=== PATIENT | male | born 1950 | race Caucasian/White ===

== ENCOUNTER 2016-12-25 01:03 | Inpatient (IN) | payer MEDICARE, BC ==
[~2016-12-25] VITALS: Ht 167.6 cm; Wt 77.0 kg
[~2016-12-25 01:03] MED LIST: ASPI81TA3 PO; ATOR10TA65 PO; CARV6.2579 PO; LANT3I SC; LAS20 PO; NIT4 SL; Nicotine (14 Mg/24 Hr) TRANSDERM; SITA1TAB5 PO
[2016-12-25 01:08] VITALS: Ht 167.6 cm; Wt 77.0 kg
[2016-12-25] MEDS ORDERED: OXYCODONE/ACETAMINOPHEN (10/325) TAB PO ONE (01:30)
--- NOTE | 2016-12-25 01:51 | ERD ---
ER Documentation Chief Complaint Date/Time DATE: 12/25/16 TIME: 01:47 Chief Complaint R foot pain radiating to his R leg started 40 mins ago; no swelling noted HPI 66-year-old male presents here in emergency department for complaints of right foot pain on and off that radiates from her right lower back, sharp pain intermittent pain shooting pain 8/10 scale, not better or worse with anything. Patient is diabetic, does not take his gabapentin and Lyrica regularly. Patient also has history of peripheral neuropathy. Patient did exercises this morning, hit the coccyx of the back also. Patient does not have any incontinence. Patient does not have any fever or chills. Patient does not have hematuria or dysuria. ROS All systems reviewed and are negative except as per history of present illness. Medications Home Meds Active Scripts Furosemide (Lasix) 20 Mg Tab, 20 MG PO DAILY, #30 TAB Prov:EBONY LEBRON MD 04/01/16 Atorvastatin Calcium (Atorvastatin Calcium) 10 Mg Tablet, 10 MG PO QHS, #30 TAB Prov:EBONY LEBRON MD 04/01/16 Insulin Glargine* (Lantus*) 100 Unit/Ml Soln, 10 UNIT SC QHS for 90 Days Prov:WILNER CANSECO MD 04/01/16 Sitagliptin Phos/Metformin HCl (Janumet 50-1,000 mg Tablet) 1 Each Tablet, 1 EACH PO BID, #60 TAB Prov:EBONY LEBRON MD 04/01/16 Nitroglycerin* (Nitrostat*) 0.4 Mg Tab.subl, 1 TAB SL Q5M Y for CHEST PAIN, #30 Prov:EBONY LEBRON MD 04/01/16 [Nicotine (14 Mg/24 Hr)] 1 PATCH PATCH No Conflict Check, 1 PATCH TRANSDERM DAILY, #30 Prov:EBONY LEBRON MD 04/01/16 Carvedilol* (Carvedilol*) 6.25 Mg Tablet, 6.25 MG PO BID, #60 TAB Prov:EBONY LEBRON MD 04/01/16 Aspirin (Aspirin) 81 Mg Chew, 81 MG PO DAILY, #30 TAB 1 Refill Prov:EBONY LEBRON MD 04/01/16 Allergies Allergies: Coded Allergies: No Known Allergy (Unverified , 03/31/16) PMhx/Soc History of Surgery: Yes (ANGIOPLASTY, 3 STENTS) Anesthesia Reaction: No Hx Neurological Disorder: No Hx Respiratory Disorders: No Hx Cardiac Disorders: Yes ([place] 2014) Hx Psychiatric Problems: No Hx Miscellaneous Medical Probl: Yes (DM) Hx Alcohol Use: No Hx Substance Use: No Hx Tobacco Use: Yes Smoking Status: Former smoker FmHx Family History: No coronary disease, No diabetes, No other Physical Exam Vitals Vital Signs Date Time Temp Pulse Resp B/P Pulse Ox O2 Delivery O2 Flow Rate FiO2 12/25/16 01:08 97.6 70 20 122/59 96 Physical Exam GENERAL: The patient is well developed and appropriate for usual state of health, in no apparent distress. CHEST: Clear to auscultation bilaterally. There are no rales, wheezes or rhonchi. HEART: Regular rate and rhythm. No murmurs, clicks, rubs or gallops. No S3 or S4. ABDOMEN: Soft, nontender and nondistended. Good bowel sounds. No rebound or guarding. No gross peritonitis. No gross organomegaly or masses. No White sign or McBurney point tenderness. BACK: No midline or flank tenderness. Tenderness on the coccyx. EXTREMITIES: No swelling noted in the right lower leg, no Homans sign. Equal pulses bilaterally. There is no peripheral clubbing, cyanosis or edema. No focal swelling or erythema. Full range of motion. Grossly neurovascularly intact. NEURO: Alert and oriented. Cranial nerves 2-12 intact. Motor strength in all 4 extremities with 5/5 strength. Sensation grossly intact. Normal speech and gait. SKIN: There is no apparent rash or petechia. The skin is warm and dry. HEMATOLOGIC AND LYMPHATIC: There is no evidence of excessive bruising or lymphedema. No gross cervical, axillary, or inguinal lymphadenopathy. Result Diagram: 12/25/16 0150 12/25/16 0150 Results 24 hrs Laboratory Tests Test 12/25/16 01:50 White Blood Count 6.910^3/ul Red Blood Count 2.8510^6/ul Hemoglobin 8.0g/dl Hematocrit 26.4% Mean Corpuscular Volume 92.6fl Mean Corpuscular Hemoglobin 28.1pg Mean Corpuscular Hemoglobin Concent 30.3g/dl Red Cell Distribution Width 15.1% Platelet Count 9410^3/UL Mean Platelet Volume 11.5fl Neutrophils % 36.5% Lymphocytes % 54.4% Monocytes % 7.1% Eosinophils % 1.3% Basophils % 0.3% Nucleated Red Blood Cells % 0.0/100WBC Neutrophils # 2.510^3/ul Lymphocytes # 3.710^3/ul Monocytes # 0.510^3/ul Eosinophils # 0.110^3/ul Basophils # 0.010^3/ul Nucleated Red Blood Cells # 0.010^3/ul Platelet Estimate PLT APPEAR DECREASED Sodium Level 139mmol/L Potassium Level 6.2mmol/L Chloride Level 112mmol/L Carbon Dioxide Level 21mmol/L Anion Gap 12 Blood Urea Nitrogen 34mg/dl Creatinine 2.60mg/dl Glucose Level 121mg/dl Calcium Level 8.6mg/dl Total Bilirubin 0.0mg/dl Direct Bilirubin 0.00mg/dl Indirect Bilirubin 0.0mg/dl Aspartate Amino Transf (AST/SGOT) 21IU/L Alanine Aminotransferase (ALT/SGPT) 33IU/L Alkaline Phosphatase 71IU/L Total Protein 6.4g/dl Albumin 4.0g/dl Globulin 2.40g/dl Albumin/Globulin Ratio 1.66 Current Medications Medications (Trade) Dose Ordered Sig/Taylor Route PRN Reason Start Time Stop Time Status Last Admin Dose Admin Oxycodone/ Acetaminophen (Endocet (10/ 325)) 1 tab ONCE ONCE PO 12/25/16 01:30 12/25/16 01:33 DC 12/25/16 01:44 Patient was given medication for pain here in emergency department, after treatment, patient verbalized feeling much better. Patient's pain is improved. PROCEDURE: US right lower extremity venous Doppler CLINICAL INDICATION: Right leg swelling TECHNIQUE: Multiple sonographic images of the right lower extremity deep venous system was obtained utilizing grayscale, color-flow, compressive sonography and Doppler imaging with augmentation. COMPARISON: No pertinent prior examinations were submitted for comparison. FINDINGS: There is normal compressibility and flow within the right common femoral, superficial femoral, popliteal, and peroneal veins. IMPRESSION: No sonographic evidence for deep venous thrombosis. RPTAT: HIKT .Osman Abi, MD, MD Date Time Electronically viewed and signed by .Osman Alex MD, MD on 12/25/2016 02:27 .T/ CC: RAE BUCKLEY NP PROCEDURE: CT Lumbar Spine. CLINICAL INDICATION: Lower back pain TECHNIQUE: Noncontrast CT of the lumbar spine was performed with multiplanar reformatted images generated from the axial acquired data. The administered radiation dose was CTDI vol = 17 mGy, DLP = 692 mGy-cm. COMPARISON: There are no similar studies submitted for comparison. FINDINGS: SCOLIOSIS: No significant scoliosis. LORDOSIS: Within normal limits. VERTEBRAL BODY HEIGHTS: Maintained. ALLIGNMENT: Within normal limits. OSSEOUS STRUCTURES: There is no destructive osseous lesion.There is no acute fracture. DISCS: There is some mild loss of disk height throughout the lumbar spine with some minimal adjacent endplate degenerative changes. T12-L1 : There is no disc herniation, spinal canal, or foraminal stenosis. L1-L2 : There is no disc herniation, spinal canal, or foraminal stenosis. L2-L3 : There is no disc herniation, spinal canal, or foraminal stenosis. L3-L4 : There is mild diffuse disk bulge with mild spinal canal narrowing. There is no significant neural foraminal narrowing. L4-L5 : There is mild diffuse disk bulge with mild spinal canal narrowing. There is no significant neural foraminal narrowing. L5-S1 : There is mild diffuse disk bulge without significant spinal canal or neural foraminal narrowing. SACRUM: The sacroiliac joints are intact. OTHER: Atherosclerotic calcifications are noted within the aorta and its branches. There is concentric thickening of the bladder torres. A small exophytic right renal cyst is noted. IMPRESSION: Mild disk bulges from L3-4 through L5-S1. No acute fracture or subluxation. Bladder wall thickening. Please correlate with urinalysis to exclude infection. RPTAT: HIKT .Osman Alex MD, MD Date Time Electronically viewed and signed by .Osman Alex MD, MD on 12/25/2016 03:02 Laboratory tests results were obtained, critical laboratory values was obtained from the laboratory, patient has an elevated potassium of 6.2, creatinine is 2.6 , considering also microcytic anemia, patient was not at acute renal failure, unknown length of time, patient also has low hemoglobin and hematocrit, and low platelets, tachycardia causing some of the petechiae. Discussed the case with my attending physician, Dr. Morrison, facility patient's admission to the hospital. Patient's right lower leg pain and lower back pain most likely is consistent with neuropathic pain and a back contusion. Patient has degenerative disc disease possibly causing some neuropathic pain, aggravated by his diabetes. Departure Diagnosis: Primary Impression: Acute renal failure Acute renal failure type: unspecified Qualified Code: N17.9 - Acute renal failure, unspecified acute renal failure type Additional Impressions: Thrombocytopenia Back pain Back pain location: low back pain Chronicity: acute Back pain laterality: bilateral Sciatica presence: without sciatica Qualified Code: M54.5 - Acute bilateral low back pain without sciatica Leg pain Laterality: right Qualified Code: M79.604 - Pain of right lower extremity Hyperkalemia Condition: RAE eJrnigan NP Dec 25, 2016 01:51
[2016-12-25 02:16] LABS: ADD SCAN DIFF NO
[2016-12-25 02:19] LABS: ABNORMAL IP MESSAGE 1; BASOPHILS % 0.3 % (0.0-2.0); EOSINOPHILS # 0.1 10^3/ul (0.0-0.5); EOSINOPHILS % 1.3 % (0.0-7.0); HEMATOCRIT 26.4 % (42.0-52.0); LYMPHOCYTES # 3.7 10^3/ul (0.8-2.9); LYMPHOCYTES % 54.4 % (15.0-51.0); MEAN CORPUSCULAR HEMOGLOBIN 28.1 pg (29.0-33.0); MEAN CORPUSCULAR HGB CONC 30.3 g/dl (32.0-37.0); MEAN CORPUSCULAR VOLUME 92.6 fl (82.0-101.0); MEAN PLATELET VOLUME 11.5 fl (7.4-10.4); MONOCYTE # 0.5 10^3/ul (0.3-0.9); MONOCYTES % 7.1 % (0.0-11.0); NEUTROPHIL # 2.5 10^3/ul (1.6-7.5); NEUTROPHILS % 36.5 % (39.0-77.0); PLATELET COUNT 94 10^3/UL (140-415); RED BLOOD COUNT 2.85 10^6/ul (4.70-6.10); RED CELL DISTRIBUTION WIDTH 15.1 % (11.5-14.5); WHITE BLOOD COUNT 6.9 10^3/ul (4.8-10.8)
--- NOTE | 2016-12-25 02:27 | RADRPT ---
PROCEDURE: US right lower extremity venous Doppler CLINICAL INDICATION: Right leg swelling TECHNIQUE: Multiple sonographic images of the right lower extremity deep venous system was obtaine d utilizing grayscale, color-flow, compressive sonography and Doppler imaging with augmentation. COMPARISON: No pertinent prior examinations were submitted for comparison. FINDINGS: There is normal compressibility and flow within the right common femoral, superficial femoral, popli teal, and peroneal veins. IMPRESSION: No sonographic evidence for deep venous thrombosis. RPTAT: HIKT .Osman Alex MD, MD Date Time Electronically viewed and signed by .Osman Alex MD, MD on 12/25/2016 02:27 .T/
[2016-12-25 02:39] LABS: ALBUMIN/GLOBULIN RATIO 1.66; CALCIUM 8.6 mg/dl (8.4-10.2); CREATININE 2.6 mg/dl (0.61-1.24); TOTAL PROTEIN 6.4 g/dl (6.1-8.1)
[2016-12-25 02:43] LABS: PLATELET ESTIMATE PLT APPEAR DECREASED
[2016-12-25 02:46] LABS: POTASSIUM 6.2 mmol/L (3.5-5.1)
--- NOTE | 2016-12-25 03:03 | RADRPT ---
PROCEDURE: CT Lumbar Spine. CLINICAL INDICATION: Lower back pain TECHNIQUE: Noncontrast CT of the lumbar spine was performed with multiplanar reformatted images gen erated from the axial acquired data. The administered radiation dose was CTDI vol = 17 mGy, DLP = 6 92 mGy-cm. COMPARISON: There are no similar studies submitted for comparison. FINDINGS: SCOLIOSIS: No significant scoliosis. LORDOSIS: Within normal limits. VERTEBRAL BODY HEIGHTS: Maintained. ALLIGNMENT: Within normal limits. OSSEOUS STRUCTURES: There is no destructive osseous lesion.There is no acute fracture. DISCS: There is some mild loss of disk height throughout the lumbar spine with some minimal adjacent endplate degenerative changes. T12-L1 : There is no disc herniation, spinal canal, or foraminal stenosis. L1-L2 : There is no disc herniation, spinal canal, or foraminal stenosis. L2-L3 : There is no disc herniation, spinal canal, or foraminal stenosis. L3-L4 : There is mild diffuse disk bulge with mild spinal canal narrowing. There is no significant n eural foraminal narrowing. L4-L5 : There is mild diffuse disk bulge with mild spinal canal narrowing. There is no significant n eural foraminal narrowing. L5-S1 : There is mild diffuse disk bulge without significant spinal canal or neural foraminal narrow ing. SACRUM: The sacroiliac joints are intact. OTHER: Atherosclerotic calcifications are noted within the aorta and its branches. There is concent ana cristina thickening of the bladder torres. A small exophytic right renal cyst is noted. IMPRESSION: Mild disk bulges from L3-4 through L5-S1. No acute fracture or subluxation. Bladder wall thickening. Please correlate with urinalysis to exclude infection. RPTAT: HIKT .Osman Alex MD, Date Time Electronically viewed and signed by .Osman Alex MD, on 12/25/2016 03:02 .T/
[2016-12-25] MEDS ORDERED: INSULIN REGULAR, HUMAN 100 UNIT/1 ML 3ML VIAL IV STA (03:09)
[2016-12-25] MEDS ORDERED: ALBUTEROL 0.5% (NEB) 2.5 MG/0.5 ML AMP INH STA (03:09)
[2016-12-25] MEDS ORDERED: NA POLYST SULFON 15 GM/60 ML BTL PO STA (03:09)
--- NOTE | 2016-12-25 03:29 | ERA ---
ER Documentation Chief Complaint Date/Time DATE: 12/25/16 TIME: 03:23 Chief Complaint R foot pain radiating to his R leg started 40 mins ago; no swelling noted HPI The patient is 66-year-old male, presenting to the ER because of right foot pain , right leg pain that began about 40 minutes prior to arrival. He was initially seen by the PA. He denies similar symptoms previously, denies fever, chills, neck pain, chest pain, dyspnea, abdominal pain, vomiting, dysuria, diarrhea, denies any trauma. He denies any hematemesis, hematochezia Past medical history: Cardiomyopathy, diabetes mellitus, hypertension ROS All systems reviewed and are negative except as per history of present illness. Medications Home Meds Active Scripts Furosemide (Lasix) 20 Mg Tab, 20 MG PO DAILY, #30 TAB Prov:EBONY LEBRON MD 04/01/16 Atorvastatin Calcium (Atorvastatin Calcium) 10 Mg Tablet, 10 MG PO QHS, #30 TAB Prov:EBONY LEBRON MD 04/01/16 Insulin Glargine* (Lantus*) 100 Unit/Ml Soln, 10 UNIT SC QHS for 90 Days Prov:WILNER CANSECO MD 04/01/16 Sitagliptin Phos/Metformin HCl (Janumet 50-1,000 mg Tablet) 1 Each Tablet, 1 EACH PO BID, #60 TAB Prov:EBONY LEBRON MD 04/01/16 Nitroglycerin* (Nitrostat*) 0.4 Mg Tab.subl, 1 TAB SL Q5M Y for CHEST PAIN, #30 Prov:EBONY LEBRON MD 04/01/16 [Nicotine (14 Mg/24 Hr)] 1 PATCH PATCH No Conflict Check, 1 PATCH TRANSDERM DAILY, #30 Prov:EBONY LEBRON MD 04/01/16 Carvedilol* (Carvedilol*) 6.25 Mg Tablet, 6.25 MG PO BID, #60 TAB Prov:EBONY LEBRON MD 04/01/16 Aspirin (Aspirin) 81 Mg Chew, 81 MG PO DAILY, #30 TAB 1 Refill Prov:EBONY LEBRON MD 04/01/16 Allergies Allergies: Coded Allergies: No Known Allergy (Unverified , 03/31/16) PMhx/Soc History of Surgery: Yes (ANGIOPLASTY, 3 STENTS) Anesthesia Reaction: No Hx Neurological Disorder: No Hx Respiratory Disorders: No Hx Cardiac Disorders: Yes ([place] 2014) Hx Psychiatric Problems: No Hx Miscellaneous Medical Probl: Yes (DM) Hx Alcohol Use: No Hx Substance Use: No Hx Tobacco Use: Yes Smoking Status: Former smoker Physical Exam Vitals Vital Signs Date Time Temp Pulse Resp B/P Pulse Ox O2 Delivery O2 Flow Rate FiO2 12/25/16 01:08 97.6 70 20 122/59 96 Physical Exam Const: No acute distress. Head: Atraumatic. Eyes: Normal Conjunctiva. ENT: Normal External Ears, Nose and Mouth. Neck: Full range of motion. No meningismus. Resp: Clear to auscultation bilaterally. Cardio: Regular rate and rhythm. Abd: Soft, non distended, normal bowel sounds, non tender. Skin: No petechiae or rashes. Back: No midline or flank tenderness. Ext: Minimal right calf tenderness, no petechiae, no vesicles Neur: Awake and alert. No focal deficit Psych: Normal Mood and Affect. Result Diagram: 12/25/16 0150 12/25/16 0150 Results 24 hrs Laboratory Tests Test 12/25/16 01:50 White Blood Count 6.910^3/ul Red Blood Count 2.8510^6/ul Hemoglobin 8.0g/dl Hematocrit 26.4% Mean Corpuscular Volume 92.6fl Mean Corpuscular Hemoglobin 28.1pg Mean Corpuscular Hemoglobin Concent 30.3g/dl Red Cell Distribution Width 15.1% Platelet Count 9410^3/UL Mean Platelet Volume 11.5fl Neutrophils % 36.5% Lymphocytes % 54.4% Monocytes % 7.1% Eosinophils % 1.3% Basophils % 0.3% Nucleated Red Blood Cells % 0.0/100WBC Neutrophils # 2.510^3/ul Lymphocytes # 3.710^3/ul Monocytes # 0.510^3/ul Eosinophils # 0.110^3/ul Basophils # 0.010^3/ul Nucleated Red Blood Cells # 0.010^3/ul Platelet Estimate PLT APPEAR DECREASED Sodium Level 139mmol/L Potassium Level 6.2mmol/L Chloride Level 112mmol/L Carbon Dioxide Level 21mmol/L Anion Gap 12 Blood Urea Nitrogen 34mg/dl Creatinine 2.60mg/dl Glucose Level 121mg/dl Calcium Level 8.6mg/dl Total Bilirubin 0.0mg/dl Direct Bilirubin 0.00mg/dl Indirect Bilirubin 0.0mg/dl Aspartate Amino Transf (AST/SGOT) 21IU/L Alanine Aminotransferase (ALT/SGPT) 33IU/L Alkaline Phosphatase 71IU/L Total Protein 6.4g/dl Albumin 4.0g/dl Globulin 2.40g/dl Albumin/Globulin Ratio 1.66 Current Medications Medications (Trade) Dose Ordered Sig/Taylor Route PRN Reason Start Time Stop Time Status Last Admin Dose Admin Oxycodone/ Acetaminophen (Endocet (10)) 1 tab ONCE ONCE PO 12/25/16 01:30 12/25/16 01:33 DC 12/25/16 01:44 Sodium Polystyrene Sulfonate (Kayexalate) 30 gm ONCE STAT PO 12/25/16 03:09 12/25/16 03:12 DC Albuterol (Proventil 0.5% (Neb)) 15 mg ONCE STAT INH 12/25/16 03:09 12/25/16 03:12 DC 12/25/16 03:21 Insulin Human Regular (Humulin R) 10 unit ONCE STAT IV 12/25/16 03:09 12/25/16 03:12 DC Dextrose (D50w Syringe) 100 ml ONCE ONCE IV 12/25/16 03:30 12/25/16 03:31 Procedures/[place] [id number] Radiology Main Line: [phone] DIAGNOSTIC IMAGING REPORT Patient: MANOLO BRAND : 1950 Age: 66 Sex: M MR #: [id number] DOS: 12/25/16 0129 Ordering MD: RAE BUCKLEY NP Location: [facility] Room/Bed: PROCEDURE: US right lower extremity venous Doppler CLINICAL INDICATION: Right leg swelling TECHNIQUE: Multiple sonographic images of the right lower extremity deep venous system was obtained utilizing grayscale, color-flow, compressive sonography and Doppler imaging with augmentation. COMPARISON: No pertinent prior examinations were submitted for comparison. FINDINGS: There is normal compressibility and flow within the right common femoral, superficial femoral, popliteal, and peroneal veins. IMPRESSION: No sonographic evidence for deep venous thrombosis. RPTAT: HIKT .Osman Alex MD, Date Time Electronically viewed and signed by .Osman Alex MD, on 12/25/2016 02:27 .T/ CC: RAE BUCKLEY NP EKG: Read by emergency physician Rate/Rhythm: Normal Sinus Rhythm 63 beats/min QRS, ST, T-waves: No ST elevation, peak T waves in anterior leads, septal Q waves Impression: Abnormal EKG MEDICAL MAKING DECISION: The patient is a 66-year-old male, presenting with acute kidney injury, acute hyperkalemia, probable acute GI bleed, anemia, thrombocytopenia and right leg pain of unclear etiology. He was treated with albuterol and 50 mg nebulizer over 15 minute, 2 amp D50 IV, 10 units of regular insulin IV, Kayexalate 30 g p.o. for acute hyperkalemia with good response per The differential diagnoses considered include but are not limited to gastritis, peptic ulcer disease, esophageal varices, Chelsie-Harp tear, carcinoma, polyp, hemorrhoid, fissure, diverticulosis, angiodysplasia. Critical Care: Time: 35 minutes excluding all billable procedures. Treatments/Evaluations: Close monitoring and treatment of unstable vital signs, cardiorespiratory, and neurologic status, while maintaining tight balance of fluid, respiratory, and cardiac interventions. Departure Diagnosis: Primary Impression: Acute renal failure Qualified Code: N17.9 - Acute renal failure, unspecified acute renal failure type Additional Impressions: Hyperkalemia GI bleed Anemia Thrombocytopenia Condition: Serious Comments I discussed the findings with the patient. I discussed the patient with the on- call hospitalist Dr. Kilgore at 3 AM who was made aware of the lab, the treatment, the patient condition. The patient is admitted to telemetry STERLING AGUILAR MD Dec 25, 2016 03:28
[2016-12-25] MEDS ORDERED: DEXTROSE 50% 50 ML SYRINGE IV ONE (03:30)
[2016-12-25] MEDS ORDERED: BISACODYL (EC) 5 MG TAB PO PRN (05:00)
[2016-12-25] MEDS ORDERED: DOCUSATE SODIUM 100 MG CAP PO PRN (05:00)
[2016-12-25] MEDS ORDERED: morphine 2 MG INJ IV PRN (05:00)
[2016-12-25] MEDS ORDERED: NACL 0.9% 3 ML SYG IV SCH (05:00)
[2016-12-25] MEDS ORDERED: ACETAMINOPHEN 325 MG TAB PO PRN (05:00)
[2016-12-25] MEDS: ONDANSETRON 4 MG INJ IV PRN ×2 (05:46→13:50)
[2016-12-25] MEDS: HEPARIN 5,000 UNIT/0.5 ML VIAL SC SCH ×3 (05:46→22:50)
[2016-12-25] MEDS ORDERED: PANTOPRAZOLE 40 MG INJ IV SCH (06:00)
[2016-12-25] MEDS ORDERED: FUROSEMIDE 20 MG TAB PO SCH (06:00)
--- NOTE | 2016-12-25 06:48 | HP ---
Date/Time of Note Date/Time of Note DATE: 12/25/16 TIME: 06:34 Assessment/Plan VTE Prophylaxis VTE Prophylaxis Intervention: SCD's Lines/Catheters IV Catheter Type (from Nrsg): Peripheral IV Assessment/Plan Chief Complaint/Hosp Course This is a 66-year-old male being admitted to telemetry floor for: #1 Right foot: Patient is having intermittent episodes of shooting pains in his right foot second digit and third digit. There are no lesions noted of the digits. There is poorly healing wound at the right medial malleolus which is nontender. At the current time the etiology of this pain appears to be neuropathy however patient has never had this sort of pain before. Initially we will get x-rays of the foot. We will consult podiatry for further evaluation. IV pain medications to help with pain control. Consider starting Lyrica/gabapentin. Ultrasound was negative for any DVTs. #2 chronic kidney disease: Patient's outpatient relief master is Dr. Hodges, however he is unavailable and he requested patient to be seen by another relief master. Consult placed to Dr. Quach. Will provide him some IV fluid hydration. Please see #3 regarding hyperkalemia. #3 hyperkalemia: Patient's potassium is 6.2. He was give treatment in the ED for the hyperkalemia. We will repeat a potassium in the next 2 hours. And treat if indicated. #4 diabetes mellitus: Check A1c. Continue home insulin dose. Insulin sliding scale #5 coronary artery disease: Continue home medications. #6 Normocytic anemia: Hemoglobin of 8. This likely secondary to patient's underlying chronic kidney disease. Continue to monitor hemoglobin. Blood transfusions if hemoglobin drops below 8 secondary to patient's cardiac history. Will defer to nephrology for Procrit/Epogen treatment. #7 back pain: Patient had mild tenderness to palpation of the left gluteal/ coccyx region. Lumbar imaging studies showed mild disc bulges but no acute subluxation. Continue to monitor. #8 DVT and GI prophylaxis: SCDs, Protonix Further treatment strategy will be implemented as per the clinical course Problems: HPI/ROS Admit Date/Time Admit Date/Time Hx of Present Illness Chief complaint: Right second and third digit toe pain This is a 66-year-old male presents here in emergency department for complaints of right foot pain on and off that radiates from her right lower back, sharp pain intermittent pain shooting pain 8/10 scale, not better or worse with anything. Patient is diabetic, does not take his gabapentin and Lyrica regularly. Patient also has history of peripheral neuropathy. Patient did exercises this morning, hit the coccyx of the back also. Patient does not have any incontinence. Patient does not have any fever or chills. Patient does not have hematuria or dysuria. Allergies: NKDA Medications: See SHARON PIMENTEL Const: As per HPI Eyes : No pain discharge or redness or change in visual acuity ENT: No pain, sore throat, congestion, congestion, dysphagia or discharge Respiratory: No shortness of breath, cough, sputum, wheezing, or pleuritic pain Cardiovascular: No chest pain, palpitation, PND, or edema GI : no change in appetite, abdominal pain, nausea, vomiting, diarrhea, constipation, or change in the color his stool Genitourinary: No dysuria, hematuria, flank pain , discharge or CVA tenderness Musculoskeletal: As per HPI Skin: No rash, bruising or hives Neuro: No headache, dizziness, syncope, seizure, focal weakness Endocrine: No polyuria, polydipsia, temperature intolerance Psych: No hallucination, depression, anxiety or suicidal ideation PMH/Family/Social Past Medical History Chronic kidney disease, diabetes mellitus, coronary artery disease, history of MS Past Surgical History Cardiac stents 2 Family History Significant Family History: hypertension Social History Smoking Status: Former smoker (Quit 8 months ago, [id number] smoking history) Exam/Review of Systems Vital Signs Vitals Vital Signs Date Time Temp Pulse Resp B/P Pulse Ox O2 Delivery O2 Flow Rate FiO2 12/25/16 03:23 70 18 97 21 12/25/16 01:08 97.6 122/59 Exam Exam General: Patient is well-developed male lying in bed who has intermittent spurts of pain in his right lower extremity at the toes that come and go. HEENT: Atraumatic, normocephalic. The pupils are equal, round and reactive. Extraocular motor are intact Neck: Supple with full range of motion. No rigidity or meningismus Chest: Nontender Lungs: Clear to auscultation bilaterally no crackles rales or wheezing Heart: Normal S1-S2, Regular rhythm and rate. No murmur, S3, or S4 Abdomen: Soft , nontender, nondistended , bowel sounds are present. No guarding no rebound tenderness , No masses or organomegaly. No costovertebral temporal angle mass Extremities: Normal to inspection, no edema no cyanosis, no lesions of the right second and third digits of the right foot. He does have a small lesion at the medial malleolus which is nontender. Left gluteus/coccyx pain to palpation. Neurologic: Normal mental status, speech normal, cranial nerves II through XII are intact, motor and sensory are intact, no focal weakness Additional Comments PROCEDURE: CT Lumbar Spine. CLINICAL INDICATION: Lower back pain TECHNIQUE: Noncontrast CT of the lumbar spine was performed with multiplanar reformatted images generated from the axial acquired data. The administered radiation dose was CTDI vol = 17 mGy, DLP = 692 mGy-cm. COMPARISON: There are no similar studies submitted for comparison. FINDINGS: SCOLIOSIS: No significant scoliosis. LORDOSIS: Within normal limits. VERTEBRAL BODY HEIGHTS: Maintained. ALLIGNMENT: Within normal limits. OSSEOUS STRUCTURES: There is no destructive osseous lesion.There is no acute fracture. DISCS: There is some mild loss of disk height throughout the lumbar spine with some minimal adjacent endplate degenerative changes. T12-L1 : There is no disc herniation, spinal canal, or foraminal stenosis. L1-L2 : There is no disc herniation, spinal canal, or foraminal stenosis. L2-L3 : There is no disc herniation, spinal canal, or foraminal stenosis. L3-L4 : There is mild diffuse disk bulge with mild spinal canal narrowing. There is no significant neural foraminal narrowing. L4-L5 : There is mild diffuse disk bulge with mild spinal canal narrowing. There is no significant neural foraminal narrowing. L5-S1 : There is mild diffuse disk bulge without significant spinal canal or neural foraminal narrowing. SACRUM: The sacroiliac joints are intact. OTHER: Atherosclerotic calcifications are noted within the aorta and its branches. There is concentric thickening of the bladder torres. A small exophytic right renal cyst is noted. IMPRESSION: Mild disk bulges from L3-4 through L5-S1. No acute fracture or subluxation. Bladder wall thickening. Please correlate with urinalysis to exclude infection. RPTAT: HIKT .Osman Alex MD, MD Date Time Electronically viewed and signed by .Osman Alex MD, MD on 12/25/2016 03:02 PROCEDURE: US right lower extremity venous Doppler CLINICAL INDICATION: Right leg swelling TECHNIQUE: Multiple sonographic images of the right lower extremity deep venous system was obtained utilizing grayscale, color-flow, compressive sonography and Doppler imaging with augmentation. COMPARISON: No pertinent prior examinations were submitted for comparison. FINDINGS: There is normal compressibility and flow within the right common femoral, superficial femoral, popliteal, and peroneal veins. IMPRESSION: No sonographic evidence for deep venous thrombosis. RPTAT: HIKT .Osman Alex MD, Date Time Electronically viewed and signed by .Osman Alex MD, on 12/25/2016 02:27 Labs Result Diagram: 12/25/16 0150 12/25/16 0150 Medications Medications Current Medications Aspirin (Aspirin) 81 mg DAILY PO ; Start 12/25/16 at 09:00 Atorvastatin Calcium (Lipitor) 10 mg QHS PO ; Start 12/25/16 at 21:00 Carvedilol (Coreg) 6.25 mg BID PO ; Start 12/25/16 at 09:00 Furosemide (Lasix) 20 mg DAILY@06 PO Last administered on 12/25/16 05:44; Admin Dose 20 MG; Start 12/25/16 at 06:00 Insulin Glargine (Lantus) 10 unit QHS SC ; Start 12/25/16 at 21:00 Nicotine (Nicoderm 14 Mg/ 24hr) 1 patch DAILY TRANSDERM ; Start 12/25/16 at 09: 00 Ondansetron HCl (Zofran Inj) 4 mg Q6H PRN IV NAUSEA AND/OR VOMITING Last administered on 12/25/16 05:46; Admin Dose 4 MG; Start 12/25/16 at 05:00 Acetaminophen (Tylenol Tab) 650 mg Q6H PRN PO PAIN LEVEL 1-3 OR FEVER; Start at 05:00 Docusate Sodium (Colace) 100 mg Q12H PRN PO CONSTIPATION; Start 12/25/16 at 05: 00 Bisacodyl (Dulcolax) 5 mg DAILY PRN PO CONSTIPATION; Start 12/25/16 at 05:00 Pantoprazole (Protonix Iv) 40 mg DAILY@06 IV Last administered on 12/25/16 05: 45; Admin Dose 40 MG; Start 12/25/16 at 06:00 Heparin Sodium (Porcine) (Heparin (5000 Units/0.5 ml)) 5,000 unit Q8 SC Last administered on 12/25/16 05:46; Admin Dose 5,000 UNIT; Start 12/25/16 at 06:00 Hydromorphone HCl (Dilaudid) 1 mg Q4H PRN IV PAIN; Start 12/25/16 at 06:30; Status DMITRY CAMPOS Dec 25, 2016 06:44
[2016-12-25] MEDS: HYDROmorphONE 1 MG/ML SYG IV PRN ×3 (07:12→13:03)
--- NOTE | 2016-12-25 07:46 | RADRPT ---
PROCEDURE: XR Foot. CLINICAL INDICATION: Second and third digit pain TECHNIQUE: Three views of the right foot are available for review. COMPARISON: None available FINDINGS: The osseous structures, articular spaces, and surrounding soft tissues are intact. No acute fractur e or dislocation is seen. No radiopaque foreign body is identified. Bony mineralization is normal. IMPRESSION: 1. Unremarkable right foot x-ray series. RPTAT: PP .Ryder Pulido MD, MD Date Time Electronically viewed and signed by .Ryder Pulido MD, on 12/25/2016 07:45 .R/
[2016-12-25] MEDS: ASPIRIN 81 MG TAB PO SCH (08:39)
[2016-12-25] MEDS: NICOTINE (14 MG/24 HR) PATCH TRANSDERM SCH (08:40)
[2016-12-25 12:11] LABS: ADD SCAN DIFF NO
[2016-12-25 12:13] LABS: BASOPHILS % 0.6 % (0.0-2.0); EOSINOPHILS # 0.1 10^3/ul (0.0-0.5); EOSINOPHILS % 1.3 % (0.0-7.0); HEMATOCRIT 27.1 % (42.0-52.0); HEMOGLOBIN 8.6 g/dl (14.0-18.0); LYMPHOCYTES % 55.8 % (15.0-51.0); MEAN CORPUSCULAR HEMOGLOBIN 28.5 pg (29.0-33.0); MEAN CORPUSCULAR HGB CONC 31.7 g/dl (32.0-37.0); MEAN CORPUSCULAR VOLUME 89.7 fl (82.0-101.0); MONOCYTE # 0.5 10^3/ul (0.3-0.9); MONOCYTES % 6.3 % (0.0-11.0); NEUTROPHIL # 2.5 10^3/ul (1.6-7.5); NEUTROPHILS % 35.6 % (39.0-77.0); PLATELET COUNT 160 10^3/UL (140-415); RED BLOOD COUNT 3.02 10^6/ul (4.70-6.10); RED CELL DISTRIBUTION WIDTH 15.1 % (11.5-14.5); WHITE BLOOD COUNT 7.1 10^3/ul (4.8-10.8)
[2016-12-25 12:56] LABS: CHOL/HDL RATIO 7.4 RATIO
[2016-12-25] MEDS ORDERED: MAGNESIUM SULFATE 2 GM/50 ML 50 ML IVPB ONE (15:00)
[2016-12-25 15:27] LABS: CALCIUM 8.7 mg/dl (8.4-10.2); CREATININE 2.35 mg/dl (0.61-1.24)
[2016-12-25] MEDS ORDERED: traMADol 50 MG TAB PO PRN (16:00)
--- NOTE | 2016-12-25 16:15 | PN ---
Date/Time of Note Date/Time of Note DATE: 12/25/16 TIME: 16:09 Assessment/Plan VTE Prophylaxis VTE Prophylaxis Intervention: SCD's Lines/Catheters IV Catheter Type (from Nrsg): Peripheral IV Assessment/Plan Assessment/Plan 66 yo M with pmhx HTN, DM, initially presented for R foot pain also incidentally found to have PHIL, hyperkalemia and anemia. #R foot pain: imaging without evidence of fracture. consider occult fracture v mortons neuroma v other no open wounds, given palpable pulse and nl cap refill less likely vascular process -podiatry to see #PHIL: etio unclear. Dehydration v other check urine lytes to determine pre/instrinsic/post renal check YESIKA though unlikely obstruction as no c/o urinary difficulties IVFs holding home lasix #hyperkalemia: suspect 2/2 PHIL given no report in ER notes of EKG abs, defer additional aggressive hyperK treatment at this time IVFs, low K diet consider lasix if Cr improves #anemia: etio and time course unclear. GI source v CKD v other FOBT iron studies #elevated TSH: incidental finding. check t4 #DM2: SSI and basal/bolus #tobacco abuse: NRT FEN: low K diet, mIVFs, DVT prophx Subjective 24 Hr Interval Summary Free Text/Dictation Pt still with intermittent R foot pain. Possibly wasn't taking in enough fluids in days prior to admission when he was exercising in the heat. Denies dark stool. Also denies any R foot injury Exam/Review of Systems Vital Signs Vitals Vital Signs Date Time Temp Pulse Resp B/P Pulse Ox O2 Delivery O2 Flow Rate FiO2 12/25/16 11:20 97.6 80 12 111/94 99 Room Air 12/25/16 03:23 21 Exam nad, laying in bed no mrg lungs clear abd soft R foot with palpable DP pulse, nl cap refill, +ttp in area between great and second toe MCPs. repeat ChemP with slightly improve K and Cr Hgb noted Results Result Diagram: 12/25/16 1200 12/25/16 1455 Results 24 hrs Laboratory Tests Test 12/25/16 01:50 12/25/16 12:00 12/25/16 14:55 White Blood Count 6.9 7.1 Red Blood Count 2.85 #L 3.02 L Hemoglobin 8.0 #L 8.6 L Hematocrit 26.4 #L 27.1 L Mean Corpuscular Volume 92.6 89.7 Mean Corpuscular Hemoglobin 28.1 L 28.5 L Mean Corpuscular Hemoglobin Concent 30.3 L 31.7 L Red Cell Distribution Width 15.1 H 15.1 H Platelet Count 94 L 160 # Mean Platelet Volume 11.5 #H 10.0 Neutrophils % 36.5 L 35.6 L Lymphocytes % 54.4 H 55.8 H Monocytes % 7.1 6.3 Eosinophils % 1.3 1.3 Basophils % 0.3 0.6 Nucleated Red Blood Cells % 0.0 0.0 Neutrophils # 2.5 2.5 Lymphocytes # 3.7 H 4.0 H Monocytes # 0.5 0.5 Eosinophils # 0.1 0.1 Basophils # 0.0 0.0 Nucleated Red Blood Cells # 0.0 0.0 Platelet Estimate PLT APPEAR DECREASED Sodium Level 139 143 Potassium Level 6.2 *H 6.0 H Chloride Level 112 H 106 Carbon Dioxide Level 21 23 Anion Gap 12 20 #H Blood Urea Nitrogen 34 H 33 H Creatinine 2.60 H 2.35 H Glucose Level 121 165 Calcium Level 8.6 8.7 Total Bilirubin 0.0 L Direct Bilirubin 0.00 Indirect Bilirubin 0.0 Aspartate Amino Transf (AST/SGOT) 21 Alanine Aminotransferase (ALT/SGPT) 33 Alkaline Phosphatase 71 Total Protein 6.4 Albumin 4.0 Globulin 2.40 Albumin/Globulin Ratio 1.66 Hemoglobin A1c 8.0 H Magnesium Level 1.1 L Triglycerides Level 266 H Cholesterol Level 232 H LDL Cholesterol, Calculated 148 HDL Cholesterol 31 Cholesterol/HDL Ratio 7.4 Thyroid Stimulating Hormone (TSH) 10.800 H Free Thyroxine 1.21 Thyroxine (T4) 8.0 Medications Medications Current Medications Aspirin (Aspirin) 81 mg DAILY PO Last administered on 12/25/16 08:39; Admin Dose 81 MG; Start 12/25/16 at 09:00 Atorvastatin Calcium (Lipitor) 10 mg QHS PO ; Start 12/25/16 at 21:00 Carvedilol (Coreg) 6.25 mg BID PO ; Start 12/25/16 at 09:00 Furosemide (Lasix) 20 mg DAILY@06 PO Last administered on 12/25/16 05:44; Admin Dose 20 MG; Start 12/25/16 at 06:00 Insulin Glargine (Lantus) 10 unit QHS SC ; Start 12/25/16 at 21:00 Nicotine (Nicoderm 14 Mg/ 24hr) 1 patch DAILY TRANSDERM ; Start 12/25/16 at 09: 00 Ondansetron HCl (Zofran Inj) 4 mg Q6H PRN IV NAUSEA AND/OR VOMITING Last administered on 12/25/16 13:50; Admin Dose 4 MG; Start 12/25/16 at 05:00 Acetaminophen (Tylenol Tab) 650 mg Q6H PRN PO PAIN LEVEL 1-3 OR FEVER; Start at 05:00 Docusate Sodium (Colace) 100 mg Q12H PRN PO CONSTIPATION; Start 12/25/16 at 05: 00 Bisacodyl (Dulcolax) 5 mg DAILY PRN PO CONSTIPATION; Start 12/25/16 at 05:00 Heparin Sodium (Porcine) 5000 unit 5,000 unit Q8 SC Last administered on 14:13; Admin Dose 5,000 UNIT; Start 12/25/16 at 06:00 Magnesium Sulfate 50 ml @ 25 mls/hr ONCE ONCE IVPB ; Start 12/25/16 at 15:00; Stop 12/25/16 at 16:59 Sodium Chloride (NS) 1,000 ml @ 125 mls/hr Q8H IV ; Start 12/25/16 at 15:00 Tramadol HCl (Ultram) 50 mg Q6H PRN PO pain; Start 12/25/16 at 16:00 FERNANDEZ GIANG MD Dec 25, 2016 16:15
[2016-12-25] MEDS: SOD CHLORIDE 0.9% 1,000 ML IV SCH ×2 (17:18→23:00)
--- NOTE | 2016-12-25 17:21 | RADRPT ---
PROCEDURE: US Renal CLINICAL INDICATION: Acute renal insufficiency. TECHNIQUE: Multiple sonographic images of the kidneys and bladder were obtained. Evaluation of th e kidneys and bladder was performed as well with batres scale and color and Doppler evaluation using a curved array transducer. The images were reviewed on a high-resolution PACS workstation. COMPARISON: No prior studies are available for comparison. FINDINGS: The right kidney measures 12.0 x 5.4 x 5.9 cm. The left kidney measures 12.4 x 5.2 x 5.2 cm. There is normal echogenicity within the parenchyma of the kidneys bilaterally. There is no evidence of hydronephrosis or abnormal calcifications. There is a 1.0 cm cortical cyst in the right kidney.. No perinephric fluid collection is seen. Evaluation of the urinary bladder is unremarkable. IMPRESSION: 1. 1.0 cm right renal cortical cyst. RPTAT: [facility] Physician Abraham Date Time Electronically viewed and signed by Physician Abraham on 12/25/2016 17:20 /
[2016-12-25 17:43] LABS: ADD UMIC YES; UR ASCORBIC ACID NEGATIVE (NEGATIVE); UR BILIRUBIN (Dip) NEGATIVE (NEGATIVE); UR BLOOD (Dip) NEGATIVE (NEGATIVE); UR CLARITY CLEAR (CLEAR); UR COLOR STRAW (YELLOW); UR GLUCOSE (Dip) 1+ mg/dL (NEGATIVE); UR KETONES (Dip) NEGATIVE (NEGATIVE); UR LEUKOCYTE ESTERASE (Dip) NEGATIVE Leu/ul (NEGATIVE); UR NITRITE (Dip) NEGATIVE (NEGATIVE); UR RBC 1 /HPF (0-5); UR TOTAL PROTEIN (Dip) 1+ mg/dl (NEGATIVE); UR UROBILINOGEN (Dip) NEGATIVE (NEGATIVE)
[2016-12-25 19:17] VITALS: TEMP 98.5
[2016-12-25 20:45] VITALS: BP 167/78; RESP 18
[2016-12-25] MEDS ORDERED: INSULIN GLARGINE [LANtus] 3 ML PEN SC SCH (21:00)
[2016-12-25] MEDS ORDERED: ATORVASTATIN 10 MG TAB PO SCH (21:00)
[2016-12-25 22:00] VITALS: BP 123/61; PULSE 82; RESP 16
[2016-12-25] MEDS ORDERED: CLOP75TA27 PO (22:13)
[2016-12-25] MEDS ORDERED: SPIR25TA PO (22:13)
[2016-12-25] MEDS ORDERED: DEXTROSE 50% 50 ML SYRINGE IV PRN ×2 (22:15)
[2016-12-25] MEDS ORDERED: LISI10TA2 PO (22:15)
[2016-12-25] MEDS ORDERED: GLUCAGON 1 MG INJ IM PRN (22:15)
[2016-12-25] MEDS ORDERED: GLUCOSE GEL 15 GRAM TUBE BUCCAL PRN (22:15)
[2016-12-25] MEDS ORDERED: GLUCOSE GEL 15 GRAM TUBE PO PRN ×2 (22:15)
[2016-12-25] MEDS ORDERED: CARV25TA79 PO (22:16)
[2016-12-25] MEDS ORDERED: NA POLYST SULFON 15 GM/60 ML BTL PO ONE (23:30)
[2016-12-26] MEDS ORDERED: ACCU-CHEK XX SCH ×2 (02:00)
[2016-12-26 02:05] VITALS: BP 137/62; RESP 16
[2016-12-26] MEDS: SOD CHLORIDE 0.9% 1,000 ML IV SCH ×2 (02:16→15:00)
[2016-12-26] MEDS: HEPARIN 5,000 UNIT/0.5 ML VIAL SC SCH ×2 (06:37→13:34)
[2016-12-26 07:36] VITALS: BP 129/61; RESP 18
[2016-12-26] MEDS: INSULIN ASPART [NOVOLOG] 3 ML PEN SC SCH ×2 (08:02→12:33)
[2016-12-26 08:27] LABS: ADD SCAN DIFF NO
[2016-12-26 08:30] LABS: BASOPHILS % 0.5 % (0.0-2.0); EOSINOPHILS # 0.1 10^3/ul (0.0-0.5); EOSINOPHILS % 1.7 % (0.0-7.0); HEMATOCRIT 24.3 % (42.0-52.0); HEMOGLOBIN 7.8 g/dl (14.0-18.0); LYMPHOCYTES # 3.4 10^3/ul (0.8-2.9); LYMPHOCYTES % 51.8 % (15.0-51.0); MEAN CORPUSCULAR HEMOGLOBIN 29.2 pg (29.0-33.0); MEAN CORPUSCULAR HGB CONC 32.1 g/dl (32.0-37.0); MEAN PLATELET VOLUME 10.7 fl (7.4-10.4); MONOCYTE # 0.5 10^3/ul (0.3-0.9); NEUTROPHIL # 2.5 10^3/ul (1.6-7.5); NEUTROPHILS % 38.5 % (39.0-77.0); PLATELET COUNT 154 10^3/UL (140-415); RED BLOOD COUNT 2.67 10^6/ul (4.70-6.10); RED CELL DISTRIBUTION WIDTH 15.1 % (11.5-14.5); WHITE BLOOD COUNT 6.6 10^3/ul (4.8-10.8)
[2016-12-26] MEDS: ASPIRIN 81 MG TAB PO SCH (08:50)
[2016-12-26 08:51] LABS: IRON 44 ug/dl (35-150)
[2016-12-26] MEDS: NICOTINE (14 MG/24 HR) PATCH TRANSDERM SCH (08:51)
[2016-12-26 08:52] LABS: CREATININE 2.24 mg/dl (0.61-1.24); POTASSIUM 5.2 mmol/L (3.5-5.1)
[2016-12-26 08:53] LABS: ALBUMIN 3.7 g/dl (3.3-4.9); ALBUMIN/GLOBULIN RATIO 1.6
[2016-12-26] MEDS ORDERED: CLOPIDOGREL 75 MG TAB PO SCH (09:00)
[2016-12-26 09:01] LABS: TOTAL IRON BINDING CAPACITY 305 ug/dl (241-421)
--- NOTE | 2016-12-26 09:21 | CONS ---
Date/Time of Note Date/Time of Note DATE: 12/26/16 TIME: 08:44 Assessment/Plan Assessment/Plan Chief Complaint/Hosp Course #1 Acute on possible chronic kidney disease: Patient's outpatient restaurant assistant is Dr. Hodges, essentially normal in 2016, nonoliguric. FENa>1. minimal proteinuria. unclear baseline. #2 Right foot: Patient is having intermittent episodes of shooting pains in his right foot second digit and third digit. There are no lesions noted of the digits. There is poorly healing wound at the right medial malleolus which is nontender. At the current time the etiology of this pain appears to be neuropathy however patient has never had this sort of pain before. Initially we will get x-rays of the foot. podiatry for further evaluation. Consider starting Lyrica/gabapentin. Ultrasound was negative for any DVTs. #3 hyperkalemia: possibly related to janice. possibly typ IV RTA. fu ttkg. #4 diabetes mellitus: Check A1c. Continue home insulin dose. Insulin sliding scale #5 coronary artery disease: Continue home medications. #6 Normocytic anemia: Hemoglobin of 8. This likely secondary to patient's underlying chronic kidney disease. Continue to monitor hemoglobin. Blood transfusions if hemoglobin drops below 8 secondary to patient's cardiac history. Will defer to nephrology for Procrit/Epogen treatment. #7 back pain: Patient had mild tenderness to palpation of the left gluteal/ coccyx region. Lumbar imaging studies showed mild disc bulges but no acute subluxation. Continue to monitor. #8 DVT and GI prophylaxis: SCDs, Protonix Problems: Consultation Date/Type/Reason Admit Date/Time Date of Consultation: Dec 26, 2016 Type of Consultation: neph Hx of Present Illness This is a 66-year-old male presents here in emergency department for complaints of right foot pain on and off that radiates from her right lower back, sharp pain intermittent pain shooting pain 8/10 scale, not better or worse with anything. Patient is diabetic, does not take his gabapentin and Lyrica regularly. Patient also has history of peripheral neuropathy. Patient did exercises this morning, hit the coccyx of the back also. Patient does not have any incontinence. Patient does not have any fever or chills. Patient does not have hematuria or dysuria. Noted to have janice. baseline in 2016 was essentially normal. patient denies recent nsaid use. said he was taken off janumet. denies frequent uti or nephrolithiasis. Allergies: NKDA Medications: See AUG ROS Const: As per HPI Eyes : No pain discharge or redness or change in visual acuity ENT: No pain, sore throat, congestion, congestion, dysphagia or discharge Respiratory: No shortness of breath, cough, sputum, wheezing, or pleuritic pain Cardiovascular: No chest pain, palpitation, PND, or edema GI : no change in appetite, abdominal pain, nausea, vomiting, diarrhea, constipation, or change in the color his stool Genitourinary: No dysuria, hematuria, flank pain , discharge or CVA tenderness Musculoskeletal: As per HPI Skin: No rash, bruising or hives Neuro: No headache, dizziness, syncope, seizure, focal weakness Endocrine: No polyuria, polydipsia, temperature intolerance Psych: No hallucination, depression, anxiety or suicidal ideation PMH/Family/Social PMH/Family/Social Past Medical History Chronic kidney disease, diabetes mellitus, coronary artery disease, history of ID Past Surgical History Cardiac stents 2 Family History Significant Family History: hypertension Social History Smoking Status: Former smoker (Quit 8 months ago, [id number]-[id number] smoking history) Social History Smoking Status: Former smoker Exam/Review of Systems Vital Signs Vitals Vital Signs Date Time Temp Pulse Resp B/P Pulse Ox O2 Delivery O2 Flow Rate FiO2 12/26/16 07:36 98.8 82 18 129/61 98 12/25/16 22:00 Room Air 12/25/16 03:23 21 Intake and Output 12/25/16 12/25/16 12/26/16 15:00 23:00 07:00 Intake Total 1585 ml Balance 1585 ml Exam General: Patient is well-developed male lying in bed who has intermittent spurts of pain in his right lower extremity at the toes that come and go. HEENT: Atraumatic, normocephalic. The pupils are equal, round and reactive. Extraocular motor are intact Neck: Supple with full range of motion. No rigidity or meningismus Chest: Nontender Lungs: Clear to auscultation bilaterally no crackles rales or wheezing Heart: Normal S1-S2, Regular rhythm and rate. No murmur, S3, or S4 Abdomen: Soft , nontender, nondistended , bowel sounds are present. No guarding no rebound tenderness , No masses or organomegaly. No costovertebral temporal angle mass Extremities: Normal to inspection, no edema no cyanosis, no lesions of the right second and third digits of the right foot. He does have a small lesion at the medial malleolus which is nontender. Left gluteus/coccyx pain to palpation. Neurologic: Normal mental status, speech normal, cranial nerves II through XII are intact, motor and sensory are intact, no focal weakness Results Result Diagram: 12/26/16 0806 12/25/16 1455 Results 24 hrs Laboratory Tests Test 12/25/16 12:00 12/25/16 14:55 12/25/16 17:00 12/25/16 21:02 White Blood Count 7.1 Red Blood Count 3.02 L Hemoglobin 8.6 L Hematocrit 27.1 L Mean Corpuscular Volume 89.7 Mean Corpuscular Hemoglobin 28.5 L Mean Corpuscular Hemoglobin Concent 31.7 L Red Cell Distribution Width 15.1 H Platelet Count 160 # Mean Platelet Volume 10.0 Neutrophils % 35.6 L Lymphocytes % 55.8 H Monocytes % 6.3 Eosinophils % 1.3 Basophils % 0.6 Nucleated Red Blood Cells % 0.0 Neutrophils # 2.5 Lymphocytes # 4.0 H Monocytes # 0.5 Eosinophils # 0.1 Basophils # 0.0 Nucleated Red Blood Cells # 0.0 Hemoglobin A1c 8.0 H Magnesium Level 1.1 L Triglycerides Level 266 H Cholesterol Level 232 H LDL Cholesterol, Calculated 148 HDL Cholesterol 31 Cholesterol/HDL Ratio 7.4 Thyroid Stimulating Hormone (TSH) 10.800 H Sodium Level 143 Potassium Level 6.0 H Chloride Level 106 Carbon Dioxide Level 23 Anion Gap 20 #H Blood Urea Nitrogen 33 H Creatinine 2.35 H Glucose Level 165 Calcium Level 8.7 Free Thyroxine 1.21 Thyroxine (T4) 8.0 Urine Color STRAW Urine Clarity CLEAR Urine pH 5.0 Urine Specific [place] 1.010 Urine Ketones NEGATIVE Urine Nitrite NEGATIVE Urine Bilirubin NEGATIVE Urine Urobilinogen NEGATIVE Urine Leukocyte Esterase NEGATIVE Urine Microscopic RBC 1 Urine Microscopic WBC 1 Urine Hemoglobin NEGATIVE Urine Random Creatinine 68.41 Urine Random Sodium 114 H Urine Glucose 1+ H Urine Total Protein 1+ H Bedside Glucose 202 Test 12/25/16 22:39 12/26/16 08:00 12/26/16 08:06 Bedside Glucose 255 H 90 White Blood Count 6.6 Red Blood Count 2.67 L Hemoglobin 7.8 L Hematocrit 24.3 L Mean Corpuscular Volume 91.0 Mean Corpuscular Hemoglobin 29.2 Mean Corpuscular Hemoglobin Concent 32.1 Red Cell Distribution Width 15.1 H Platelet Count 154 Mean Platelet Volume 10.7 H Neutrophils % 38.5 L Lymphocytes % 51.8 H Monocytes % 7.0 Eosinophils % 1.7 Basophils % 0.5 Nucleated Red Blood Cells % 0.0 Neutrophils # 2.5 Lymphocytes # 3.4 H Monocytes # 0.5 Eosinophils # 0.1 Basophils # 0.0 Nucleated Red Blood Cells # 0.0 Medications Medications Current Medications Aspirin (Aspirin) 81 mg DAILY PO Last administered on 12/25/16 08:39; Admin Dose 81 MG; Start 12/25/16 at 09:00 Atorvastatin Calcium (Lipitor) 10 mg QHS PO Last administered on 12/25/16 22: 36; Admin Dose 10 MG; Start 12/25/16 at 21:00 Insulin Glargine (Lantus) 10 unit QHS SC Last administered on 12/25/16 22:50; Admin Dose 10 UNIT; Start 12/25/16 at 21:00 Nicotine (Nicoderm 14 Mg/ 24hr) 1 patch DAILY TRANSDERM ; Start 12/25/16 at 09: 00 Ondansetron HCl (Zofran Inj) 4 mg Q6H PRN IV NAUSEA AND/OR VOMITING Last administered on 12/25/16 13:50; Admin Dose 4 MG; Start 12/25/16 at 05:00 Acetaminophen (Tylenol Tab) 650 mg Q6H PRN PO PAIN LEVEL 1-3 OR FEVER; Start at 05:00 Docusate Sodium (Colace) 100 mg Q12H PRN PO CONSTIPATION; Start 12/25/16 at 05: 00 Bisacodyl (Dulcolax) 5 mg DAILY PRN PO CONSTIPATION; Start 12/25/16 at 05:00 Heparin Sodium (Porcine) 5000 unit 5,000 unit Q8 SC Last administered on 06:37; Admin Dose 5,000 UNIT; Start 12/25/16 at 06:00 Sodium Chloride (NS) 1,000 ml @ 125 mls/hr Q8H IV Last administered on 02:16; Admin Dose 125 MLS/HR; Start 12/25/16 at 15:00 Tramadol HCl (Ultram) 50 mg Q6H PRN PO pain; Start 12/25/16 at 16:00 Diagnostic Test (Pha) (Accu-Chek) 1 ea 02 XX ; Start 12/26/16 at 02:00 Miscellaneous Information 1 ea NOTE XX ; Start 12/25/16 at 22:15 Glucose (Glutose) 15 gm Q15M PRN PO DECREASED GLUCOSE; Start 12/25/16 at 22:15 Glucose (Glutose) 22.5 gm Q15M PRN PO DECREASED GLUCOSE; Start 12/25/16 at 22: 15 Dextrose (D50w Syringe) 25 ml Q15M PRN IV DECREASED GLUCOSE; Start 12/25/16 at 22:15 Dextrose (D50w Syringe) 50 ml Q15M PRN IV DECREASED GLUCOSE; Start 12/25/16 at 22:15 Glucagon (Glucagen) 1 mg Q15M PRN IM DECREASED GLUCOSE; Start 12/25/16 at 22:15 Glucose (Glutose) 15 gm Q15M PRN BUCCAL DECREASED GLUCOSE; Start 12/25/16 at 22 :15 Carvedilol (Coreg) 25 mg BID PO ; Start 12/25/16 at 23:30 Clopidogrel Bisulfate (plaVIX) 75 mg DAILY PO ; Start 12/26/16 at 09:00 PRISCILLA LU MD Dec 26, 2016 09:15
--- NOTE | 2016-12-26 11:39 | HP ---
Date/Time of Note Date/Time of Note DATE: 12/26/16 TIME: 11:24 Assessment/Plan VTE Prophylaxis VTE Prophylaxis Intervention: ambulation Lines/Catheters IV Catheter Type (from Nrs): Peripheral IV Urinary Cath still in place: No Assessment/Plan Chief Complaint/Hosp Course Right foot pain DM2 poorly controlled Diff dx symptomatic DN Diabetic ankle ulceration right Mild cellulitis Hyperkalemia Problems: Assessment/Plan H&P reviewed. Reviewed radiographs. No fracture/ dislocation. WBAT. Suspect pain from DN. Can check labs: HBA1c and vit B and as outpatient for NCV/EMG for baseline and f/u for DN. Discussed outpatient management glycemic control. Possible consultation with endo. Evaluation of wound. Topical antimicrobial rec. No specimen available for culture. Isolation not rec. Can f/u as outpt for wound management. Further disposition per primary team. HPI/ROS Admit Date/Time Admit Date/Time Hx of Present Illness Pain severe right foot. Admitted through ER for multiple medical issues. Hyperkalemia being managed. Pt with h/o DM2 inadequate control. Relates numbness to toes b/l feet. No trauma. Denies etoh, back pain, liver issues, or anemia. He is also has an ulceration to medial right ankle. ROS Skin: other (right medial ankle ulceration 3 x 3 mm. h/o of purulence. not currently presnt) PMH/Family/Social Past Medical History Medical History: deep vein thrombosis (negative venous doppler during this admission), diabetes Past Surgical History Past Surgical Hx: other (coronary stent) Social History Smoking Status: Former smoker Exam/Review of Systems Vital Signs Vitals Vital Signs Date Time Temp Pulse Resp B/P Pulse Ox O2 Delivery O2 Flow Rate FiO2 12/26/16 07:36 98.8 82 18 129/61 98 12/25/16 22:00 Room Air 12/25/16 03:23 21 Intake and Output 12/25/16 12/25/16 12/26/16 15:00 23:00 07:00 Intake Total 1585 ml Balance 1585 ml Exam Cardiovascular: nl pulses (no cyanois/ clubbing/ feet warm/ pedal hair present / ) Gastrointestinal: soft Musculoskeletal: other (5/5 DF/ PF bilateral ankle. Radiographs right foot - no fracture/ dislocation) Neurological: nl mental status, other (neg tinels tibial/ superficial peroneal nerve distribution b/l feet. decreased protective sensation. ) Skin: other (mild erythema to periwound right medial ankle, no ascending cellulitis or lymphagitis) Labs Result Diagram: 12/26/1680512/26/16 08 Medications Medications Current Medications Aspirin (Aspirin) 81 mg DAILY PO Last administered on 12/26/16 08:50; Admin Dose 81 MG; Start 12/25/16 at 09:00 Atorvastatin Calcium (Lipitor) 10 mg QHS PO Last administered on 12/25/16 22: 36; Admin Dose 10 MG; Start 12/25/16 at 21:00 Insulin Glargine (Lantus) 10 unit QHS SC Last administered on 12/25/16 22:50; Admin Dose 10 UNIT; Start 12/25/16 at 21:00 Nicotine (Nicoderm 14 Mg/ 24hr) 1 patch DAILY TRANSDERM ; Start 12/25/16 at 09: 00 Ondansetron HCl (Zofran Inj) 4 mg Q6H PRN IV NAUSEA AND/OR VOMITING Last administered on 12/25/16 13:50; Admin Dose 4 MG; Start 12/25/16 at 05:00 Acetaminophen (Tylenol Tab) 650 mg Q6H PRN PO PAIN LEVEL 1-3 OR FEVER; Start at 05:00 Docusate Sodium (Colace) 100 mg Q12H PRN PO CONSTIPATION; Start 12/25/16 at 05: 00 Bisacodyl (Dulcolax) 5 mg DAILY PRN PO CONSTIPATION; Start 12/25/16 at 05:00 Heparin Sodium (Porcine) 5000 unit 5,000 unit Q8 SC Last administered on 06:37; Admin Dose 5,000 UNIT; Start 12/25/16 at 06:00 Sodium Chloride (NS) 1,000 ml @ 125 mls/hr Q8H IV Last administered on 02:16; Admin Dose 125 MLS/HR; Start 12/25/16 at 15:00 Tramadol HCl (Ultram) 50 mg Q6H PRN PO pain; Start 12/25/16 at 16:00 Diagnostic Test (Pha) (Accu-Chek) 1 ea 02 XX ; Start 12/26/16 at 02:00 Miscellaneous Information 1 ea NOTE XX ; Start 12/25/16 at 22:15 Glucose (Glutose) 15 gm Q15M PRN PO DECREASED GLUCOSE; Start 12/25/16 at 22:15 Glucose (Glutose) 22.5 gm Q15M PRN PO DECREASED GLUCOSE; Start 12/25/16 at 22: 15 Dextrose (D50w Syringe) 25 ml Q15M PRN IV DECREASED GLUCOSE; Start 12/25/16 at 22:15 Dextrose (D50w Syringe) 50 ml Q15M PRN IV DECREASED GLUCOSE; Start 12/25/16 at 22:15 Glucagon (Glucagen) 1 mg Q15M PRN IM DECREASED GLUCOSE; Start 12/25/16 at 22:15 Glucose (Glutose) 15 gm Q15M PRN BUCCAL DECREASED GLUCOSE; Start 12/25/16 at 22 :15 Carvedilol (Coreg) 25 mg BID PO ; Start 12/25/16 at 23:30 Clopidogrel Bisulfate (plaVIX) 75 mg DAILY PO Last administered on 12/26/16t 08 :50; Admin Dose 75 MG; Start 12/26/16 at 09:00 Mupirocin (Bactroban) 1 applic BID TOP ; Start 12/26/16 at 21:00; Status TENZIN DAVIDSON DPM Dec 26, 2016 11:38
[2016-12-26] MEDS ORDERED: VITAMIN B COMPLEX/VIT C CAP PO SCH (13:00)
--- NOTE | 2016-12-26 14:21 | PN ---
Date/Time of Note Date/Time of Note DATE: 12/26/16 TIME: 14:20 Assessment/Plan VTE Prophylaxis VTE Prophylaxis Intervention: SCD's Lines/Catheters IV Catheter Type (from Nrsg): Peripheral IV Urinary Cath still in place: No Assessment/Plan Assessment/Plan 66 yo M with pmhx HTN, DM, initially presented for R foot pain also incidentally found to have PHIL on CKD, hyperkalemia and anemia. #R foot pain: imaging without evidence of fracture.likely neuropathy per podiatry -start neurontin -will ref to neuro at discharge for EMG/NCS #PHIL: etio unclear. Also unclear how much is CKD check Fe Urea given lasix use YESIKA without obstruction IVFs holding home lasix #hyperkalemia: suspect 2/2 PHIL; sign improved IVFs, low K diet consider lasix if Cr improves #anemia: etio and time course unclear. GI source v CKD v other FOBT iron studies without BELTRAN #subclinical hypothyroid: TSH elevated, free/total t4 wnl, f/u with PCP #DM2: SSI and basal/bolus #tobacco abuse: NRT FEN: low K diet, mIVFs, DVT prophx Subjective 24 Hr Interval Summary Free Text/Dictation Pt seen by podiatry this AM and nephrology. Foot pain unchanged Exam/Review of Systems Vital Signs Vitals Vital Signs Date Time Temp Pulse Resp B/P Pulse Ox O2 Delivery O2 Flow Rate FiO2 12/26/16 07:36 98.8 82 18 129/61 98 12/25/16 22:00 Room Air 12/25/16 03:23 21 Intake and Output 12/25/16 12/25/16 12/26/16 15:00 23:00 07:00 Intake Total 1585 ml Balance 1585 ml Exam nad, sitting up in bed no mrg lungs clear abd soft no rashes a1c 8.1 hgb 7s, Cr without sig change Results Result Diagram: 12/26/16 0806 12/26/16 0806 Results 24 hrs Laboratory Tests Test 12/25/16 14:55 12/25/16 17:00 12/25/16 21:02 12/25/16 22:39 Sodium Level 143 Potassium Level 6.0 H Chloride Level 106 Carbon Dioxide Level 23 Anion Gap 20 #H Blood Urea Nitrogen 33 H Creatinine 2.35 H Glucose Level 165 Calcium Level 8.7 Free Thyroxine 1.21 Thyroxine (T4) 8.0 Urine Color STRAW Urine Clarity CLEAR Urine pH 5.0 Urine Specific [place] 1.010 Urine Ketones NEGATIVE Urine Nitrite NEGATIVE Urine Bilirubin NEGATIVE Urine Urobilinogen NEGATIVE Urine Leukocyte Esterase NEGATIVE Urine Microscopic RBC 1 Urine Microscopic WBC 1 Urine Hemoglobin NEGATIVE Urine Random Creatinine 68.41 Urine Random Sodium 114 H Urine Glucose 1+ H Urine Total Protein 1+ H Bedside Glucose 202 255 H Test 12/26/16 08:00 12/26/16 08:06 12/26/16 11:59 Bedside Glucose 90 147 Hemoglobin A1c 8.1 H White Blood Count 6.6 Red Blood Count 2.67 L Hemoglobin 7.8 L Hematocrit 24.3 L Mean Corpuscular Volume 91.0 Mean Corpuscular Hemoglobin 29.2 Mean Corpuscular Hemoglobin Concent 32.1 Red Cell Distribution Width 15.1 H Platelet Count 154 Mean Platelet Volume 10.7 H Neutrophils % 38.5 L Lymphocytes % 51.8 H Monocytes % 7.0 Eosinophils % 1.7 Basophils % 0.5 Nucleated Red Blood Cells % 0.0 Neutrophils # 2.5 Lymphocytes # 3.4 H Monocytes # 0.5 Eosinophils # 0.1 Basophils # 0.0 Nucleated Red Blood Cells # 0.0 Sodium Level 147 H Potassium Level 5.2 H Chloride Level 109 Carbon Dioxide Level 23 Anion Gap 20 H Blood Urea Nitrogen 26 H Creatinine 2.24 H Glucose Level 83 # Calcium Level 8.0 L Iron Level 44 Total Iron Binding Capacity 305 Percent Iron Saturation 14 L Total Bilirubin 0.0 L Direct Bilirubin 0.00 Indirect Bilirubin 0.0 Aspartate Amino Transf (AST/SGOT) 21 Alanine Aminotransferase (ALT/SGPT) 30 Alkaline Phosphatase 72 Total Protein 6.0 L Albumin 3.7 Globulin 2.30 Albumin/Globulin Ratio 1.60 Medications Medications Current Medications Aspirin (Aspirin) 81 mg DAILY PO Last administered on 12/26/16 08:50; Admin Dose 81 MG; Start 12/25/16 at 09:00 Atorvastatin Calcium (Lipitor) 10 mg QHS PO Last administered on 12/25/16 22: 36; Admin Dose 10 MG; Start 12/25/16 at 21:00 Insulin Glargine (Lantus) 10 unit QHS SC Last administered on 12/25/16 22:50; Admin Dose 10 UNIT; Start 12/25/16 at 21:00 Nicotine (Nicoderm 14 Mg/ 24hr) 1 patch DAILY TRANSDERM ; Start 12/25/16 at 09: 00 Ondansetron HCl (Zofran Inj) 4 mg Q6H PRN IV NAUSEA AND/OR VOMITING Last administered on 12/25/16 13:50; Admin Dose 4 MG; Start 12/25/16 at 05:00 Acetaminophen (Tylenol Tab) 650 mg Q6H PRN PO PAIN LEVEL 1-3 OR FEVER; Start at 05:00 Docusate Sodium (Colace) 100 mg Q12H PRN PO CONSTIPATION; Start 12/25/16 at 05: 00 Bisacodyl (Dulcolax) 5 mg DAILY PRN PO CONSTIPATION; Start 12/25/16 at 05:00 Heparin Sodium (Porcine) 5000 unit 5,000 unit Q8 SC Last administered on 13:34; Admin Dose 5,000 UNIT; Start 12/25/16 at 06:00 Sodium Chloride (NS) 1,000 ml @ 125 mls/hr Q8H IV Last administered on 02:16; Admin Dose 125 MLS/HR; Start 12/25/16 at 15:00 Tramadol HCl (Ultram) 50 mg Q6H PRN PO pain; Start 12/25/16 at 16:00 Diagnostic Test (Pha) (Accu-Chek) 1 ea 02 XX ; Start 12/26/16 at 02:00 Miscellaneous Information 1 ea NOTE XX ; Start 12/25/16 at 22:15 Glucose (Glutose) 15 gm Q15M PRN PO DECREASED GLUCOSE; Start 12/25/16 at 22:15 Glucose (Glutose) 22.5 gm Q15M PRN PO DECREASED GLUCOSE; Start 12/25/16 at 22: 15 Dextrose (D50w Syringe) 25 ml Q15M PRN IV DECREASED GLUCOSE; Start 12/25/16 at 22:15 Dextrose (D50w Syringe) 50 ml Q15M PRN IV DECREASED GLUCOSE; Start 12/25/16 at 22:15 Glucagon (Glucagen) 1 mg Q15M PRN IM DECREASED GLUCOSE; Start 12/25/16 at 22:15 Glucose (Glutose) 15 gm Q15M PRN BUCCAL DECREASED GLUCOSE; Start 12/25/16 at 22 :15 Carvedilol (Coreg) 25 mg BID PO ; Start 12/25/16 at 23:30 Clopidogrel Bisulfate (plaVIX) 75 mg DAILY PO Last administered on 12/26/16 08 :50; Admin Dose 75 MG; Start 12/26/16 at 09:00 Mupirocin (Bactroban) 1 applic BID TOP ; Start 12/26/16 at 21:00 Vitamin B Complex/ Vitamin C (Berocca) 1 cap DAILY PO Last administered on 12/26 13:29; Admin Dose 1 CAP; Start 12/26/16 at 13:00 FERNANDEZ GIANG MD Dec 26, 2016 14:21
[2016-12-26 15:07] VITALS: BP 146/73; RESP 18
[2016-12-26] MEDS ORDERED: GABA100C14 PO (16:20)
[2016-12-26] MEDS ORDERED: MUPIROCIN 2% 15 GM CR TOP SCH (17:00)
[2016-12-26] MEDS ORDERED: GABAPENTIN 100 MG CAP PO SCH (21:00)
--- NOTE | 2016-12-27 08:48 | DS ---
Date/Time of Note Date/Time of Note DATE: 12/27/16 TIME: 08:48 Discharge Summary Admission/Discharge Info Admit Date/Time Dec 25, 2016 at 03:14 Discharge Date/Time Dec 26, 2016 at 17:05 Patient Condition: Stable Consults nephrology, podiatry Procedures R foot XR 7.14: no fracture YESIKA 7.14: no obstruction a1c 8.1 Hx of Present Illness Pain severe right foot. Admitted through ER for multiple medical issues. Hyperkalemia being managed. Pt with h/o DM2 inadequate control. Relates numbness to toes b/l feet. No trauma. Denies etoh, back pain, liver issues, or anemia. He is also has an ulceration to medial right ankle. Hospital Course Regarding elevated Cr, pt seen by nephrology service, thought to more likely represent CKD than PHIL. Regardless, lasix held. For foot pain, pt seen by podiatry. Thought to be diabetic neuropathy. Neurontin started and outpatient EMG/NCS testing was advised. For anemia, iron studies without BELTRAN. Suspect 2/2 CKD. FOBT was ordered but not completed at time of discharge. During bedside rounds, I advised that though anemia likely not 2/2 GI blood loss would be prudent to check FOBT in the hospital. Pt agreed. Later in the evening, however, pt requested discharge from the hospital. I personally faxed a copy of this discharge summary to patient's PCP Home Meds Active Scripts Gabapentin* (Gabapentin*) 100 Mg Capsule, 100 MG PO QHS, #90 CAP 1 Refill Prov:RIAZ MENARDTRUDI Correa 12/26/16 Atorvastatin Calcium (Atorvastatin Calcium) 10 Mg Tablet, 10 MG PO QHS, #30 TAB Prov:EBONY LEBRON MD 04/01/16 Insulin Glargine* (Lantus*) 100 Unit/Ml Soln, 10 UNIT SC QHS for 90 Days Prov:WILNER CANSECO MD 04/01/16 Sitagliptin Phos/Metformin HCl (Janumet 50-1,000 mg Tablet) 1 Each Tablet, 1 EACH PO BID, #60 TAB Prov:EBONY LEBRON MD 04/01/16 Nitroglycerin* (Nitrostat*) 0.4 Mg Tab.subl, 1 TAB SL Q5M Y for CHEST PAIN, #30 Prov:EBONY LEBRON MD 04/01/16 [Nicotine (14 Mg/24 Hr)] 1 PATCH PATCH No Conflict Check, 1 PATCH TRANSDERM DAILY, #30 Prov:EBONY LEBRON MD 04/01/16 Aspirin (Aspirin) 81 Mg Chew, 81 MG PO DAILY, #30 TAB 1 Refill Prov:EBONY LEBRON MD 04/01/16 Reported Medications Carvedilol* (Carvedilol*) 25 Mg Tablet, 25 MG PO BID, #60 TAB 12/25/16 Lisinopril* (Lisinopril*) 10 Mg Tablet, 10 MG PO DAILY, #30 TAB 12/25/16 Spironolactone* (Aldactone*) 25 Mg Tablet, 25 MG PO DAILY, #30 TAB 12/25/16 Clopidogrel Bisulfate (Clopidogrel) 75 Mg Tablet, 75 MG PO DAILY, #30 TAB 12/25/16 Discontinued Scripts Carvedilol* (Carvedilol*) 6.25 Mg Tablet, 6.25 MG PO BID, #60 TAB Prov:EBONY LEBRON MD 04/01/16 Follow-up Plan PCP to refer to neuro or PMR for EMG/NCS PCP to repeat CBC to eval hgb, consider GI referral Pt to f/u with nephrology for further CKD management Pt to f/u with podiatry for diabetic foot pain Pt to f/u with PCP regarding DM management Primary Care Provider Sandro Hernandez Time spent on discharge: > 30 minutes Pending Labs Laboratory Tests Test 12/26/16 11:59 12/26/16 14:30 Bedside Glucose 147mg/dL (70-220) Stool Occult Blood NEGATIVE (NEGATIVE) FERNANDEZ GIANG MD Dec 27, 2016 08:48
[2016-12-27] MEDS ORDERED: VITA1TAB83 PO (14:47)
[2016-12-27] MEDS ORDERED: MUPI22OI2 TOP (14:47)
[2016-12-27] MEDS ORDERED: GABA100C14 PO (14:48)
== END 2016-12-26 17:05 | disposition home or self-care (01) | DRG 556 ==
LOC: FTE 01:03 → MS2 03:14
PROVIDERS: ADMIT Family Medicine; ATTEND Family Medicine
DX: M79.671 Pain in right foot (principal); N17.9 Acute kidney failure, unspecified; E11.42 Type 2 diabetes mellitus with diabetic polyneuropathy; D69.6 Thrombocytopenia, unspecified; L97.319 Non-pressure chronic ulcer of right ankle with unspecified severity; L03.115 Cellulitis of right lower limb; E87.5 Hyperkalemia; M54.5 Low back pain; M79.604 Pain in right leg; I10 Essential (primary) hypertension; Z79.82 Long term (current) use of aspirin; Z95.5 Presence of coronary angioplasty implant and graft; D64.9 Anemia, unspecified; I12.9 Hypertensive chronic kidney disease with stage 1 through stage 4 chronic kidney disease, or unspecified chronic kidney disease; N18.9 Chronic kidney disease, unspecified; D63.1 Anemia in chronic kidney disease; Z91.14 Patient's other noncompliance with medication regimen; Z87.891 Personal history of nicotine dependence; E02 Subclinical iodine-deficiency hypothyroidism
CPT/HCPCS: 72131; 73630; 76775; 80048; 80053; 80061; 81001; 82270; 82962; 83036; 83540; 83735; 84155; 84300; 84436; 84439; 84443; 85025; 93005; 93971; 94664; 96372; 96374; 96375; 96376; C9113; J1170; J1644; J1815; J2270; J2405; J3475; J7030

== ENCOUNTER 2018-02-27 11:16 | Emergency (ER) | END 2018-02-27 12:07 | disposition home or self-care (01) ==

== ENCOUNTER 2018-02-28 11:26 | Emergency (ER) | END 2018-02-28 13:46 | disposition home or self-care (01) ==

== ENCOUNTER 2019-01-05 21:45 | Inpatient (IN) | payer MEDICARE, OTHER ==
[~2019-01-05] VITALS: Ht 170.2 cm; Wt 82.5 kg
[~2019-01-05 21:45] MED LIST changes: +AMLO-145 PO; +ASPI-831 PO; -ASPI81TA3 PO; +CARV25TA79 PO; -CARV6.2579 PO; +CEPH-443 PO; +CETI10TA34 PO; +CLON-379 PO; +CLOP75TA27 PO; +FERR325T5 PO; +FURO40TA4 PO; +GABA100C14 PO; +GUAI-637 PO; -LAS20 PO; +LEVO750T25 PO; +LISI10TA2 PO; +MONT5TAB16 PO; +MUPI22OI2 TOP; -NIT4 SL; +NITR0.4T39 SL; +SPIR25TA PO; +SULF1TAB31 PO; +VITA1TAB83 PO
[2019-01-05 21:47] VITALS: Ht 170.2 cm; Wt 82.5 kg
[2019-01-05] MEDS ORDERED: AZITHROMYCIN 500MG/NS (PMX) 250 ML IV STA (22:12)
[2019-01-05] MEDS ORDERED: SODIUM CHLORIDE 0.9% 1L BAG IV* STA (22:12)
[2019-01-05] MEDS ORDERED: CEFTRIAXONE 1 GM/50 ML (PMX) 50 ML IVPB STA (22:12)
[2019-01-05] MEDS ORDERED: ACETAMINOPHEN 325 MG TAB PO STA (22:12)
--- NOTE | 2019-01-05 23:08 | ERD ---
ER Documentation Chief Complaint Chief Complaint SOB, COUGH, WITH FEVER ; CWP DUE TO COUGH HPI 68-year-old male with a history of hypertension, CHF, CKD presenting with a fever since yesterday with associated cough. He states that he has a chronic cough but it has worsened since yesterday. He feels very tired and slightly short of breath. He has some pressure in his chest but no specific chest pain. + sick contacts. No vomiting or diarrhea. ROS All systems reviewed and are negative except as per history of present illness. Medications Home Meds Active Scripts Sulfamethoxazole/Trimethoprim* (Bactrim Ds* Tablet) 1 Each Tablet, 1 TAB PO BID, #20 TAB Prov:LAMBERT MARIANO PA-C 02/27/18 Cephalexin* (Keflex*) 500 Mg Capsule, 500 MG PO QID for 10 Days, CAP Prov:LAMBERT MARIANO PA-C 02/27/18 Gabapentin* (Gabapentin*) 100 Mg Capsule, 200 MG PO QHS, #30 CAP 0 Refills Prov:FERNANDEZ GIANG MD 12/27/16 Mupirocin* (Bactroban*) 2% -22 Gram Oint...g., 1 APPLIC TOP TID for 30 Days, #1 TUB SITE OF APPLICATION: Prov:FERNANDEZ GIANG MD 12/27/16 Vitamin B Complex (B Complex # 1) 1 Each Tablet, 1 EACH PO DAILY for 30 Days, #30 TAB 3 Refills Prov:FERNANDEZ GIANG MD 12/27/16 Atorvastatin Calcium (Atorvastatin Calcium) 10 Mg Tablet, 10 MG PO QHS, #30 TAB Prov:EBONY LEBRON MD 04/01/16 Insulin Glargine* (Lantus*) 100 Unit/Ml Soln, 10 UNIT SC QHS for 90 Days Prov:WILNER CANSECO MD 04/01/16 Sitagliptin Phos/Metformin HCl (Janumet 50-1,000 mg Tablet) 1 Each Tablet, 1 EACH PO BID, #60 TAB Prov:EBONY LEBRON MD 04/01/16 Nitroglycerin* (Nitrostat*) 0.4 Mg Tab.subl, 1 TAB SL Q5M PRN for CHEST PAIN, #30 Prov:EBONY LEBRON MD 04/01/16 [Nicotine (14 Mg/24 Hr)] 1 PATCH PATCH No Conflict Check, 1 PATCH TRANSDERM DAILY, #30 Prov:EBONY LEBRNO MD 04/01/16 Aspirin (Aspirin) 81 Mg Chew, 81 MG PO DAILY, #30 TAB 1 Refill Prov:EBONY LEBRON MD 04/01/16 Reported Medications Carvedilol* (Carvedilol*) 25 Mg Tablet, 25 MG PO BID, #60 TAB 12/25/16 Lisinopril* (Lisinopril*) 10 Mg Tablet, 10 MG PO DAILY, #30 TAB 12/25/16 Spironolactone* (Aldactone*) 25 Mg Tablet, 25 MG PO DAILY, #30 TAB 12/25/16 Clopidogrel Bisulfate (Clopidogrel) 75 Mg Tablet, 75 MG PO DAILY, #30 TAB 12/25/16 Allergies Allergies: Coded Allergies: No Known Allergy (Unverified , 03/31/16) PMhx/Soc History of Surgery: Yes (2014, angioplasty with 3 stents) Anesthesia Reaction: No Hx Neurological Disorder: No Hx Respiratory Disorders: No Hx Cardiac Disorders: Yes (CAD) Hx Psychiatric Problems: No Hx Miscellaneous Medical Probl: Yes (HTN, DM) Hx Alcohol Use: No Hx Substance Use: No Hx Tobacco Use: No Smoking Status: Never smoker FmHx Family History: No diabetes Physical Exam Vitals Vital Signs Date Temp Pulse Resp B/P (MAP) Pulse Ox O2 O2 Flow FiO2 Time Delivery Rate 01/06/19 98.3 88 16 130/66 98 Nasal 2.0 01:25 (87) Cannula 01/05/19 102.2 107 19 170/74 97 21:47 (106) Physical Exam Const: No acute distress, nontoxic Head: Atraumatic Eyes: Normal Conjunctiva ENT: Normal External Ears, Nose and Mouth. Neck: Full range of motion. No meningismus. Resp: Mild expiratory wheezing with crackles in the left lung base. Cardio: tachycardic with regular rhythm, no murmurs Abd: Soft, non tender, non distended. Normal bowel sounds Skin: No petechiae or rashes Back: No midline or flank tenderness Ext: No cyanosis, or edema Neur: Awake and alert Psych: Normal Mood and Affect Result Diagram: 7/25/19 2200 7/25/19 2200 Results 24 hrs Laboratory Tests Test 01/05/19 22:00 01/05/19 22:08 01/06/19 00:37 White Blood Count 15.7 10^3/ul Red Blood Count 3.68 10^6/ul Hemoglobin 10.4 g/dl Hematocrit 32.4 % Mean Corpuscular Volume 88.0 fl Mean Corpuscular Hemoglobin 28.3 pg Mean Corpuscular 32.1 g/dl Hemoglobin Concent Red Cell Distribution Width 13.3 % Platelet Count 148 10^3/UL Mean Platelet Volume 10.4 fl Immature Granulocytes % 0.300 % Neutrophils % 54.2 % Lymphocytes % 39.2 % Monocytes % 5.7 % Eosinophils % 0.3 % Basophils % 0.3 % Nucleated Red Blood Cells % 0.0 /100WBC Immature Granulocytes # 0.050 10^3/ul Neutrophils # 8.5 10^3/ul Lymphocytes # 6.2 10^3/ul Monocytes # 0.9 10^3/ul Eosinophils # 0.1 10^3/ul Basophils # 0.1 10^3/ul Nucleated Red Blood Cells # 0.0 10^3/ul Prothrombin Time 14.2 Sec Prothrombin Time Ratio 1.1 INR International 1.09 Normalized Ratio Activated Partial Thromboplast 41.1 Sec Time Urine Color YELLOW Urine Clarity CLEAR Urine pH 6.0 Urine Specific Mcloud 1.015 Urine Ketones NEGATIVE mg/dL Urine Nitrite NEGATIVE mg/dL Urine Bilirubin NEGATIVE mg/dL Urine Urobilinogen NEGATIVE mg/dL Urine Leukocyte Esterase NEGATIVE Rosalia/ul Urine Microscopic RBC 18 /HPF Urine Microscopic WBC 1 /HPF Urine Bacteria FEW /HPF Urine Mucus FEW /HPF Urine Hemoglobin 2+ mg/dL Urine Glucose 3+ mg/dL Urine Total Protein 3+ mg/dl Sodium Level 138 mmol/L Potassium Level 5.5 mmol/L Chloride Level 105 mmol/L Carbon Dioxide Level 24 mmol/L Anion Gap 9 Blood Urea Nitrogen 51 mg/dl Creatinine 3.57 mg/dl Est Glomerular Filtrat 17 mL/min Rate mL/min Glucose Level 280 mg/dl Calcium Level 8.5 mg/dl Total Bilirubin 0.5 mg/dl Direct Bilirubin 0.00 mg/dl Indirect Bilirubin 0.5 mg/dl Aspartate Amino Transf (AST/SGOT) 43 IU/L Alanine 28 IU/L Aminotransferase (ALT/SGPT) Alkaline Phosphatase 85 IU/L Troponin I 0.094 ng/ml Total Protein 7.5 g/dl Albumin 3.8 g/dl Globulin 3.70 g/dl Albumin/Globulin Ratio 1.02 POC Venous Lactate 1.6 mmol/L Lactic Acid Level 1.4 mmol/L Current Medications Medications Dose Sig/Taylor Start Time Status Last (Trade) Ordered Route PRN Stop Time Admin Dose Reason Admin Sodium 2,380 ml BOLUS OVER 2 01/05/19 DC 01/05/19 Chloride HOURS STAT 22:12 22:20 (NS) IV* 01/05/19 22:13 650 mg ONCE STAT 01/05/19 DC 01/05/19 Acetaminophen PO 22:12 22:20 (Tylenol 01/05/19 22:14 Tab) Ceftriaxone 50 ml @ ONCE STAT 01/05/19 DC 01/05/19 Sodium 100 mls/hr IVPB 22:12 22:19 01/05/19 22:41 Azithromycin 250 ml @ ONCE STAT 01/05/19 DC 01/05/19 250 mls/hr IV 22:12 23:17 01/05/19 23:11 Ondansetron 4 mg BRIDGE ORDER 01/06/19 HCl (Zofran PRN IV 00:30 Inj) NAUSEA/VOMITI 01/07/19 00:29 NG 650 mg ER BRIDGE 01/06/19 Acetaminophen PRN PO 00:30 (Tylenol .MILD PAIN 01/07/19 00:29 Tab) 1-3 OR TEMP Sodium 15 gm ONCE ONCE 01/06/19 DC Polystyrene PO 00:30 Sulfonate 01/06/19 00:32 (Kayexalate) Azithromycin 250 ml @ Q24H IVPB 01/06/19 DC 250 mls/hr 23:00 01/06/19 23:00 Ceftriaxone 50 ml @ Q24H IVPB 01/06/19 DC Sodium 100 mls/hr 23:00 01/06/19 23:00 Aspirin 81 mg DAILY PO 01/06/19 UNV (Aspirin) 09:00 10 mg QHS PO 01/06/19 UNV Atorvastatin 21:00 Calcium (Lipitor) Carvedilol 25 mg BID PO 01/06/19 UNV (Coreg) 09:00 Clopidogrel 75 mg DAILY PO 01/06/19 UNV Bisulfate 09:00 (plaVIX) Gabapentin 200 mg QHS PO 01/06/19 UNV (Neurontin) 21:00 Insulin 10 units QHS SC 01/06/19 UNV Glargine 21:00 (Lantus) 1 patch DAILY 01/06/19 UNV Miscellaneous TRANSDERM 09:00 Information IV Flush 3 ml PER 01/06/19 UNV (NS 3 ml) PROTOCOL IV 03:00 Ondansetron 4 mg Q6H PRN 01/06/19 UNV HCl (Zofran IV 03:00 Inj) NAUSEA/VOMITI NG 650 mg Q6H PRN 01/06/19 UNV Acetaminophen PO .PAIN 1-3 03:00 (Tylenol OR TEMP Tab) Docusate 100 mg Q12H PRN 01/06/19 UNV Sodium PO 03:00 (Colace) .CONSTIPATION Bisacodyl 5 mg DAILY PRN 01/06/19 UNV (Dulcolax) PO 03:00 .CONSTIPATION Heparin 5,000 unit Q8 SC 01/06/19 UNV Sodium 06:00 (Porcine) (Heparin (5000 Units/1ml)) Procedures/MDM EMERGENT LABS AND DIAGNOSTIC STUDIES: Lab Results above were reviewed and interpreted by me. CBC: Leukocytosis, concerning for infection. Mild anemia CMP: Elevated BUN and creatinine, consistent with chronic kidney disease. Mild borderline hyperkalemia at 5.5. Hyperglycemic without evidence of acidosis. Troponin within normal limits, not indicative of cardiac ischemia Lactate within normal limits without evidence of sepsis or tissue hypoperfusion UA: no evidence of infection 12-lead EKG was interpreted by Bebo Almaraz MD: Normal Sinus Rhythm with ventricular rate of 97 beats per minute Inferior and anterior Q waves, consistent with old infarct No acute ST or T wave changes suggestive of acute ischemia or STEMI. Radiology Results as interpreted by Radiology below were reviewed by Korey Almaraz MD: Chest x-ray shows left-sided pneumonia Initial Nursing notes reviewed. Previous Medical Records requested via the Electronic Health Record. EMERGENCY DEPARTMENT COURSE / MEDICAL DECISION MAKING: Admit MDM: Patient's infectious symptoms have not stabilized, and the patient is at risk of rapid decompensation. The patient will be admitted for careful hydration, antibiotic therapy, and infectious source control. Severe Sepsis criteria: Infectious source: Pneumonia End organ damage indicated by: Track Car Operator > 2.0 Sepsis Management: Time of recognition of severe sepsis: 2200 Within 3 hours of recognition: Blood cultures x 2 before broad-spectrum antibiotics: Yes 30 ml/kg NS bolus -not done as patient has no signs of severe sepsis or septic shock and it has congestive heart failure with low ejection fraction Initial lactate normal Repeat lactate Not indicated as initial lactate < 2.0 Septic Shock Assessment: Any lactic acid > 4.0 No Persistent hypotension (SBP < 90 or 40 mmHg drop, MAP < 65) despite 30 mL/kg IV fluid bolusNo Accepting Care Team Current data and ongoing care discussed. Admitting Physician: Dr. Kilgore Cement Mason(s): Dr. Mirna Hodges is patient service associate. Notified but did not receive call back. Outstanding Data: cultures Critical Care Time: 35 minutes Treatments/Evaluations: Close monitoring and treatment of unstable vital signs, cardiorespiratory, and neurologic status, while maintaining tight balance of fluid, respiratory, and cardiac interventions. This includes the administration of emergency fluid management while maintaining close respiratory support as well as the provision of immediate and broad-spectrum antibiotic therapy, while performing a simultaneous assessment for possible sources in order to direct targeted therapy. This time includes discussing the case with the patient and the patients family.This time also includes the consideration for invasive and chemical support to prevent cardiopulmonary collapse. This time does not include all procedures stated elsewhere in this record. This time also includes reviewing old records, labs and radiological studies. This time includes examining and reexamining the patient. Additionally, this time also includes arranging care with admitting and consulting physicians. Departure Diagnosis: Primary Impression: Sepsis Sepsis type: sepsis due to unspecified organism Qualified Codes: A41.9 - Sepsis, unspecified organism Additional Impressions: Pneumonia Pneumonia type: due to unspecified organism Laterality: left Lung location: lower lobe of lung Qualified Codes: J18.1 - Lobar pneumonia, unspecified organism CKD (chronic kidney disease) Chronic kidney disease stage: unspecified stage Qualified Codes: N18.9 - Chronic kidney disease, unspecified Condition: JOSH Bocanegra MD Jan 05, 2019 23:08
[2019-01-06] MEDS ORDERED: ACETAMINOPHEN 325 MG TAB PO PRN ×2 (00:30→03:00)
[2019-01-06] MEDS ORDERED: NA POLYST SULFON 15 GM/60 ML BTL PO ONE (00:30)
[2019-01-06] MEDS ORDERED: ONDANSETRON 4 MG INJ IV PRN ×2 (00:30→03:00)
--- NOTE | 2019-01-06 00:30 | HP ---
Date/Time of Note Date/Time of Note DATE: 01/06/19 TIME: 00:28 Assessment/Plan VTE Prophylaxis Pharmacological prophylaxis: NA/contraindicated, heparin Pharm contraindication: low risk/ambulating Lines/Catheters IV Catheter [facility] (from [facility]): Saline Lock Assessment/Plan Hospital Course This is a 68-year-old male being admitted to the [facility] floor for: #1 Sepsis: Secondary to underlying Community acquired pneumonia, possible diarrhea. Patient was given ceftriaxone and azithromycin in the emergency department I will switch the patient to Zosyn. Trend lactic acid levels. Await culture results. #2 community acquired pna: zosyn, await cultures. #4 acute on chronic kidney disease, suspect stage 4: Patient did receive IV fluids in the emergency department in the setting of sepsis. Will monitor renal function. Will avoid nephrotoxic agents. Renally dose antibiotics. Will consult nephrology Dr. Hodges. #5 diabetes mellitus: Check A1c. Continue home insulin dose. Insulin sliding scale #6 coronary artery disease: Continue home medications. We will hold Lasix at the current time given patient's diarrhea and sepsis. #7 diarrhea: Possibly secondary to underlying sepsis, hypomagnesemia. Will ch sohail magnesium level. Check stool studies.. #8 Normocytic anemia: Hemoglobin of 10.1. No signs of bleeding. likely chronic in the setting of CKD. Will defer to nephrology for Procrit/Epogen treatment. #9 DVT and GI prophylaxis: SCDs, no gi prophylaxis indicated Further treatment strategy will be implemented as per the clinical course Result Diagram: 01/05/19 22001/05/19 2200 Results 24hrs Laboratory Tests Test 01/05/19 22:00 01/05/19 22:08 White Blood Count 15.7 #H Red Blood Count 3.68 #L Hemoglobin 10.4 #L Hematocrit 32.4 #L Mean Corpuscular Volume 88.0 Mean Corpuscular Hemoglobin 28.3 L Mean Corpuscular Hemoglobin Concent 32.1 Red Cell Distribution Width 13.3 Platelet Count 148 Mean Platelet Volume 10.4 Immature Granulocytes % 0.300 Neutrophils % 54.2 Lymphocytes % 39.2 Monocytes % 5.7 Eosinophils % 0.3 Basophils % 0.3 Nucleated Red Blood Cells % 0.0 Immature Granulocytes # 0.050 H Neutrophils # 8.5 H Lymphocytes # 6.2 H Monocytes # 0.9 Eosinophils # 0.1 Basophils # 0.1 Nucleated Red Blood Cells # 0.0 Prothrombin Time 14.2 Prothrombin Time Ratio 1.1 INR International Normalized Ratio 1.09 Activated Partial Thromboplast Time 41.1 H Urine Color YELLOW Urine Clarity CLEAR Urine pH 6.0 Urine Specific Matthews 1.015 Urine Ketones NEGATIVE Urine Nitrite NEGATIVE Urine Bilirubin NEGATIVE Urine Urobilinogen NEGATIVE Urine Leukocyte Esterase NEGATIVE Urine Microscopic RBC 18 H Urine Microscopic WBC 1 Urine Bacteria FEW A Urine Mucus FEW A Urine Hemoglobin 2+ H Urine Glucose 3+ H Urine Total Protein 3+ H Sodium Level 138 Potassium Level 5.5 H Chloride Level 105 Carbon Dioxide Level 24 Anion Gap 9 Blood Urea Nitrogen 51 H Creatinine 3.57 H Est Glomerular Filtrat Rate mL/min 17 L Glucose Level 280 H Calcium Level 8.5 Total Bilirubin 0.5 Direct Bilirubin 0.00 Indirect Bilirubin 0.5 Aspartate Amino Transf (AST/SGOT) 43 Alanine Aminotransferase (ALT/SGPT) 28 Alkaline Phosphatase 85 Troponin I 0.094 Total Protein 7.5 Albumin 3.8 Globulin 3.70 H Albumin/Globulin Ratio 1.02 POC Venous Lactate 1.6 HPI/ROS Admit Date/Time Admit Date/Time Hx of Present Illness Chief complaint:, Cough This is a 68-year-old male with a past medical history of hypertension, coronary artery disease, chronic kidney disease, who presented to the [facility] with complaints of fever and cough. Patient reports that he had a cough for the past few days as well as a fever. He did report feeling short of breath. He denies any chest pain. He initially denied any nausea vomiting or diarrhea. However while in the hospital he did develop multiple loose bowel movements. Allergies: NKDA Medications: Clonidine 0.1 mg p.o. every 6 hours as needed for systolic greater than 160 Lasix 40 mg p.o. daily montelukast 10 mg p.o. daily Cetirizine 10 mg p.o. twice daily Ferrous sulfate 25 mg p.o. daily Aspirin 81 mg p.o. daily Atorvastatin 10 mg p.o. nightly Carvedilol 12.5 g p.o. twice daily Plavix 75 mg p.o. daily Lantus 10 units subcu nightly Continue patch ROS Const: As per HPI Eyes : No pain discharge or redness or change in visual acuity ENT: No pain, sore throat, congestion, congestion, dysphagia or discharge Respiratory: As per HPI Cardiovascular: No chest pain, palpitation, PND, or edema GI : As per HPI Genitourinary: No dysuria, hematuria, flank pain , discharge or CVA tenderness Musculoskeletal: No joint pain, back pain, neck pain, restricted range of motion in neck or joints Skin: No rash, bruising or hives Neuro: No headache, dizziness, syncope, seizure, focal weakness Endocrine: No polyuria, polydipsia, temperature intolerance Psych: No hallucination, depression, anxiety or suicidal ideation PMH/Family/Social Past Medical History Chronic kidney disease, diabetes mellitus, coronary artery disease, history of MD, hypertension Medications Current Medications Ondansetron HCl (Zofran Inj) 4 mg BRIDGE ORDER PRN IV NAUSEA/VOMITING; Start 01/06/19 at 00:30; Stop 01/07/19 at 00:29 Acetaminophen (Tylenol Tab) 650 mg ER BRIDGE PRN PO .MILD PAIN 1-3 OR TEMP; Start 01/06/19 at 00:30; Stop 01/07/19 at 00:29 Coded Allergies: No Known Allergy (Unverified , 03/31/16) Past Surgical History Cardiac stents 2 Past Surgical Hx: other Family History Significant Family History: hypertension Social History Alcohol Use: none Smoking Status: Former smoker Drug Use: none Exam/Review of Systems Vital Signs Vitals Vital Signs Date Temp Pulse Resp B/P (MAP) Pulse Ox O2 O2 Flow FiO2 Time Delivery Rate 01/05/19 102.2 107 19 170/74 97 21:47 (106) Exam Exam General: Patient is currently lying in bed in no acute distress, he is having a dry cough HEENT: Atraumatic, normocephalic. The pupils are equal, round and reactive. Extraocular motor are intact Neck: Supple with full range of motion. No rigidity or meningismus Chest: Nontender Lungs: Coarse breath sounds bilaterally, diminished at the left side, dry cough, nonlabored breathing Heart: Normal S1-S2, Regular rhythm and rate. No murmur, S3, or S4 Abdomen: Soft , nontender, nondistended , bowel sounds are present. No guarding no rebound tenderness , No masses or organomegaly. No costovertebral temporal angle mass Extremities: Normal to inspection, no edema no cyanosis Neurologic: Normal mental status, speech normal, cranial nerves II through XII are intact, motor and sensory are intact, Additional Comments PROCEDURE: One view chest radiograph. CLINICAL INDICATION: Possible sepsis TECHNIQUE: An AP view of the chest was obtained. COMPARISON: None. FINDINGS: Mediastinum: Aortic wall calcification Heart size: Normal. Pulmonary vasculature: No visible engorgement. Lungs: There is infiltrate in the mid lateral left lung. . Costophrenic sulci: Clear. Bony structures: Grossly unremarkable for age. IMPRESSION: 1. Left-sided pneumonia new since the prior study. 2. Aortic atherosclerosis. RPTAT:AAJJ Physician Ciaran Date Time Electronically viewed and signed by Physician Ciaran on 01/05/2019 22:47 GW/ CC: JOSH RENTERIA MD [id number] DMITRY PALMER Jan 06, 2019 00:29
[2019-01-06] MEDS ORDERED: BISACODYL (EC) 5 MG TAB PO PRN (03:00)
[2019-01-06] MEDS ORDERED: DOCUSATE SODIUM 100 MG CAP PO PRN (03:00)
[2019-01-06] MEDS ORDERED: NACL 0.9% 3 ML SYG IV SCH (03:00)
[2019-01-06 03:35] VITALS: BP 143/67; PULSE 88; RESP 21
[2019-01-06] MEDS ORDERED: GLUCOSE GEL 15 GRAM TUBE BUCCAL PRN (05:00)
[2019-01-06] MEDS ORDERED: GLUCAGON 1 MG INJ IM PRN (05:00)
[2019-01-06] MEDS ORDERED: GLUCOSE GEL 15 GRAM TUBE PO PRN ×2 (05:00)
[2019-01-06] MEDS ORDERED: DEXTROSE 50% 50 ML SYRINGE IV PRN ×2 (05:00)
[2019-01-06] MEDS: HEPARIN 5,000 UNIT/1 ML VIAL SC SCH ×3 (05:45→20:43)
[2019-01-06] MEDS: PIPER-TAZO 2.25 GM (PMX) 50 ML IVPB SCH ×3 (06:59→21:31)
[2019-01-06] MEDS: INSULIN ASPART [NOVOLOG] 3 ML PEN SC SCH ×5 (07:56→20:47)
[2019-01-06 08:00] VITALS: BP 177/83; PULSE 100; RESP 18
--- NOTE | 2019-01-06 08:24 | CONS ---
Assessment/Plan Assessment/Plan Assessment/Plan (Daily) 1. acute hyperkalemia due to PHIL 2. Acute kidney injury on CKD IV due to sepsis and Hemodynamics 3. sepsis due to PNA and GI infection 4. Diarrhea 5. possible Community acquired PNA 6. H/O DM II 7. 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 H/o CHF Plan: admission to med/surge floor,K improved to normal with kayexalate IV abx zosyn and azithromycin, Azithromycin has been stopped hold off on lasix for now pt has a full CKD work up done in clinic no need to repeat it he has CKD IV due to DM nephropahty thanks for consultation, i will contiue to follow up Consultation Date/Type/Reason Admit Date/Time 01/06/19 Date of Consultation: Jan 06, 2019 Type of Consult NEPHROLOGY Reason for Consultation Acute on chronic renal failure, hyperkalemia, Metabolic acidosis Requesting Provider: DMITRY PALMER Date/Time of Note DATE: 01/06/19 TIME: 08:24 Hx of Present Illness 68-year-old male with a past medical history of hypertension, coronary artery disease, chronic kidney disease, who presented to the emergency department with complaints of fever and cough. Patient reports that he had a cough for the past few days as well as a fever. He did report feeling short of breath. pt gets admitted for sepsis due to PNA and Possible GI infection - he has been started on IV abx zosyn and flagyl. on admission he was noted to have BUN/Cr 51/3.57, K 5.5- Renal has been consulted for Acute hyperkalemia and acute on ch ronic renal faiulre Constitutional: febrile, poor po Eyes: no complaints ENT: no complaints Respiratory: shortness of breath Cardiovascular: no complaints Gastrointestinal: pain, diarrhea Genitourinary: no complaints Musculoskeletal: no complaints Skin: no complaints Neurologic: no complaints Endocrine: no complaints Lymphatic: no complaints Psychological: no complaints Immunologic: no complaints Past Medical History Medical History: congestive heart failure, high cholesterol, hypertension, renal disease Home Meds Active Scripts Atorvastatin Calcium (Atorvastatin Calcium) 10 Mg Tablet, 10 MG PO QHS, #30 TAB Prov:EBONY LEBRON MD 04/01/16 Insulin Glargine* (Lantus*) 100 Unit/Ml Soln, 10 UNIT SC QHS for 90 Days Prov:WILNER CANSECO MD 04/01/16 [Nicotine (14 Mg/24 Hr)] 1 PATCH PATCH No Conflict Check, 1 PATCH TRANSDERM DAILY, #30 Prov:EBONY LEBRON MD 04/01/16 Aspirin (Aspirin) 81 Mg Chew, 81 MG PO DAILY, #30 TAB 1 Refill Prov:EBONY LEBRON MD 04/01/16 Reported Medications Cetirizine Hcl* (Cetirizine Hcl*) 10 Mg Tab.chew, 10 MG PO BID, #30 TAB 01/06/19 Furosemide* (Furosemide*) 40 Mg Tablet, 40 MG PO DAILY for edema, TAB 01/06/19 Clonidine Hcl* (Clonidine Hcl*) 0.1 Mg Tab, 0.1 MG PO Q6 for sbp > 160, TAB 01/06/19 Montelukast Sodium* (Montelukast Sodium*) 5 Mg Tab.chew, 10 MG PO DAILY, #30 TAB 01/06/19 Ferrous Sulfate (Ferrous Sulfate) 325 Mg Tablet.dr, 325 MG PO DAILY 01/06/19 Carvedilol* (Carvedilol*) 25 Mg Tablet, 12.5 MG PO BID, #60 TAB 12/25/16 Clopidogrel Bisulfate (Clopidogrel) 75 Mg Tablet, 75 MG PO DAILY, #30 TAB 12/25/16 Discontinued Reported Medications Lisinopril* (Lisinopril*) 10 Mg Tablet, 10 MG PO DAILY, #30 TAB 12/25/16 Spironolactone* (Aldactone*) 25 Mg Tablet, 25 MG PO DAILY, #30 TAB 12/25/16 Discontinued Scripts Sulfamethoxazole/Trimethoprim* (Bactrim Ds* Tablet) 1 Each Tablet, 1 TAB PO BID, #20 TAB Prov:LAMBERT MARIANO PA-C 02/27/18 Cephalexin* (Keflex*) 500 Mg Capsule, 500 MG PO QID for 10 Days, CAP Prov:LAMBERT MARIANO PA-C 02/27/18 Gabapentin* (Gabapentin*) 100 Mg Capsule, 200 MG PO QHS, #30 CAP 0 Refills Prov:FERNANDEZ GIANG MD 12/27/16 Mupirocin* (Bactroban*) 2% -22 Gram Oint...g., 1 APPLIC TOP TID for 30 Days, #1 TUB SITE OF APPLICATION: Prov:FERNANDEZ GIANG MD 12/27/16 Vitamin B Complex (B Complex # 1) 1 Each Tablet, 1 EACH PO DAILY for 30 Days, #30 TAB 3 Refills Prov:FERNANDEZ GIANG MD 12/27/16 Sitagliptin Phos/Metformin HCl (Janumet 50-1,000 mg Tablet) 1 Each Tablet, 1 EACH PO BID, #60 TAB Prov:EBONY LEBRON MD 04/01/16 Nitroglycerin* (Nitrostat*) 0.4 Mg Tab.subl, 1 TAB SL Q5M PRN for CHEST PAIN, #30 Prov:EBONY LEBRON MD 04/01/16 Medications Current Medications Aspirin (Aspirin) 81 mg DAILY PO ; Start 01/06/19 at 09:00 Atorvastatin Calcium (Lipitor) 10 mg QHS PO ; Start 01/06/19 at 21:00 Carvedilol (Coreg) 25 mg BID PO ; Start 01/06/19 at 09:00 Clopidogrel Bisulfate (plaVIX) 75 mg DAILY PO ; Start 01/06/19 at 09:00 Gabapentin (Neurontin) 200 mg QHS PO ; Start 01/06/19 at 21:00 Insulin Glargine (Lantus) 10 units QHS SC ; Start 01/06/19 at 21:00 IV Flush (NS 3 ml) 3 ml PER PROTOCOL IV ; Start 01/06/19 at 03:00 Ondansetron HCl (Zofran Inj) 4 mg Q6H PRN IV NAUSEA/VOMITING; Start 01/06/19 at 03:00 Acetaminophen (Tylenol Tab) 650 mg Q6H PRN PO .PAIN 1-3 OR TEMP; Start 01/06/19 at 03:00 Docusate Sodium (Colace) 100 mg Q12H PRN PO .CONSTIPATION; Start 01/06/19 at 03:00 Bisacodyl (Dulcolax) 5 mg DAILY PRN PO .CONSTIPATION; Start 01/06/19 at 03:00 Heparin Sodium (Porcine) (Heparin (5000 Units/1ml)) 5,000 unit Q8 SC Last administered on 01/06/19at 05:45; Admin Dose 5,000 UNIT; Start 01/06/19 at 06:00 Nicotine (Nicoderm 14 Mg/ 24hr) 1 patch DAILY TRANSDERM ; Start 01/06/19 at 09:00 Diagnostic Test (Pha) (Accu-Chek) 1 ea 02 XX ; Start 01/07/19 at 02:00 Insulin Aspart (Novolog Insulin Pen) NOVOLOG *MILD* ALGORITHM WITH MEALS BEDTIME SC Last administered on 01/06/19at 07:56; Admin Dose 3 UNIT; Start 01/06/19 at 08:00 Miscellaneous Information 1 ea NOTE XX ; Start 01/06/19 at 05:00 Glucose (Glutose) 15 gm Q15M PRN PO DECREASED GLUCOSE; Start 01/06/19 at 05:00 Glucose (Glutose) 22.5 gm Q15M PRN PO DECREASED GLUCOSE; Start 01/06/19 at 05:00 Dextrose (D50w Syringe) 25 ml Q15M PRN IV DECREASED GLUCOSE; Start 01/06/19 at 05:00 Dextrose (D50w Syringe) 50 ml Q15M PRN IV DECREASED GLUCOSE; Start 01/06/19 at 05:00 Glucagon (Glucagen) 1 mg Q15M PRN IM DECREASED GLUCOSE; Start 01/06/19 at 05:00 Glucose (Glutose) 15 gm Q15M PRN BUCCAL DECREASED GLUCOSE; Start 01/06/19 at 05:00 Piperacillin Sod/ Tazobactam Sod 50 ml @ 100 mls/hr Q8 IVPB Last administered on 01/06/19at 06:59; Admin Dose 100 MLS/HR; Start 01/06/19 at 06:30 Magnesium Sulfate 100 ml @ 25 mls/hr ONCE ONCE IVPB ; Start 01/06/19 at 09:00; Stop 01/06/19 at 12:59 Clonidine (Catapres) 0.1 mg Q6H PRN PO SBP GREATER THAN 170; Start 01/06/19 at 08:30 Montelukast Sodium (Singulair) 10 mg HS PO ; Start 01/06/19 at 21:00 Miscellaneous Information 10 mg BID PO ; Start 01/06/19 at 09:00; Status UNV Ferrous Sulfate (Ferrous Sulfate (Ec)) 325 mg DAILY PO ; Start 01/06/19 at 09:00 Allergies: Coded Allergies: No Known Allergy (Unverified , 03/31/16) Past Surgical History Past Surgical Hx: no surgical history, other Family History Significant Family History: no pertinent family hx Social History Alcohol Use: none Smoking Status: Former smoker Drug Use: none Exam/Review of Systems Exam Vitals Vital Signs Date Temp Pulse Resp B/P (MAP) Pulse Ox O2 O2 Flow FiO2 Time Delivery Rate 01/06/19 98.5 06:11 01/06/19 88 21 143/67 92 03:35 (92) 01/06/19 Nasal 2.0 03:00 Cannula Intake and Output 01/05/19 01/05/19 01/06/19 1515:00 23:00 07:00 IntakeIntake Total 240 ml OutputOutput Total 800 ml BalanceBalance -560 ml Constitutional: alert Head: normocephalic Eyes: nl conjunctiva ENMT: nl external ears & nose Neck: supple, non-tender Respiratory: congested cough, crackles/rales, diminished breath sounds Cardiovascular: regular rate and rhythm, nl pulses Gastrointestinal: soft, tender (TTP diffusely ) Musculoskeletal: swelling (1-2+ pitting edema ) Neurological: EQUIPMENT LEAD II-XII intact, nl mental status, nl speech, nl strength Lymph: nl lymph nodes Results Result Diagram: 01/06/1952101/06/19521 Results 24hrs Laboratory Tests Test 01/05/19 22:00 01/05/19 22:08 01/06/19 00:37 01/06/19 03:45 White Blood Count 15.7 #H Red Blood Count 3.68 #L Hemoglobin 10.4 #L Hematocrit 32.4 #L Mean Corpuscular 88.0 Volume Mean Corpuscular 28.3 L Hemoglobin Mean Corpuscular 32.1 Hemoglobin Concent Red Cell 13.3 Distribution Width Platelet Count 148 Mean Platelet Volume 10.4 Immature 0.300 Granulocytes % Neutrophils % 54.2 Lymphocytes % 39.2 Monocytes % 5.7 Eosinophils % 0.3 Basophils % 0.3 Nucleated Red Blood 0.0 Cells % Immature 0.050 H Granulocytes # Neutrophils # 8.5 H Lymphocytes # 6.2 H Monocytes # 0.9 Eosinophils # 0.1 Basophils # 0.1 Nucleated Red Blood 0.0 Cells # Prothrombin Time 14.2 Prothrombin Time 1.1 Ratio INR International 1.09 Normalized Ratio Activated 41.1 H Partial Thromboplast Time Urine Color YELLOW Urine Clarity CLEAR Urine pH 6.0 Urine Specific 1.015 [place] Urine Ketones NEGATIVE Urine Nitrite NEGATIVE Urine Bilirubin NEGATIVE Urine Urobilinogen NEGATIVE Urine Leukocyte NEGATIVE Esterase Urine Microscopic 18 H RBC Urine Microscopic 1 WBC Urine Bacteria FEW A Urine Mucus FEW A Urine Hemoglobin 2+ H Urine Glucose 3+ H Urine Total Protein 3+ H Sodium Level 138 Potassium Level 5.5 H Chloride Level 105 Carbon Dioxide Level 24 Anion Gap 9 Blood Urea Nitrogen 51 H Creatinine 3.57 H Est Glomerular 17 L Filtrat Rate mL/min Glucose Level 280 H Calcium Level 8.5 Total Bilirubin 0.5 Direct Bilirubin 0.00 Indirect Bilirubin 0.5 Aspartate Amino 43 Transf (AST/SGOT) Alanine 28 Aminotransferase (AL T/SGPT) Alkaline Phosphatase 85 Troponin I 0.094 Total Protein 7.5 Albumin 3.8 Globulin 3.70 H Albumin/Globulin 1.02 Ratio POC Venous Lactate 1.6 Lactic Acid Level 1.4 0.8 Test 01/06/19 05:22 01/06/19 07:48 White Blood Count 13.1 H Red Blood Count 3.28 L Hemoglobin 9.1 L Hematocrit 29.1 L Mean Corpuscular 88.7 Volume Mean Corpuscular 27.7 L Hemoglobin Mean Corpuscular 31.3 L Hemoglobin Concent Red Cell 13.3 Distribution Width Platelet Count 132 L Mean Platelet Volume 11.2 H Immature 0.500 H Granulocytes % Neutrophils % 46.9 Lymphocytes % 44.8 Monocytes % 6.7 Eosinophils % 0.6 Basophils % 0.5 Nucleated Red Blood 0.0 Cells % Immature 0.060 H Granulocytes # Neutrophils # 6.1 Lymphocytes # 5.9 H Monocytes # 0.9 Eosinophils # 0.1 Basophils # 0.1 Nucleated Red Blood 0.0 Cells # Sodium Level 143 Potassium Level 4.8 Chloride Level 112 H Carbon Dioxide Level 21 Anion Gap 10 Blood Urea Nitrogen 48 H Creatinine 3.32 H Est Glomerular 19 L Filtrat Rate mL/min Glucose Level 253 H Hemoglobin A1c 7.8 H Calcium Level 8.0 L Magnesium Level 1.1 L Total Bilirubin 0.4 Direct Bilirubin 0.00 Indirect Bilirubin 0.4 Aspartate Amino 25 Transf (AST/SGOT) Alanine 22 Aminotransferase (AL T/SGPT) Alkaline Phosphatase 74 Total Protein 6.4 # Albumin 3.3 Globulin 3.10 Albumin/Globulin 1.06 Ratio Triglycerides Level 167 H Cholesterol Level 123 LDL Cholesterol, 63 Calculated HDL Cholesterol 27 L Cholesterol/HDL 4.5 Ratio Thyroid Stimulating 1.840 Hormone (TSH) Bedside Glucose 227 H Medications Medication Current Medications Aspirin (Aspirin) 81 mg DAILY PO ; Start 01/06/19 at 09:00 Atorvastatin Calcium (Lipitor) 10 mg QHS PO ; Start 01/06/19 at 21:00 Carvedilol (Coreg) 25 mg BID PO ; Start 01/06/19 at 09:00 Clopidogrel Bisulfate (plaVIX) 75 mg DAILY PO ; Start 01/06/19 at 09:00 Gabapentin (Neurontin) 200 mg QHS PO ; Start 01/06/19 at 21:00 Insulin Glargine (Lantus) 10 units QHS SC ; Start 01/06/19 at 21:00 IV Flush (NS 3 ml) 3 ml PER PROTOCOL IV ; Start 01/06/19 at 03:00 Ondansetron HCl (Zofran Inj) 4 mg Q6H PRN IV NAUSEA/VOMITING; Start 01/06/19 at 03:00 Acetaminophen (Tylenol Tab) 650 mg Q6H PRN PO .PAIN 1-3 OR TEMP; Start 01/06/19 at 03:00 Docusate Sodium (Colace) 100 mg Q12H PRN PO .CONSTIPATION; Start 01/06/19 at 03:00 Bisacodyl (Dulcolax) 5 mg DAILY PRN PO .CONSTIPATION; Start 01/06/19 at 03:00 Heparin Sodium (Porcine) (Heparin (5000 Units/1ml)) 5,000 unit Q8 SC Last administered on 01/06/19at 05:45; Admin Dose 5,000 UNIT; Start 01/06/19 at 06:00 Nicotine (Nicoderm 14 Mg/ 24hr) 1 patch DAILY TRANSDERM ; Start 01/06/19 at 09:00 Diagnostic Test (Pha) (Accu-Chek) 1 ea 02 XX ; Start 01/07/19 at 02:00 Insulin Aspart (Novolog Insulin Pen) NOVOLOG *MILD* ALGORITHM WITH MEALS BEDTIME SC Last administered on 01/06/19at 07:56; Admin Dose 3 UNIT; Start 01/06/19 at 08:00 Miscellaneous Information 1 ea NOTE XX ; Start 01/06/19 at 05:00 Glucose (Glutose) 15 gm Q15M PRN PO DECREASED GLUCOSE; Start 01/06/19 at 05:00 Glucose (Glutose) 22.5 gm Q15M PRN PO DECREASED GLUCOSE; Start 01/06/19 at 05:00 Dextrose (D50w Syringe) 25 ml Q15M PRN IV DECREASED GLUCOSE; Start 01/06/19 at 05:00 Dextrose (D50w Syringe) 50 ml Q15M PRN IV DECREASED GLUCOSE; Start 01/06/19 at 05:00 Glucagon (Glucagen) 1 mg Q15M PRN IM DECREASED GLUCOSE; Start 01/06/19 at 05:00 Glucose (Glutose) 15 gm Q15M PRN BUCCAL DECREASED GLUCOSE; Start 01/06/19 at 05:00 Piperacillin Sod/ Tazobactam Sod 50 ml @ 100 mls/hr Q8 IVPB Last administered on 01/06/19at 06:59; Admin Dose 100 MLS/HR; Start 01/06/19 at 06:30 Magnesium Sulfate 100 ml @ 25 mls/hr ONCE ONCE IVPB ; Start 01/06/19 at 09:00; Stop 01/06/19 at 12:59 Clonidine (Catapres) 0.1 mg Q6H PRN PO SBP GREATER THAN 170; Start 01/06/19 at 08:30 Montelukast Sodium (Singulair) 10 mg HS PO ; Start 01/06/19 at 21:00 Miscellaneous Information 10 mg BID PO ; Start 01/06/19 at 09:00; Status UNV Ferrous Sulfate (Ferrous Sulfate (Ec)) 325 mg DAILY PO ; Start 01/06/19 at 09:00 ADIS MARKS MD Jan 06, 2019 08:24
[2019-01-06] MEDS: ASPIRIN 81 MG TAB PO SCH (08:54)
[2019-01-06] MEDS: CLOPIDOGREL 75 MG TAB PO SCH (08:54)
[2019-01-06 08:55] VITALS: BP 149/91
[2019-01-06] MEDS: NICOTINE (14 MG/24 HR) PATCH TRANSDERM SCH (08:55)
[2019-01-06] MEDS: FERROUS SULFATE (EC) 325 MG TAB PO SCH (08:57)
[2019-01-06] MEDS ORDERED: MAGNESIUM SULFATE 4 GM/100 ML 100 ML IVPB ONE ×2 (09:00→13:00)
[2019-01-06] MEDS ORDERED: NON-FORMULARY/PATIENT OWN MED (Ferrous Sulfate 325 MG) PO SCH (09:00)
[2019-01-06] MEDS ORDERED: NON-FORMULARY/PATIENT OWN MED ([Nicotine (14 Mg/24 Hr)] 1 PATCH) TRANSDERM SCH (09:00)
[2019-01-06 14:00] VITALS: BP 106/51; PULSE 76; RESP 18
--- NOTE | 2019-01-06 14:23 | PN ---
Date/Time of Note Date/Time of Note DATE: 01/06/19 TIME: 14:21 Assessment/Plan VTE Prophylaxis Risk score (from Ns)>0 risk: 2 SCD applied (from [facility] [place] No SCD contraindicated: other Pharmacological prophylaxis: heparin Lines/Catheters IV C[facility] Type (from [facility]): Saline Lock Assessment/Plan Hospital Course SUBJECTIVE: Denies any dyspnea at this time. OBJECTIVE: Physical Exam General: Adequately build 68 year-old male lying in bed in no apparent distress. HEENT: Normocephalic, atraumatic. Eyes: Anicteric sclerae, conjunctivae clear. ENT: Nasal septum midline, oral mucosa moist. Neck supple, no JVD noticed. Respiratory: Bilaterally diminished breath sounds. No use of accessory muscles of respiration. Cardiovascular: S1, S2 heard. Regular rate and rhythm. Abdomen: Soft, nontender, and nondistended. Bowel sounds positive in all 4 quadrants. Genitourinary: Deferred. Extremities: No cyanosis, no clubbing, no edema. Peripheral pulses palpable. Neurologic: Cranial nerves II through XII grossly intact. The patient is awake, alert, and oriented. Skin: Normal skin turgor. No skin rashes. Labs & Vitals per chart ASSESSMENT & PLAN 68-year-old male with comorbidities including hypertension, diabetes mellitus type 2, coronary artery disease, ischemic cardiomyopathy, chronic kidney disease, and nicotine use, who presented to the emergency department with complaints of fever and cough who was found to have evidence of underlying sep sis with leukocytosis, tachycardia, tachypnea, and febrile illness with evidence of underlying lung infiltrates, who was admitted to inpatient setting for further treatment and evaluation. 1. Sepsis with leukocytosis, tachycardia, tachypnea, and febrile illness, present on admission secondary to underlying community-acquired pneumonia. Continue antimicrobials. Pancultures pending. 2. Community-acquired pneumonia. Continue appropriate antimicrobials. 3. Ischemic cardiomyopathy. Ejection fraction on 2D echocardiogram done on March 2016 25 to 30%. Continue beta-blockers. EUGENIE inhibitors not used because of underlying suboptimal renal function. 4. History of CAD. Continue antiplatelet therapy. Continue statins. 5. Chronic kidney disease. Being followed by nephrology. Monitor BUN and creatinine closely. 6. Nicotine use. Cessation advised. Nicotine patch. 7. Dyslipidemia. Continue statins. 8. Normocytic anemia. Most probably anemia chronic disease. Monitor H&H closely. 9. Fluids, electrolytes, and nutrition. Carbohydrate controlled, low-cholesterol diet. 10. DVT prophylaxis. Subcutaneous heparin. 11. Plan. Continue antimicrobials. Await clinical improvement before discharging the patient home. The patient was seen in collaboration with Dr. Carrillo. Result Diagram: 01/06/[id number]/19521 Results 24hrs Laboratory Tests Test 01/05/19 22:00 01/05/19 22:08 01/06/19 00:37 01/06/19 03:45 White Blood Count 15.7 #H Red Blood Count 3.68 #L Hemoglobin 10.4 #L Hematocrit 32.4 #L Mean Corpuscular 88.0 Volume Mean Corpuscular 28.3 L Hemoglobin Mean Corpuscular 32.1 Hemoglobin Concent Red Cell 13.3 Distribution Width Platelet Count 148 Mean Platelet Volume 10.4 Immature 0.300 Granulocytes % Neutrophils % 54.2 Lymphocytes % 39.2 Monocytes % 5.7 Eosinophils % 0.3 Basophils % 0.3 Nucleated Red Blood 0.0 Cells % Immature 0.050 H Granulocytes # Neutrophils # 8.5 H Lymphocytes # 6.2 H Monocytes # 0.9 Eosinophils # 0.1 Basophils # 0.1 Nucleated Red Blood 0.0 Cells # Prothrombin Time 14.2 Prothrombin Time 1.1 Ratio INR International 1.09 Normalized Ratio Activated 41.1 H Partial Thromboplast Time Urine Color YELLOW Urine Clarity CLEAR Urine pH 6.0 Urine Specific 1.015 [place] Urine Ketones NEGATIVE Urine Nitrite NEGATIVE Urine Bilirubin NEGATIVE Urine Urobilinogen NEGATIVE Urine Leukocyte NEGATIVE Esterase Urine Microscopic 18 H RBC Urine Microscopic 1 WBC Urine Bacteria FEW A Urine Mucus FEW A Urine Hemoglobin 2+ H Urine Glucose 3+ H Urine Total Protein 3+ H Sodium Level 138 Potassium Level 5.5 H Chloride Level 105 Carbon Dioxide Level 24 Anion Gap 9 Blood Urea Nitrogen 51 H Creatinine 3.57 H Est Glomerular 17 L Filtrat Rate mL/min Glucose Level 280 H Calcium Level 8.5 Total Bilirubin 0.5 Direct Bilirubin 0.00 Indirect Bilirubin 0.5 Aspartate Amino 43 Transf (AST/SGOT) Alanine 28 Aminotransferase (AL T/SGPT) Alkaline Phosphatase 85 Troponin I 0.094 Total Protein 7.5 Albumin 3.8 Globulin 3.70 H Albumin/Globulin 1.02 Ratio POC Venous Lactate 1.6 Lactic Acid Level 1.4 0.8 Test 01/06/19 05:22 01/06/19 07:48 01/06/19 12:05 White Blood Count 13.1 H Red Blood Count 3.28 L Hemoglobin 9.1 L Hematocrit 29.1 L Mean Corpuscular 88.7 Volume Mean Corpuscular 27.7 L Hemoglobin Mean Corpuscular 31.3 L Hemoglobin Concent Red Cell 13.3 Distribution Width Platelet Count 132 L Mean Platelet Volume 11.2 H Immature 0.500 H Granulocytes % Neutrophils % 46.9 Lymphocytes % 44.8 Monocytes % 6.7 Eosinophils % 0.6 Basophils % 0.5 Nucleated Red Blood 0.0 Cells % Immature 0.060 H Granulocytes # Neutrophils # 6.1 Lymphocytes # 5.9 H Monocytes # 0.9 Eosinophils # 0.1 Basophils # 0.1 Nucleated Red Blood 0.0 Cells # Sodium Level 143 Potassium Level 4.8 Chloride Level 112 H Carbon Dioxide Level 21 Anion Gap 10 Blood Urea Nitrogen 48 H Creatinine 3.32 H Est Glomerular 19 L Filtrat Rate mL/min Glucose Level 253 H Hemoglobin A1c 7.8 H Calcium Level 8.0 L Magnesium Level 1.1 L Total Bilirubin 0.4 Direct Bilirubin 0.00 Indirect Bilirubin 0.4 Aspartate Amino 25 Transf (AST/SGOT) Alanine 22 Aminotransferase (AL T/SGPT) Alkaline Phosphatase 74 Total Protein 6.4 # Albumin 3.3 Globulin 3.10 Albumin/Globulin 1.06 Ratio Triglycerides Level 167 H Cholesterol Level 123 LDL Cholesterol, 63 Calculated HDL Cholesterol 27 L Cholesterol/HDL 4.5 Ratio Thyroid Stimulating 1.840 Hormone (TSH) Bedside Glucose 227 H 264 H Exam/Review of Systems Exam Vitals Vital Signs Date Temp Pulse Resp B/P (MAP) Pulse Ox O2 O2 Flow FiO2 Time Delivery Rate 01/06/19 98.7 09:39 01/06/19 149/91 08:55 (110) 01/06/19 100 18 96 08:00 01/06/19 Nasal 2.0 03:00 Cannula Intake and Output 01/05/19 01/05/19 01/06/19 1515:00 23:00 07:00 IntakeIntake Total 240 ml OutputOutput Total 800 ml BalanceBalance -560 ml Results Results 24hrs Laboratory Tests Test 01/05/19 22:00 01/05/19 22:08 01/06/19 00:37 01/06/19 03:45 White Blood Count 15.7 #H Red Blood Count 3.68 #L Hemoglobin 10.4 #L Hematocrit 32.4 #L Mean Corpuscular 88.0 Volume Mean Corpuscular 28.3 L Hemoglobin Mean Corpuscular 32.1 Hemoglobin Concent Red Cell 13.3 Distribution Width Platelet Count 148 Mean Platelet Volume 10.4 Immature 0.300 Granulocytes % Neutrophils % 54.2 Lymphocytes % 39.2 Monocytes % 5.7 Eosinophils % 0.3 Basophils % 0.3 Nucleated Red Blood 0.0 Cells % Immature 0.050 H Granulocytes # Neutrophils # 8.5 H Lymphocytes # 6.2 H Monocytes # 0.9 Eosinophils # 0.1 Basophils # 0.1 Nucleated Red Blood 0.0 Cells # Prothrombin Time 14.2 Prothrombin Time 1.1 Ratio INR International 1.09 Normalized Ratio Activated 41.1 H Partial Thromboplast Time Urine Color YELLOW Urine Clarity CLEAR Urine pH 6.0 Urine Specific 1.015 [place] Urine Ketones NEGATIVE Urine Nitrite NEGATIVE Urine Bilirubin NEGATIVE Urine Urobilinogen NEGATIVE Urine Leukocyte NEGATIVE Esterase Urine Microscopic 18 H RBC Urine Microscopic 1 WBC Urine Bacteria FEW A Urine Mucus FEW A Urine Hemoglobin 2+ H Urine Glucose 3+ H Urine Total Protein 3+ H Sodium Level 138 Potassium Level 5.5 H Chloride Level 105 Carbon Dioxide Level 24 Anion Gap 9 Blood Urea Nitrogen 51 H Creatinine 3.57 H Est Glomerular 17 L Filtrat Rate mL/min Glucose Level 280 H Calcium Level 8.5 Total Bilirubin 0.5 Direct Bilirubin 0.00 Indirect Bilirubin 0.5 Aspartate Amino 43 Transf (AST/SGOT) Alanine 28 Aminotransferase (AL T/SGPT) Alkaline Phosphatase 85 Troponin I 0.094 Total Protein 7.5 Albumin 3.8 Globulin 3.70 H Albumin/Globulin 1.02 Ratio POC Venous Lactate 1.6 Lactic Acid Level 1.4 0.8 Test 01/06/19 05:22 01/06/19 07:48 01/06/19 12:05 White Blood Count 13.1 H Red Blood Count 3.28 L Hemoglobin 9.1 L Hematocrit 29.1 L Mean Corpuscular 88.7 Volume Mean Corpuscular 27.7 L Hemoglobin Mean Corpuscular 31.3 L Hemoglobin Concent Red Cell 13.3 Distribution Width Platelet Count 132 L Mean Platelet Volume 11.2 H Immature 0.500 H Granulocytes % Neutrophils % 46.9 Lymphocytes % 44.8 Monocytes % 6.7 Eosinophils % 0.6 Basophils % 0.5 Nucleated Red Blood 0.0 Cells % Immature 0.060 H Granulocytes # Neutrophils # 6.1 Lymphocytes # 5.9 H Monocytes # 0.9 Eosinophils # 0.1 Basophils # 0.1 Nucleated Red Blood 0.0 Cells # Sodium Level 143 Potassium Level 4.8 Chloride Level 112 H Carbon Dioxide Level 21 Anion Gap 10 Blood Urea Nitrogen 48 H Creatinine 3.32 H Est Glomerular 19 L Filtrat Rate mL/min Glucose Level 253 H Hemoglobin A1c 7.8 H Calcium Level 8.0 L Magnesium Level 1.1 L Total Bilirubin 0.4 Direct Bilirubin 0.00 Indirect Bilirubin 0.4 Aspartate Amino 25 Transf (AST/SGOT) Alanine 22 Aminotransferase (AL T/SGPT) Alkaline Phosphatase 74 Total Protein 6.4 # Albumin 3.3 Globulin 3.10 Albumin/Globulin 1.06 Ratio Triglycerides Level 167 H Cholesterol Level 123 LDL Cholesterol, 63 Calculated HDL Cholesterol 27 L Cholesterol/HDL 4.5 Ratio Thyroid Stimulating 1.840 Hormone (TSH) Bedside Glucose 227 H 264 H Medications Medication Current Medications Aspirin (Aspirin) 81 mg DAILY PO Last administered on 01/06/19at 08:54; Admin Dose 81 MG; Start 01/06/19 at 09:00 Atorvastatin Calcium (Lipitor) 10 mg QHS PO ; Start 01/06/19 at 21:00 Carvedilol (Coreg) 25 mg BID PO Last administered on 01/06/19at 08:55; Admin Dose 25 MG; Start 01/06/19 at 09:00 Clopidogrel Bisulfate (plaVIX) 75 mg DAILY PO Last administered on 01/06/19at 08:54; Admin Dose 75 MG; Start 01/06/19 at 09:00 Gabapentin (Neurontin) 200 mg QHS PO ; Start 01/06/19 at 21:00 Insulin Glargine (Lantus) 10 units QHS SC ; Start 01/06/19 at 21:00 IV Flush (NS 3 ml) 3 ml PER PROTOCOL IV ; Start 01/06/19 at 03:00 Ondansetron HCl (Zofran Inj) 4 mg Q6H PRN IV NAUSEA/VOMITING; Start 01/06/19 at 03:00 Acetaminophen (Tylenol Tab) 650 mg Q6H PRN PO .PAIN 1-3 OR TEMP Last administered on 01/06/19at 08:54; Admin Dose 650 MG; Start 01/06/19 at 03:00 Docusate Sodium (Colace) 100 mg Q12H PRN PO .CONSTIPATION; Start 01/06/19 at 03:00 Bisacodyl (Dulcolax) 5 mg DAILY PRN PO .CONSTIPATION; Start 01/06/19 at 03:00 Heparin Sodium (Porcine) (Heparin (5000 Units/1ml)) 5,000 unit Q8 SC Last administered on 01/06/19at 14:12; Admin Dose 5,000 UNIT; Start 01/06/19 at 06:00 Nicotine (Nicoderm 14 Mg/ 24hr) 1 patch DAILY TRANSDERM Last administered on 01/06/19at 08:55; Admin Dose 1 PATCH; Start 01/06/19 at 09:00 Diagnostic Test (Pha) (Accu-Chek) 1 ea 02 XX ; Start 01/07/19 at 02:00 Insulin Aspart (Novolog Insulin Pen) NOVOLOG *MILD* ALGORITHM WITH MEALS BEDTIME SC Last administered on 01/06/19at 12:09; Admin Dose 4 UNIT; Start 01/06/19 at 08:00 Miscellaneous Information 1 ea NOTE XX ; Start 01/06/19 at 05:00 Glucose (Glutose) 15 gm Q15M PRN PO DECREASED GLUCOSE; Start 01/06/19 at 05:00 Glucose (Glutose) 22.5 gm Q15M PRN PO DECREASED GLUCOSE; Start 01/06/19 at 05:00 Dextrose (D50w Syringe) 25 ml Q15M PRN IV DECREASED GLUCOSE; Start 01/06/19 at 05:00 Dextrose (D50w Syringe) 50 ml Q15M PRN IV DECREASED GLUCOSE; Start 01/06/19 at 05:00 Glucagon (Glucagen) 1 mg Q15M PRN IM DECREASED GLUCOSE; Start 01/06/19 at 05:00 Glucose (Glutose) 15 gm Q15M PRN BUCCAL DECREASED GLUCOSE; Start 01/06/19 at 05:00 Piperacillin Sod/ Tazobactam Sod 50 ml @ 100 mls/hr Q8 IVPB Last administered on 01/06/19at 14:12; Admin Dose 100 MLS/HR; Start 01/06/19 at 06:30 Clonidine (Catapres) 0.1 mg Q6H PRN PO SBP GREATER THAN 170; Start 01/06/19 at 08:30 Montelukast Sodium (Singulair) 10 mg HS PO ; Start 01/06/19 at 21:00 Miscellaneous Information 10 mg BID PO ; Start 01/06/19 at 09:00; Status UNV Ferrous Sulfate (Ferrous Sulfate (Ec)) 325 mg DAILY PO Last administered on 01/06/19at 08:57; Admin Dose 325 MG; Start 01/06/19 at 09:00 LAMONT FAIR NP Jan 06, 2019 14:23
[2019-01-06 20:06] VITALS: BP 145/67; PULSE 83; RESP 18
[2019-01-06] MEDS: MONTELUKAST 10 MG TAB PO SCH (20:42)
[2019-01-06] MEDS: GABAPENTIN 100 MG CAP PO SCH (20:42)
[2019-01-06] MEDS: ATORVASTATIN 10 MG TAB PO SCH (20:42)
[2019-01-06] MEDS: INSULIN GLARGINE [LANTus] (100 UNITS/ML) SYG SC SCH (20:48)
[2019-01-06] MEDS ORDERED: CEFTRIAXONE 2 GM/50 ML (PMX) 50 ML IVPB SCH (23:00)
[2019-01-06] MEDS ORDERED: AZITHROMYCIN 500MG/NS (PMX) 250 ML IVPB SCH (23:00)
[2019-01-07] MEDS: ACCU-CHEK XX SCH (01:40)
[2019-01-07 02:01] VITALS: BP 148/62; PULSE 77; RESP 18
[2019-01-07] MEDS: PIPER-TAZO 2.25 GM (PMX) 50 ML IVPB SCH ×3 (05:40→22:35)
[2019-01-07 08:00] VITALS: BP 158/75; PULSE 77; RESP 18
[2019-01-07] MEDS: NICOTINE (14 MG/24 HR) PATCH TRANSDERM SCH (08:07)
[2019-01-07] MEDS: FERROUS SULFATE (EC) 325 MG TAB PO SCH (08:07)
[2019-01-07] MEDS: ASPIRIN 81 MG TAB PO SCH (08:07)
[2019-01-07] MEDS: CLOPIDOGREL 75 MG TAB PO SCH (08:07)
[2019-01-07] MEDS: LORATADINE 10 MG TAB PO SCH (08:07)
[2019-01-07] MEDS: INSULIN ASPART [NOVOLOG] 3 ML PEN SC SCH ×7 (08:09→20:53)
[2019-01-07] MEDS: HEPARIN 5,000 UNIT/1 ML VIAL SC SCH ×2 (08:10→20:54)
[2019-01-07] MEDS: GUAIFENESIN/DM 5ML CUP PO PRN (13:42)
--- NOTE | 2019-01-07 14:17 | PN ---
Date/Time of Note Date/Time of Note DATE: 01/07/19 TIME: 14:11 Assessment/Plan VTE Prophylaxis Risk score (from Ns)>0 risk: 2 SCD applied (from [facility] [place]): No SCD contraindicated: other Pharmacological prophylaxis: heparin Lines/Catheters IV Catheter Type (from [facility]): Saline Lock Assessment/Plan Hospital Course SUBJECTIVE: Denies any dyspnea at this time. Continues to complain of cough. Patient eating high carbohydrate diet brought in by family/friends. Therefore, blood sugars are running high. OBJECTIVE: Physical Exam General: Adequately build 68 year-old male lying in bed in no apparent distress. HEENT: Normocephalic, atraumatic. Eyes: Anicteric sclerae, conjunctivae clear. ENT: Nasal septum midline, oral mucosa moist. Neck supple, no JVD noticed. Respiratory: Bilaterally diminished breath sounds. No use of accessory muscles of respiration. B/L wheezing. Cardiovascular: S1, S2 heard. Regular rate and rhythm. Abdomen: Soft, nontender, and nondistended. Bowel sounds positive in all 4 quadrants. Genitourinary: Deferred. Extremities: No cyanosis, no clubbing, no edema. Peripheral pulses palpable. Neurologic: Cranial nerves II through XII grossly intact. The patient is awake, alert, and oriented. Skin: Normal skin turgor. No skin rashes. Labs & Vitals per chart ASSESSMENT & PLAN 68-year-old male with comorbidities including hypertension, diabetes mellitus type 2, coronary artery disease, ischemic cardiomyopathy, chronic kidney disease, and nicotine use, who presented to the emergency department with complaints of fever and cough who was found to have evidence of underlying sepsis with leukocytosis, tachycardia, tachypnea, and febrile illness with evidence of underlying lung infiltrates, who was admitted to inpatient setting for further treatment and evaluation. 1. S/P sepsis with leukocytosis, tachycardia, tachypnea, and febrile illness, present on admission secondary to underlying community-acquired pneumonia. Continue antimicrobials. Pancultures negative so far. 2. Community-acquired pneumonia. Continue appropriate antimicrobials. 3. Ischemic cardiomyopathy. Ejection fraction on 2D echocardiogram done on March 2016 25 to 30%. Continue beta-blockers. EUGENIE inhibitors not used because of underlying suboptimal renal function. 4. History of CAD. Continue antiplatelet therapy. Continue statins. 5. Chronic kidney disease. Being followed by nephrology. Monitor BUN and creatinine closely. 6. Nicotine use. Cessation advised. Nicotine patch. 7. Dyslipidemia. Continue statins. 8. Normocytic anemia. Most probably anemia chronic disease. Monitor H&H closely. 9. Fluids, electrolytes, and nutrition. Carbohydrate controlled, low-cholesterol diet. 10. DVT prophylaxis. Subcutaneous heparin. 11. Plan. Continue antimicrobials. Add OFELIA. Await clinical improvement before discharging the patient home. The patient was seen in collaboration with Dr. Carrillo. Result Diagram: 01/07/19 0725 01/07/19 0725 Results 24hrs Laboratory Tests Test 01/06/19 17:08 01/06/19 20:44 01/07/19 01:21 01/07/19 07:25 Bedside Glucose 357 H 253 H 245 H White Blood Count 8.4 # Red Blood Count 2.91 L Hemoglobin 8.1 L Hematocrit 26.0 L Mean Corpuscular 89.3 Volume Mean Corpuscular 27.8 L Hemoglobin Mean Corpuscular 31.2 L Hemoglobin Concent Red Cell 13.2 Distribution Width Platelet Count 121 L Mean Platelet Volume 11.4 H Immature 0.600 H Granulocytes % Neutrophils % 48.6 Lymphocytes % 40.0 Monocytes % 7.4 Eosinophils % 2.9 Basophils % 0.5 Nucleated Red Blood 0.0 Cells % Immature 0.050 H Granulocytes # Neutrophils # 4.1 Lymphocytes # 3.4 H Monocytes # 0.6 Eosinophils # 0.2 Basophils # 0.0 Nucleated Red Blood 0.0 Cells # Sodium Level 142 Potassium Level 4.6 Chloride Level 111 H Carbon Dioxide Level 23 Anion Gap 8 Blood Urea Nitrogen 47 H Creatinine 3.88 H Est Glomerular 15 L Filtrat Rate mL/min Glucose Level 172 Calcium Level 8.0 L Phosphorus Level 3.7 Magnesium Level 2.2 # Total Bilirubin 0.4 Direct Bilirubin 0.00 Indirect Bilirubin 0.4 Aspartate Amino 24 Transf (AST/SGOT) Alanine 30 Aminotransferase (AL T/SGPT) Alkaline Phosphatase 69 Total Protein 6.1 Albumin 3.0 L Globulin 3.10 Albumin/Globulin 0.96 Ratio Test 01/07/19 07:55 01/07/19 12:04 Bedside Glucose 177 268 H Exam/Review of Systems Exam Vitals Vital Signs Date Temp Pulse Resp B/P (MAP) Pulse Ox O2 O2 Flow FiO2 Time Delivery Rate 01/07/19 98.4 77 18 158/75 95 Room Air 08:00 (102) 01/06/19 2.0 03:00 Intake and Output 01/06/19 01/06/19 01/07/19 1515:00 23:00 07:00 IntakeIntake Total 900 ml 300 ml 400 ml BalanceBalance 900 ml 300 ml 400 ml Results Results 24hrs Laboratory Tests Test 01/06/19 17:08 01/06/19 20:44 01/07/19 01:21 01/07/19 07:25 Bedside Glucose 357 H 253 H 245 H White Blood Count 8.4 # Red Blood Count 2.91 L Hemoglobin 8.1 L Hematocrit 26.0 L Mean Corpuscular 89.3 Volume Mean Corpuscular 27.8 L Hemoglobin Mean Corpuscular 31.2 L Hemoglobin Concent Red Cell 13.2 Distribution Width Platelet Count 121 L Mean Platelet Volume 11.4 H Immature 0.600 H Granulocytes % Neutrophils % 48.6 Lymphocytes % 40.0 Monocytes % 7.4 Eosinophils % 2.9 Basophils % 0.5 Nucleated Red Blood 0.0 Cells % Immature 0.050 H Granulocytes # Neutrophils # 4.1 Lymphocytes # 3.4 H Monocytes # 0.6 Eosinophils # 0.2 Basophils # 0.0 Nucleated Red Blood 0.0 Cells # Sodium Level 142 Potassium Level 4.6 Chloride Level 111 H Carbon Dioxide Level 23 Anion Gap 8 Blood Urea Nitrogen 47 H Creatinine 3.88 H Est Glomerular 15 L Filtrat Rate mL/min Glucose Level 172 Calcium Level 8.0 L Phosphorus Level 3.7 Magnesium Level 2.2 # Total Bilirubin 0.4 Direct Bilirubin 0.00 Indirect Bilirubin 0.4 Aspartate Amino 24 Transf (AST/SGOT) Alanine 30 Aminotransferase (AL T/SGPT) Alkaline Phosphatase 69 Total Protein 6.1 Albumin 3.0 L Globulin 3.10 Albumin/Globulin 0.96 Ratio Test 01/07/19 07:55 01/07/19 12:04 Bedside Glucose 177 268 H Medications Medication Current Medications Aspirin (Aspirin) 81 mg DAILY PO Last administered on 01/07/19at 08:07; Admin Dose 81 MG; Start 01/06/19 at 09:00 Atorvastatin Calcium (Lipitor) 10 mg QHS PO Last administered on 01/06/19at 20:42; Admin Dose 10 MG; Start 01/06/19 at 21:00 Carvedilol (Coreg) 25 mg BID PO Last administered on 01/07/19at 08:11; Admin Dose 25 MG; Start 01/06/19 at 09:00 Clopidogrel Bisulfate (plaVIX) 75 mg DAILY PO Last administered on 01/07/19at 08:07; Admin Dose 75 MG; Start 01/06/19 at 09:00 Gabapentin (Neurontin) 200 mg QHS PO Last administered on 01/06/19at 20:42; Admin Dose 200 MG; Start 01/06/19 at 21:00 Insulin Glargine (Lantus) 10 units QHS SC Last administered on 01/06/19at 20:48; Admin Dose 10 UNITS; Start 01/06/19 at 21:00 IV Flush (NS 3 ml) 3 ml PER PROTOCOL IV ; Start 01/06/19 at 03:00 Ondansetron HCl (Zofran Inj) 4 mg Q6H PRN IV NAUSEA/VOMITING; Start 01/06/19 at 03:00 Acetaminophen (Tylenol Tab) 650 mg Q6H PRN PO .PAIN 1-3 OR TEMP Last administered on 01/06/19at 08:54; Admin Dose 650 MG; Start 01/06/19 at 03:00 Docusate Sodium (Colace) 100 mg Q12H PRN PO .CONSTIPATION; Start 01/06/19 at 03:00 Bisacodyl (Dulcolax) 5 mg DAILY PRN PO .CONSTIPATION; Start 01/06/19 at 03:00 Nicotine (Nicoderm 14 Mg/ 24hr) 1 patch DAILY TRANSDERM Last administered on 01/07/19at 08:07; Admin Dose 1 PATCH; Start 01/06/19 at 09:00 Diagnostic Test (Pha) (Accu-Chek) 1 ea 02 XX ; Start 01/07/19 at 02:00 Insulin Aspart (Novolog Insulin Pen) NOVOLOG *MILD* ALGORITHM WITH MEALS BEDTIME SC Last administered on 01/07/19at 12:06; Admin Dose 4 UNIT; Start 01/06/19 at 08:00 Miscellaneous Information 1 ea NOTE XX ; Start 01/06/19 at 05:00 Glucose (Glutose) 15 gm Q15M PRN PO DECREASED GLUCOSE; Start 01/06/19 at 05:00 Glucose (Glutose) 22.5 gm Q15M PRN PO DECREASED GLUCOSE; Start 01/06/19 at 05:00 Dextrose (D50w Syringe) 25 ml Q15M PRN IV DECREASED GLUCOSE; Start 01/06/19 at 05:00 Dextrose (D50w Syringe) 50 ml Q15M PRN IV DECREASED GLUCOSE; Start 01/06/19 at 05:00 Glucagon (Glucagen) 1 mg Q15M PRN IM DECREASED GLUCOSE; Start 01/06/19 at 05:00 Glucose (Glutose) 15 gm Q15M PRN BUCCAL DECREASED GLUCOSE; Start 01/06/19 at 05:00 Piperacillin Sod/ Tazobactam Sod 50 ml @ 100 mls/hr Q8 IVPB Last administered on 01/07/19 13:42; Admin Dose 100 MLS/HR; Start 01/06/19 at 06:30 Clonidine (Catapres) 0.1 mg Q6H PRN PO SBP GREATER THAN 170; Start 01/06/19 at 08:30 Montelukast Sodium (Singulair) 10 mg HS PO Last administered on 01/06/19at 20: 42; Admin Dose 10 MG; Start 01/06/19 at 21:00 Loratadine (Claritin) 10 mg DAILY PO Last administered on 01/07/19at 08:07; Admin Dose 10 MG; Start 01/07/19 at 09:00 Ferrous Sulfate (Ferrous Sulfate (Ec)) 325 mg DAILY PO Last administered on 01/07/19at 08:07; Admin Dose 325 MG; Start 01/06/19 at 09:00 Insulin Aspart (Novolog Insulin Pen) 4 unit WITH MEALS SC Last administered on 01/07/19at 12:06; Admin Dose 4 UNIT; Start 01/06/19 at 17:35 Heparin Sodium (Porcine) (Heparin (5000 Units/1ml)) 5,000 unit BID SC Last administered on 01/07/19at 08:10; Admin Dose 5,000 UNIT; Start 01/06/19 at 21:00 Guaifenesin/ Dextromethorphan (Robitussin Dm Liquid Cup) 5 ml Q4H PRN PO Cough Last administered on 01/07/19 13:42; Admin Dose 5 ML; Start 01/07/19 at 13:00 Albuterol/ Ipratropium (Duoneb) 3 ml Q6HWA RESP THERAPY HHN ; Start 01/07/19 at 20:00; Status UNV Albuterol/ Ipratropium (Duoneb) 3 ml Q2H RESP THERAPY PRN HHN SHORTNESS OF BREATH; Start 01/07/19 at 14:30; Status UNV LAMONT FAIR NP Jan 07, 2019 14:17
[2019-01-07] MEDS: DOXYCYCLINE 100 MG TAB PO SCH ×2 (14:28→22:35)
[2019-01-07] MEDS ORDERED: ALBUTEROL/IPRATROPIUM (NEB) 3 ML AMP HHN PRN (14:30)
[2019-01-07] MEDS: ALBUTEROL/IPRATROPIUM (NEB) 3 ML AMP HHN SCH ×2 (14:41→19:46)
--- NOTE | 2019-01-07 18:56 | CONS ---
Assessment/Plan Assessment/Plan Assessment/Plan (Daily) 1. acute hyperkalemia - RESOLVED; due to PHIL - BUN/Cr - 47/3.88 2. Acute kidney injury on CKD IV due to sepsis and Hemodynamics 3. sepsis due to PNA and GI infection 4. Diarrhea- neg c- diff 5. possible Community acquired PNA 6. H/O DM II - Unstable BS - Endo consult will be appreciated 7. 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 H/o CHF 9. Anemia - Hgb 11.1 Plan: K - wnl; sp po kayexalate IV abx zosyn and azithromycin, Azithromycin has been stopped hold off on lasix for now pt has a full CKD work up done in clinic no need to repeat it he has CKD IV due to DM nephropahty Patient is seen in collaboration with DR Mirna Hodges. Plan of care staff. We will follow up. nad afebrile; resting in bed ; denies any complaints no events overnight family at bed side dw staff Consultation Date/Type/Reason Admit Date/Time Jan 06, 2019 at 03:01 Initial Consult Date 01/06/19 Type of Consult NEPHROLOGY Reason for Consultation PHIL ON CKD Requesting Provider: DMITRY PALMER Date/Time of Note DATE: 01/07/19 TIME: 18:54 24 HR Interval Summary Free Text/Dictation nad afebrile; resting in bed ; denies any complaints no events overnight family at bed side dw staff Detailed Summary Eyes: no complaints ENT: no complaints Respiratory: no complaints Cardiovascular: no complaints Gastrointestinal: no complaints Genitourinary: no complaints Musculoskeletal: no complaints Skin: no complaints Neurologic: no complaints Endocrine: no complaints Lymphatic: no complaints Psychological: nl mood/affect Immunologic: no complaints Exam/Review of Systems Exam Vitals Vital Signs Date Temp Pulse Resp B/P (MAP) Pulse Ox O2 O2 Flow FiO2 Time Delivery Rate 01/07/19 66 18 96 21 14:42 01/07/19 98.4 158/75 Room Air 08:00 (102) 01/06/19 2.0 03:00 Intake and Output 01/06/19 01/06/19 01/07/19 1515:00 23:00 07:00 IntakeIntake Total 900 ml 300 ml 400 ml BalanceBalance 900 ml 300 ml 400 ml Constitutional: alert, well developed Psych: nl mood/affect Head: atraumatic Eyes: nl lids, nl sclera ENMT: nl external ears & nose Neck: non-tender Respiratory: clear to auscultation Cardiovascular: nl pulses, other Gastrointestinal: soft, non-tender Musculoskeletal: nl extremities to inspection Extremities: normal pulses Neurological: nl speech Skin: other (no rash noted) Results Result Diagram: 01/07/1925 01/07/1925 Results 24hrs Laboratory Tests Test 01/06/19 20:44 01/07/19 01:21 01/07/19 07:25 01/07/19 07:55 Bedside Glucose 253 H 245 H 177 White Blood Count 8.4 # Red Blood Count 2.91 L Hemoglobin 8.1 L Hematocrit 26.0 L Mean Corpuscular 89.3 Volume Mean Corpuscular 27.8 L Hemoglobin Mean Corpuscular 31.2 L Hemoglobin Concent Red Cell 13.2 Distribution Width Platelet Count 121 L Mean Platelet Volume 11.4 H Immature 0.600 H Granulocytes % Neutrophils % 48.6 Lymphocytes % 40.0 Monocytes % 7.4 Eosinophils % 2.9 Basophils % 0.5 Nucleated Red Blood 0.0 Cells % Immature 0.050 H Granulocytes # Neutrophils # 4.1 Lymphocytes # 3.4 H Monocytes # 0.6 Eosinophils # 0.2 Basophils # 0.0 Nucleated Red Blood 0.0 Cells # Sodium Level 142 Potassium Level 4.6 Chloride Level 111 H Carbon Dioxide Level 23 Anion Gap 8 Blood Urea Nitrogen 47 H Creatinine 3.88 H Est Glomerular 15 L Filtrat Rate mL/min Glucose Level 172 Calcium Level 8.0 L Phosphorus Level 3.7 Magnesium Level 2.2 # Total Bilirubin 0.4 Direct Bilirubin 0.00 Indirect Bilirubin 0.4 Aspartate Amino 24 Transf (AST/SGOT) Alanine 30 Aminotransferase (AL T/SGPT) Alkaline Phosphatase 69 Total Protein 6.1 Albumin 3.0 L Globulin 3.10 Albumin/Globulin 0.96 Ratio Test 01/07/19 12:04 01/07/19 16:58 Bedside Glucose 268 H 194 Medications Medication Current Medications Aspirin (Aspirin) 81 mg DAILY PO Last administered on 01/07/19at 08:07; Admin Dose 81 MG; Start 01/06/19 at 09:00 Atorvastatin Calcium (Lipitor) 10 mg QHS PO Last administered on 01/06/19at 20:42; Admin Dose 10 MG; Start 01/06/19 at 21:00 Carvedilol (Coreg) 25 mg BID PO Last administered on 01/07/19 08:11; Admin Dose 25 MG; Start 01/06/19 at 09:00 Clopidogrel Bisulfate (plaVIX) 75 mg DAILY PO Last administered on 01/07/19 08:07; Admin Dose 75 MG; Start 01/06/19 at 09:00 Gabapentin (Neurontin) 200 mg QHS PO Last administered on 01/06/19at 20:42; Admin Dose 200 MG; Start 01/06/19 at 21:00 Insulin Glargine (Lantus) 10 units QHS SC Last administered on 01/06/19 20:48; Admin Dose 10 UNITS; Start 01/06/19 at 21:00 IV Flush (NS 3 ml) 3 ml PER PROTOCOL IV ; Start 01/06/19 at 03:00 Ondansetron HCl (Zofran Inj) 4 mg Q6H PRN IV NAUSEA/VOMITING; Start 01/06/19 at 03:00 Acetaminophen (Tylenol Tab) 650 mg Q6H PRN PO .PAIN 1-3 OR TEMP Last administered on 01/06/19at 08:54; Admin Dose 650 MG; Start 01/06/19 at 03:00 Docusate Sodium (Colace) 100 mg Q12H PRN PO .CONSTIPATION; Start 01/06/19 at 03:00 Bisacodyl (Dulcolax) 5 mg DAILY PRN PO .CONSTIPATION; Start 01/06/19 at 03:00 Nicotine (Nicoderm 14 Mg/ 24hr) 1 patch DAILY TRANSDERM Last administered on 01/07/19 08:07; Admin Dose 1 PATCH; Start 01/06/19 at 09:00 Diagnostic Test (Pha) (Accu-Chek) 1 ea 02 XX ; Start 01/07/19 at 02:00 Insulin Aspart (Novolog Insulin Pen) NOVOLOG *MILD* ALGORITHM WITH MEALS BEDTIME SC Last administered on 01/07/19 17:21; Admin Dose 2 UNIT; Start 01/06/19 at 08:00 Miscellaneous Information 1 ea NOTE XX ; Start 01/06/19 at 05:00 Glucose (Glutose) 15 gm Q15M PRN PO DECREASED GLUCOSE; Start 01/06/19 at 05:00 Glucose (Glutose) 22.5 gm Q15M PRN PO DECREASED GLUCOSE; Start 01/06/19 at 05:00 Dextrose (D50w Syringe) 25 ml Q15M PRN IV DECREASED GLUCOSE; Start 01/06/19 at 05:00 Dextrose (D50w Syringe) 50 ml Q15M PRN IV DECREASED GLUCOSE; Start 01/06/19 at 05:00 Glucagon (Glucagen) 1 mg Q15M PRN IM DECREASED GLUCOSE; Start 01/06/19 at 05:00 Glucose (Glutose) 15 gm Q15M PRN BUCCAL DECREASED GLUCOSE; Start 01/06/19 at 05:00 Piperacillin Sod/ Tazobactam Sod 50 ml @ 100 mls/hr Q8 IVPB Last administered on 01/07/19 13:42; Admin Dose 100 MLS/HR; Start 01/06/19 at 06:30 Clonidine (Catapres) 0.1 mg Q6H PRN PO SBP GREATER THAN 170; Start 01/06/19 at 08:30 Montelukast Sodium (Singulair) 10 mg HS PO Last administered on 01/06/19 20:42; Admin Dose 10 MG; Start 01/06/19 at 21:00 Loratadine (Claritin) 10 mg DAILY PO Last administered on 01/07/19 08:07; Admin Dose 10 MG; Start 01/07/19 at 09:00 Ferrous Sulfate (Ferrous Sulfate (Ec)) 325 mg DAILY PO Last administered on 01/07/19 08:07; Admin Dose 325 MG; Start 01/06/19 at 09:00 Insulin Aspart (Novolog Insulin Pen) 4 unit WITH MEALS SC Last administered on 01/07/19 17:20; Admin Dose 4 UNIT; Start 01/06/19 at 17:35 Heparin Sodium (Porcine) (Heparin (5000 Units/1ml)) 5,000 unit BID SC Last administered on 01/07/19 08:10; Admin Dose 5,000 UNIT; Start 01/06/19 at 21:00 Guaifenesin/ Dextromethorphan (Robitussin Dm Liquid Cup) 5 ml Q4H PRN PO Cough Last administered on 01/07/19 13:42; Admin Dose 5 ML; Start 01/07/19 at 13:00 Albuterol/ Ipratropium (Duoneb) 3 ml Q6HWA RESP THERAPY HHN Last administered on 01/07/19at 14:41; Admin Dose 3 ML; Start 01/07/19 at 14:00 Albuterol/ Ipratropium (Duoneb) 3 ml Q2H RESP THERAPY PRN HHN SHORTNESS OF BREATH; Start 01/07/19 at 14:30 Doxycycline Hyclate (Vibramycin) 100 mg BID PO Last administered on 01/07/19at 14:28; Admin Dose 100 MG; Start 01/07/19 at 14:30 TONIA WATKINS Jan 07, 2019 18:56
[2019-01-07 20:27] VITALS: BP 131/62; PULSE 76; RESP 18
[2019-01-07] MEDS: MONTELUKAST 10 MG TAB PO SCH (20:46)
[2019-01-07] MEDS: ATORVASTATIN 10 MG TAB PO SCH (20:46)
[2019-01-07] MEDS: GABAPENTIN 100 MG CAP PO SCH (20:47)
[2019-01-07] MEDS: INSULIN GLARGINE [LANTus] (100 UNITS/ML) SYG SC SCH (20:53)
[2019-01-08 02:00] VITALS: BP 119/56; PULSE 75; RESP 18
[2019-01-08] MEDS: ACCU-CHEK XX SCH (02:00)
[2019-01-08] MEDS: PIPER-TAZO 2.25 GM (PMX) 50 ML IVPB SCH (05:40)
[2019-01-08 07:39] VITALS: BP 134/61; PULSE 72; RESP 19
[2019-01-08] MEDS: ALBUTEROL/IPRATROPIUM (NEB) 3 ML AMP HHN SCH ×3 (07:53→20:12)
[2019-01-08] MEDS: DOXYCYCLINE 100 MG TAB PO SCH (08:21)
[2019-01-08] MEDS: NICOTINE (14 MG/24 HR) PATCH TRANSDERM SCH (08:21)
[2019-01-08] MEDS: CLOPIDOGREL 75 MG TAB PO SCH (08:21)
[2019-01-08] MEDS: FERROUS SULFATE (EC) 325 MG TAB PO SCH (08:22)
[2019-01-08] MEDS: ASPIRIN 81 MG TAB PO SCH (08:22)
[2019-01-08] MEDS: LORATADINE 10 MG TAB PO SCH (08:22)
[2019-01-08] MEDS: INSULIN ASPART [NOVOLOG] 3 ML PEN SC SCH ×7 (08:25→20:26)
[2019-01-08] MEDS: HEPARIN 5,000 UNIT/1 ML VIAL SC SCH (08:27)
[2019-01-08] MEDS ORDERED: NA POLYST SULFON 15 GM/60 ML BTL PO ONE (11:30)
--- NOTE | 2019-01-08 12:23 | PN ---
Date/Time of Note Date/Time of Note DATE: 01/08/19 TIME: 12:20 Assessment/Plan VTE Prophylaxis Risk score (from Ns)>0 risk: 4 SCD applied (from Ns): No SCD contraindicated: other Pharmacological prophylaxis: NA/contraindicated Pharm contraindication: thrombocytopenia, other (Worsening anemia.) Lines/Catheters IV [facility] [place] [facility] Assessment/Plan Hospital Course SUBJECTIVE: Denies any dyspnea at this time. Continues to complain of cough. Patient eating high carbohydrate diet brought in by family/friends. Therefore, blood sugars are running high. OBJECTIVE: Physical Exam General: Adequately build 68 year-old male lying in bed in no apparent distress. HEENT: Normocephalic, atraumatic. Eyes: Anicteric sclerae, conjunctivae clear. ENT: Nasal septum midline, oral mucosa moist. Neck supple, no JVD noticed. Respiratory: Bilaterally diminished breath sounds. No use of accessory muscles of respiration. B/L wheezing. Cardiovascular: S1, S2 heard. Regular rate and rhythm. Abdomen: Soft, nontender, and nondistended. Bowel sounds positive in all 4 quadrants. Genitourinary: Deferred. Extremities: No cyanosis, no clubbing, no edema. Peripheral pulses palpable. Neurologic: Cranial nerves II through XII grossly intact. The patient is awake, alert, and oriented. Skin: Normal skin turgor. No skin rashes. Labs & Vitals per chart ASSESSMENT & PLAN 68-year-old male with comorbidities including hypertension, diabetes mellitus type 2, coronary artery disease, ischemic cardiomyopathy, chronic kidney disease, and nicotine use, who presented to the emergency department with complaints of fever and cough who was found to have evidence of underlying sepsis with leukocytosis, tachycardia, tachypnea, and febrile illness with evidence of underlying lung infiltrates, who was admitted to inpatient setting for further treatment and evaluation. 1. S/P sepsis with leukocytosis, tachycardia, tachypnea, and febrile illness, present on admission secondary to underlying community-acquired pneumonia. Continue antimicrobials. Pancultures negative so far. 2. Community-acquired pneumonia. Chest CT findings noted. Continue appropriate antimicrobials. 3. Ischemic cardiomyopathy. Ejection fraction on 2D echocardiogram done on March 2016 25 to 30%. Continue beta-blockers. EUGENIE inhibitors not used because of underlying suboptimal renal function. 4. History of CAD. Continue antiplatelet therapy. Continue statins. 5. Chronic kidney disease. Being followed by nephrology. Monitor BUN and creatinine closely. 6. Thrombocytopenia. Possibly from Zosyn. DC Zosyn. 7. Dyslipidemia. Continue statins. 8. Normocytic anemia. Most probably anemia chronic disease. Monitor H&H closely. Hold heparin because of drop in H&H. 9. Fluids, electrolytes, and nutrition. Carbohydrate controlled, low-cholesterol diet. 10. DVT prophylaxis. Subcutaneous heparin (hold). 11. Plan. Continue antimicrobials. Continue inhaled bronchodilators. Hold heparin. DC Zosyn. Correct hyperkalemia. Await clinical improvement and improvement in H&H before discharging the patient home. The patient was seen in collaboration with Dr. Carrillo. Result Diagram: 01/08/19 1132 01/08/19 0542 Results 24hrs Laboratory Tests Test 01/07/19 16:58 01/07/19 20:49 01/08/19 01:32 01/08/19 05:42 Bedside Glucose 194 190 281 H White Blood Count 6.1 # Red Blood Count 2.74 L Hemoglobin 7.7 L Hematocrit 24.1 L Mean Corpuscular 88.0 Volume Mean Corpuscular 28.1 L Hemoglobin Mean Corpuscular 32.0 Hemoglobin Concent Red Cell 13.3 Distribution Width Platelet Count 119 L Mean Platelet Volume 10.8 H Immature 0.500 H Granulocytes % Neutrophils % 52.5 Lymphocytes % 34.1 Monocytes % 8.1 Eosinophils % 4.3 Basophils % 0.5 Nucleated Red Blood 0.0 Cells % Immature 0.030 Granulocytes # Neutrophils # 3.2 Lymphocytes # 2.1 Monocytes # 0.5 Eosinophils # 0.3 Basophils # 0.0 Nucleated Red Blood 0.0 Cells # Sodium Level 142 Potassium Level 5.2 H Chloride Level 113 H Carbon Dioxide Level 22 Anion Gap 7 Blood Urea Nitrogen 46 H Creatinine 3.61 H Est Glomerular 17 L Filtrat Rate mL/min Glucose Level 206 Calcium Level 8.1 L Phosphorus Level 3.6 Magnesium Level 2.0 Total Bilirubin 0.2 Direct Bilirubin 0.00 Indirect Bilirubin 0.2 Aspartate Amino 28 Transf (AST/SGOT) Alanine 35 Aminotransferase (AL T/SGPT) Alkaline Phosphatase 70 Total Protein 6.0 L Albumin 3.0 L Globulin 3.00 Albumin/Globulin 1.00 Ratio Test 01/08/19 08:10 01/08/19 11:32 01/08/19 11:55 Bedside Glucose 202 232 H Hemoglobin 7.3 L Hematocrit 23.0 L Exam/Review of Systems Exam Vitals Vital Signs Date Temp Pulse Resp B/P (MAP) Pulse Ox O2 O2 Flow FiO2 Time Delivery Rate 01/08/19 70 16 95 21 07:57 01/08/19 98.3 134/61 Room Air 07:39 (85) 01/06/19 2.0 03:00 Intake and Output 01/07/19 01/07/19 01/08/19 1515:00 23:00 07:00 IntakeIntake Total 950 ml 460 ml 150 ml OutputOutput Total 200 ml 300 ml BalanceBalance 750 ml 460 ml -150 ml Results Results 24hrs Laboratory Tests Test 01/07/19 16:58 01/07/19 20:49 01/08/19 01:32 01/08/19 05:42 Bedside Glucose 194 190 281 H White Blood Count 6.1 # Red Blood Count 2.74 L Hemoglobin 7.7 L Hematocrit 24.1 L Mean Corpuscular 88.0 Volume Mean Corpuscular 28.1 L Hemoglobin Mean Corpuscular 32.0 Hemoglobin Concent Red Cell 13.3 Distribution Width Platelet Count 119 L Mean Platelet Volume 10.8 H Immature 0.500 H Granulocytes % Neutrophils % 52.5 Lymphocytes % 34.1 Monocytes % 8.1 Eosinophils % 4.3 Basophils % 0.5 Nucleated Red Blood 0.0 Cells % Immature 0.030 Granulocytes # Neutrophils # 3.2 Lymphocytes # 2.1 Monocytes # 0.5 Eosinophils # 0.3 Basophils # 0.0 Nucleated Red Blood 0.0 Cells # Sodium Level 142 Potassium Level 5.2 H Chloride Level 113 H Carbon Dioxide Level 22 Anion Gap 7 Blood Urea Nitrogen 46 H Creatinine 3.61 H Est Glomerular 17 L Filtrat Rate mL/min Glucose Level 206 Calcium Level 8.1 L Phosphorus Level 3.6 Magnesium Level 2.0 Total Bilirubin 0.2 Direct Bilirubin 0.00 Indirect Bilirubin 0.2 Aspartate Amino 28 Transf (AST/SGOT) Alanine 35 Aminotransferase (AL T/SGPT) Alkaline Phosphatase 70 Total Protein 6.0 L Albumin 3.0 L Globulin 3.00 Albumin/Globulin 1.00 Ratio Test 01/08/19 08:10 01/08/19 11:32 01/08/19 11:55 Bedside Glucose 202 232 H Hemoglobin 7.3 L Hematocrit 23.0 L Medications Medication Current Medications Aspirin (Aspirin) 81 mg DAILY PO Last administered on 01/08/19 08:22; Admin Dose 81 MG; Start 01/06/19 at 09:00 Atorvastatin Calcium (Lipitor) 10 mg QHS PO Last administered on 01/07/19 20:46; Admin Dose 10 MG; Start 01/06/19 at 21:00 Carvedilol (Coreg) 25 mg BID PO Last administered on 01/08/19 08:22; Admin Dose 25 MG; Start 01/06/19 at 09:00 Clopidogrel Bisulfate (plaVIX) 75 mg DAILY PO Last administered on 01/08/19 08:21; Admin Dose 75 MG; Start 01/06/19 at 09:00 Gabapentin (Neurontin) 200 mg QHS PO Last administered on 01/07/19 20:47; Admin Dose 200 MG; Start 01/06/19 at 21:00 Insulin Glargine (Lantus) 10 units QHS SC Last administered on 01/07/19 20:53; Admin Dose 10 UNITS; Start 01/06/19 at 21:00 IV Flush (NS 3 ml) 3 ml PER PROTOCOL IV ; Start 01/06/19 at 03:00 Ondansetron HCl (Zofran Inj) 4 mg Q6H PRN IV NAUSEA/VOMITING; Start 01/06/19 at 03:00 Acetaminophen (Tylenol Tab) 650 mg Q6H PRN PO .PAIN 1-3 OR TEMP Last administered on 01/06/19at 08:54; Admin Dose 650 MG; Start 01/06/19 at 03:00 Docusate Sodium (Colace) 100 mg Q12H PRN PO .CONSTIPATION; Start 01/06/19 at 03:00 Bisacodyl (Dulcolax) 5 mg DAILY PRN PO .CONSTIPATION; Start 01/06/19 at 03:00 Diagnostic Test (Pha) (Accu-Chek) 1 ea 02 XX ; Start 01/07/19 at 02:00 Insulin Aspart (Novolog Insulin Pen) NOVOLOG *MILD* ALGORITHM WITH MEALS BEDTIME SC Last administered on 01/08/19 11:58; Admin Dose 3 UNIT; Start at 08:00 Miscellaneous Information 1 ea NOTE XX ; Start 01/06/19 at 05:00 Glucose (Glutose) 15 gm Q15M PRN PO DECREASED GLUCOSE; Start 01/06/19 at 05:00 Glucose (Glutose) 22.5 gm Q15M PRN PO DECREASED GLUCOSE; Start 01/06/19 at 05:00 Dextrose (D50w Syringe) 25 ml Q15M PRN IV DECREASED GLUCOSE; Start 01/06/19 at 05:00 Dextrose (D50w Syringe) 50 ml Q15M PRN IV DECREASED GLUCOSE; Start 01/06/19 at 05:00 Glucagon (Glucagen) 1 mg Q15M PRN IM DECREASED GLUCOSE; Start 01/06/19 at 05:00 Glucose (Glutose) 15 gm Q15M PRN BUCCAL DECREASED GLUCOSE; Start 01/06/19 at 05:00 Piperacillin Sod/ Tazobactam Sod 50 ml @ 100 mls/hr Q8 IVPB Last administered on 01/08/19at 05:40; Admin Dose 100 MLS/HR; Start 01/06/19 at 06:30 Clonidine (Catapres) 0.1 mg Q6H PRN PO SBP GREATER THAN 170; Start 01/06/19 at 08:30 Montelukast Sodium (Singulair) 10 mg HS PO Last administered on 01/07/19at 20:46; Admin Dose 10 MG; Start 01/06/19 at 21:00 Loratadine (Claritin) 10 mg DAILY PO Last administered on 01/08/19at 08:22; Admin Dose 10 MG; Start 01/07/19 at 09:00 Ferrous Sulfate (Ferrous Sulfate (Ec)) 325 mg DAILY PO Last administered on 01/08/19 08:22; Admin Dose 325 MG; Start 01/06/19 at 09:00 Insulin Aspart (Novolog Insulin Pen) 4 unit WITH MEALS SC Last administered on 01/08/19at 11:57; Admin Dose 4 UNIT; Start 01/06/19 at 17:35 Heparin Sodium (Porcine) (Heparin (5000 Units/1ml)) 5,000 unit BID SC Last administered on 01/08/19at 08:27; Admin Dose 5,000 UNIT; Start 01/06/19 at 21:00; Status Hold Guaifenesin/ Dextromethorphan (Robitussin Dm Liquid Cup) 5 ml Q4H PRN PO Cough Last administered on 01/07/19at 13:42; Admin Dose 5 ML; Start 01/07/19 at 13:00 Albuterol/ Ipratropium (Duoneb) 3 ml Q6HWA RESP THERAPY HHN Last administered on 01/08/19at 07:53; Admin Dose 3 ML; Start 01/07/19 at 14:00 Albuterol/ Ipratropium (Duoneb) 3 ml Q2H RESP THERAPY PRN HHN SHORTNESS OF BREATH; Start 01/07/19 at 14:30 Doxycycline Hyclate (Vibramycin) 100 mg BID PO Last administered on 01/08/19at 08:21; Admin Dose 100 MG; Start 01/07/19 at 14:30 LAMONT FAIR NP Jan 08, 2019 12:23
[2019-01-08 14:00] VITALS: BP 164/77; PULSE 73; RESP 18
[2019-01-08] MEDS: LEVOFLOXACIN 750 MG TABLET PO SCH (14:13)
--- NOTE | 2019-01-08 15:19 | CONS ---
Assessment/Plan Assessment/Plan Assessment/Plan (Daily) 1. acute hyperkalemia due to PHIL ; BUN/Cr trended down to 46/3.61 today - kayexalate given - Fu am BMP 2. Acute kidney injury on CKD IV due to sepsis and Hemodynamics 3. sepsis due to PNA and GI infection 4. Diarrhea- neg c- diff 5. possible Community acquired PNA 6. H/O DM II - unstable - Endo consult will be appreciated 7. 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 H/o CHF 9. Anemia - Hgb 7.3 - monitor CBC - transfusion PRN - epogen Plan: K 5.2- po kayexalate given; fu am BMP IV abx zosyn and azithromycin, Azithromycin has been stopped hold off on lasix for now pt has a full CKD work up done in clinic no need to repeat it he has CKD IV due to DM nephropahty Patient is seen in collaboration with DR Mirna Hodges. Plan of care staff. We will follow up. Consultation Date/Type/Reason Admit Date/Time Jan 06, 2019 at 03:01 Initial Consult Date 01/06/19 Type of Consult NEPHROLOGY Reason for Consultation PHIL ON CKD Requesting Provider: DMITRY PALMER Date/Time of Note DATE: 01/08/19 TIME: 15:16 24 HR Interval Summary Free Text/Dictation nad afebrile; resting in bed ; denies any complaints no events overnight K - 5.2, Kayexalate given Hgb - 7.3; monitor CBC, Epogen dw staff Detailed Summary Eyes: no complaints ENT: no complaints Respiratory: no complaints Cardiovascular: no complaints Gastrointestinal: no complaints Genitourinary: no complaints Musculoskeletal: no complaints Skin: no complaints Neurologic: no complaints Endocrine: no complaints Lymphatic: no complaints Psychological: nl mood/affect Immunologic: no complaints Exam/Review of Systems Exam Vitals Vital Signs Date Temp Pulse Resp B/P (MAP) Pulse Ox O2 O2 Flow FiO2 Time Delivery Rate 01/08/19 77 20 97 21 14:52 01/08/19 98.8 164/77 Room Air 14:00 (106) 01/06/19 2.0 03:00 Intake and Output 01/07/19 01/07/19 01/08/19 1515:00 23:00 07:00 IntakeIntake Total 950 ml 460 ml 150 ml OutputOutput Total 200 ml 300 ml BalanceBalance 750 ml 460 ml -150 ml Constitutional: alert, well developed Psych: nl mood/affect Head: normocephalic Eyes: nl lids, nl sclera ENMT: nl external ears & nose Neck: non-tender Respiratory: clear to auscultation Cardiovascular: nl pulses, other ([id number]) Gastrointestinal: soft, non-tender Musculoskeletal: nl extremities to inspection Extremities: normal pulses Neurological: nl mental status, nl speech Skin: nl turgor Lymph: nontender Results Result Diagram: 01/08/19 1132 01/08/19 0542 Results 24hrs Laboratory Tests Test 01/07/19 16:58 01/07/19 20:49 01/08/19 01:32 01/08/19 05:42 Bedside Glucose 194 190 281 H White Blood Count 6.1 # Red Blood Count 2.74 L Hemoglobin 7.7 L Hematocrit 24.1 L Mean Corpuscular 88.0 Volume Mean Corpuscular 28.1 L Hemoglobin Mean Corpuscular 32.0 Hemoglobin Concent Red Cell 13.3 Distribution Width Platelet Count 119 L Mean Platelet Volume 10.8 H Immature 0.500 H Granulocytes % Neutrophils % 52.5 Lymphocytes % 34.1 Monocytes % 8.1 Eosinophils % 4.3 Basophils % 0.5 Nucleated Red Blood 0.0 Cells % Immature 0.030 Granulocytes # Neutrophils # 3.2 Lymphocytes # 2.1 Monocytes # 0.5 Eosinophils # 0.3 Basophils # 0.0 Nucleated Red Blood 0.0 Cells # Sodium Level 142 Potassium Level 5.2 H Chloride Level 113 H Carbon Dioxide Level 22 Anion Gap 7 Blood Urea Nitrogen 46 H Creatinine 3.61 H Est Glomerular 17 L Filtrat Rate mL/min Glucose Level 206 Calcium Level 8.1 L Phosphorus Level 3.6 Magnesium Level 2.0 Total Bilirubin 0.2 Direct Bilirubin 0.00 Indirect Bilirubin 0.2 Aspartate Amino 28 Transf (AST/SGOT) Alanine 35 Aminotransferase (AL T/SGPT) Alkaline Phosphatase 70 Total Protein 6.0 L Albumin 3.0 L Globulin 3.00 Albumin/Globulin 1.00 Ratio Test 01/08/19 08:10 01/08/19 11:32 01/08/19 11:55 Bedside Glucose 202 232 H Hemoglobin 7.3 L Hematocrit 23.0 L Medications Medication Current Medications Aspirin (Aspirin) 81 mg DAILY PO Last administered on 01/08/19 08:22; Admin Dose 81 MG; Start 01/06/19 at 09:00 Atorvastatin Calcium (Lipitor) 10 mg QHS PO Last administered on 01/07/19 20:46; Admin Dose 10 MG; Start 01/06/19 at 21:00 Carvedilol (Coreg) 25 mg BID PO Last administered on 01/08/19 08:22; Admin Dose 25 MG; Start 01/06/19 at 09:00 Clopidogrel Bisulfate (plaVIX) 75 mg DAILY PO Last administered on 01/08/19 08:21; Admin Dose 75 MG; Start 01/06/19 at 09:00 Gabapentin (Neurontin) 200 mg QHS PO Last administered on 01/07/19 20:47; Admin Dose 200 MG; Start 01/06/19 at 21:00 Insulin Glargine (Lantus) 10 units QHS SC Last administered on 01/07/19 20:53; Admin Dose 10 UNITS; Start 01/06/19 at 21:00 IV Flush (NS 3 ml) 3 ml PER PROTOCOL IV ; Start 01/06/19 at 03:00 Ondansetron HCl (Zofran Inj) 4 mg Q6H PRN IV NAUSEA/VOMITING; Start 01/06/19 at 03:00 Acetaminophen (Tylenol Tab) 650 mg Q6H PRN PO .PAIN 1-3 OR TEMP Last administered on 01/06/19 08:54; Admin Dose 650 MG; Start 01/06/19 at 03:00 Docusate Sodium (Colace) 100 mg Q12H PRN PO .CONSTIPATION; Start 01/06/19 at 03:00 Bisacodyl (Dulcolax) 5 mg DAILY PRN PO .CONSTIPATION; Start 01/06/19 at 03:00 Diagnostic Test (Pha) (Accu-Chek) 1 ea 02 XX ; Start 01/07/19 at 02:00 Insulin Aspart (Novolog Insulin Pen) NOVOLOG *MILD* ALGORITHM WITH MEALS BEDTIME SC Last administered on 01/08/19at 11:58; Admin Dose 3 UNIT; Start 01/06/19 at 08:00 Miscellaneous Information 1 ea NOTE XX ; Start 01/06/19 at 05:00 Glucose (Glutose) 15 gm Q15M PRN PO DECREASED GLUCOSE; Start 01/06/19 at 05:00 Glucose (Glutose) 22.5 gm Q15M PRN PO DECREASED GLUCOSE; Start 01/06/19 at 05:00 Dextrose (D50w Syringe) 25 ml Q15M PRN IV DECREASED GLUCOSE; Start 01/06/19 at 05:00 Dextrose (D50w Syringe) 50 ml Q15M PRN IV DECREASED GLUCOSE; Start 01/06/19 at 05:00 Glucagon (Glucagen) 1 mg Q15M PRN IM DECREASED GLUCOSE; Start 01/06/19 at 05:00 Glucose (Glutose) 15 gm Q15M PRN BUCCAL DECREASED GLUCOSE; Start 01/06/19 at 05:00 Clonidine (Catapres) 0.1 mg Q6H PRN PO SBP GREATER THAN 170; Start 01/06/19 at 08:30 Montelukast Sodium (Singulair) 10 mg HS PO Last administered on 01/07/19at 20:46; Admin Dose 10 MG; Start 01/06/19 at 21:00 Loratadine (Claritin) 10 mg DAILY PO Last administered on 01/08/19at 08:22; Admin Dose 10 MG; Start 01/07/19 at 09:00 Ferrous Sulfate (Ferrous Sulfate (Ec)) 325 mg DAILY PO Last administered on 01/08/19 08:22; Admin Dose 325 MG; Start 01/06/19 at 09:00 Insulin Aspart (Novolog Insulin Pen) 4 unit WITH MEALS SC Last administered on 01/08/19 11:57; Admin Dose 4 UNIT; Start 01/06/19 at 17:35 Heparin Sodium (Porcine) (Heparin (5000 Units/1ml)) 5,000 unit BID SC Last administered on 01/08/19 08:27; Admin Dose 5,000 UNIT; Start 01/06/19 at 21:00; Status Hold Guaifenesin/ Dextromethorphan (Robitussin Dm Liquid Cup) 5 ml Q4H PRN PO Cough Last administered on 01/07/19at 13:42; Admin Dose 5 ML; Start 01/07/19 at 13:00 Albuterol/ Ipratropium (Duoneb) 3 ml Q6HWA RESP THERAPY HHN Last administered on 01/08/19 14:52; Admin Dose 3 ML; Start 01/07/19 at 14:00 Albuterol/ Ipratropium (Duoneb) 3 ml Q2H RESP THERAPY PRN HHN SHORTNESS OF BREATH; Start 01/07/19 at 14:30 Levofloxacin (Levaquin) 750 mg Q48H PO Last administered on 01/08/19at 14:13; Admin Dose 750 MG; Start 01/08/19 at 13:30 TONIA WATKINS Jan 08, 2019 15:19
[2019-01-08 20:00] VITALS: BP 168/82; PULSE 79; RESP 17
[2019-01-08] MEDS: MONTELUKAST 10 MG TAB PO SCH (20:23)
[2019-01-08] MEDS: ATORVASTATIN 10 MG TAB PO SCH (20:23)
[2019-01-08] MEDS: GABAPENTIN 100 MG CAP PO SCH (20:23)
[2019-01-08] MEDS: INSULIN GLARGINE [LANTus] (100 UNITS/ML) SYG SC SCH (20:26)
[2019-01-09 02:00] VITALS: BP 138/68; PULSE 74; RESP 16
[2019-01-09] MEDS: ACCU-CHEK XX SCH (02:00)
[2019-01-09] MEDS: INSULIN ASPART [NOVOLOG] 3 ML PEN SC SCH ×7 (07:35→20:35)
[2019-01-09] MEDS: ALBUTEROL/IPRATROPIUM (NEB) 3 ML AMP HHN SCH ×3 (08:02→19:37)
[2019-01-09 08:04] VITALS: BP 164/74; PULSE 72; RESP 18
[2019-01-09] MEDS: CLOPIDOGREL 75 MG TAB PO SCH (08:31)
[2019-01-09] MEDS: ASPIRIN 81 MG TAB PO SCH (08:31)
[2019-01-09] MEDS: LORATADINE 10 MG TAB PO SCH (08:31)
[2019-01-09] MEDS: FERROUS SULFATE (EC) 325 MG TAB PO SCH (08:31)
--- NOTE | 2019-01-09 10:35 | PDOCDIS ---
Discharge Instructions DIAGNOSIS Discharge Diagnosis 1. S/P sepsis with leukocytosis, tachycardia, tachypnea, and febrile illness, present on admission secondary to underlying community-acquired pneumonia. 2. Community-acquired pneumonia. 3. Ischemic cardiomyopathy. 4. History of CAD. 5. Chronic kidney disease. 6. Thrombocytopenia. 7. Dyslipidemia. 8. Normocytic anemia. CONDITION [id number] Patient Condition: [id number] Stable HOME CARE INSTRUCTIONS: [id number] Diet Instructions: [id number] Low Fat /Cholesterol [id number] Special Diet: [id number] carbohydrate controlled FOLLOW UP/APPOINTMENTS Follow-up Plan Follow up with Dr. Antwon Hodges in one week Office Address Antwon Hodges M.D., [address] [address] Office CAROLINE CHRISTIANSEN NP Jan 09, 2019 10:35
[2019-01-09] MEDS ORDERED: SOD CHLORIDE 0.9% 250 ML IV* ONE (10:40)
[2019-01-09 12:17] VITALS: BP 140/72
[2019-01-09] MEDS: AMLODIPINE 5 MG TAB PO SCH (12:17)
[2019-01-09 14:05] VITALS: BP 160/72; PULSE 67
--- NOTE | 2019-01-09 14:23 | PN ---
Date/Time of Note Date/Time of Note DATE: 01/09/19 TIME: 14:15 Assessment/Plan VTE Pro[place]axis [place] [facility] [place]: 4 [place]CD applied [place] [facility] [place] Yes Pharmacological prophylaxis: NA/contraindicated Pharm contraindication: other (anemia) Lines/Catheters IV C[facility]ter Type (from [facility] Saline Lock Assessment/Plan Hospital Course Assessment/Plan # Sepsis from community acquired pneumonia Continue antibiotics Appears to be improving at present. #History of ischemic cardia myopathy Continue beta-asha EUGENIE inhibitor on hold due to renal dysfunction #History of CAD Continue antiplatelet Continue statin #CKD Director Of Ancillary Services on panel #Thrombocytopenia Suspect from Zosyn Monitor platelets #Anemia Suspect of chronic disease Transfuse 1 PRBC today Disposition and plan. Plan to transfuse 1 PRBC today. We will follow-up on H&H. Continue antibiotics. DC planning Discussed POC with Dr. Juarez Result Diagram: 01/09/19 0538 01/09/19 0538 Results 24hrs Laboratory Tests Test 01/08/19 17:16 01/08/19 20:18 01/09/19 02:18 01/09/19 05:38 Bedside Glucose 140 223 H 113 White Blood Count 5.7 Red Blood Count 2.66 L Hemoglobin 7.4 L Hematocrit 23.9 L Mean Corpuscular 89.8 Volume Mean Corpuscular 27.8 L Hemoglobin Mean Corpuscular 31.0 L Hemoglobin Concent Red Cell 13.1 Distribution Width Platelet Count 142 Mean Platelet Volume 10.7 H Immature 1.200 H Granulocytes % Neutrophils % 46.1 Lymphocytes % 40.9 Monocytes % 7.3 Eosinophils % 4.0 Basophils % 0.5 Nucleated Red Blood 0.0 Cells % Immature 0.070 H Granulocytes # Neutrophils # 2.6 Lymphocytes # 2.4 Monocytes # 0.4 Eosinophils # 0.2 Basophils # 0.0 Nucleated Red Blood 0.0 Cells # Sodium Level 146 H Potassium Level 4.8 Chloride Level 116 H Carbon Dioxide Level 22 Anion Gap 8 Blood Urea Nitrogen 43 H Creatinine 3.25 H Est Glomerular 19 L Filtrat Rate mL/min Glucose Level 89 # Calcium Level 8.5 Phosphorus Level 3.8 Magnesium Level 1.8 Iron Level 58 Total Iron Binding 239 L Capacity Percent Iron 24 Saturation Ferritin 63.1 Total Bilirubin 0.3 Direct Bilirubin 0.00 Indirect Bilirubin 0.3 Aspartate Amino 26 Transf (AST/SGOT) Alanine 31 Aminotransferase (AL T/SGPT) Alkaline Phosphatase 68 Total Protein 6.0 L Albumin 2.9 L Globulin 3.10 Albumin/Globulin 0.93 Ratio Test 01/09/19 08:07 01/09/19 12:16 Bedside Glucose 106 177 Subjective 24 Hr Interval Summary Free Text/Dictation reports better breathing but still coughing Exam/Review of Systems Exam Vitals Vital Signs Date Temp Pulse Resp B/P (MAP) Pulse Ox O2 O2 Flow FiO2 Time Delivery Rate 01/09/19 67 160/72 14:05 (101) 01/09/19 20 96 21 13:52 01/09/19 98.2 08:04 01/08/19 Room Air 14:00 01/06/19 2.0 03:00 Intake and Output 01/08/19 01/08/19 01/09/19 1515:00 23:00 07:00 IntakeIntake Total 480 ml 1300 ml OutputOutput Total 600 ml BalanceBalance 480 ml 700 ml Constitutional: alert, oriented Psych: nl mood/affect Head: normocephalic Eyes: nl conjunctiva Neck: supple, non-tender Respiratory: other (no obvious wheezing/rhonchi) Gastrointestinal: soft, non-tender Musculoskeletal: No swelling Neurological: [employer]ING [employer]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 intact, nl mental status, nl speech Skin: nl turgor Results Results 24hrs Laboratory Tests Test 01/08/19 17:16 01/08/19 20:18 01/09/19 02:18 01/09/19 05:38 Bedside Glucose 140 223 H 113 White Blood Count 5.7 Red Blood Count 2.66 L Hemoglobin 7.4 L Hematocrit 23.9 L Mean Corpuscular 89.8 Volume Mean Corpuscular 27.8 L Hemoglobin Mean Corpuscular 31.0 L Hemoglobin Concent Red Cell 13.1 Distribution Width Platelet Count 142 Mean Platelet Volume 10.7 H Immature 1.200 H Granulocytes % Neutrophils % 46.1 Lymphocytes % 40.9 Monocytes % 7.3 Eosinophils % 4.0 Basophils % 0.5 Nucleated Red Blood 0.0 Cells % Immature 0.070 H Granulocytes # Neutrophils # 2.6 Lymphocytes # 2.4 Monocytes # 0.4 Eosinophils # 0.2 Basophils # 0.0 Nucleated Red Blood 0.0 Cells # Sodium Level 146 H Potassium Level 4.8 Chloride Level 116 H Carbon Dioxide Level 22 Anion Gap 8 Blood Urea Nitrogen 43 H Creatinine 3.25 H Est Glomerular 19 L Filtrat Rate mL/min Glucose Level 89 # Calcium Level 8.5 Phosphorus Level 3.8 Magnesium Level 1.8 Iron Level 58 Total Iron Binding 239 L Capacity Percent Iron 24 Saturation Ferritin 63.1 Total Bilirubin 0.3 Direct Bilirubin 0.00 Indirect Bilirubin 0.3 Aspartate Amino 26 Transf (AST/SGOT) Alanine 31 Aminotransferase (AL T/SGPT) Alkaline Phosphatase 68 Total Protein 6.0 L Albumin 2.9 L Globulin 3.10 Albumin/Globulin 0.93 Ratio Test 01/09/19 08:07 01/09/19 12:16 Bedside Glucose 106 177 Medications Medication Current Medications Aspirin (Aspirin) 81 mg DAILY PO Last administered on 01/09/19 08:31; Admin Dose 81 MG; Start 01/06/19 at 09:00 Atorvastatin Calcium (Lipitor) 10 mg QHS PO Last administered on 01/08/19 20:23; Admin Dose 10 MG; Start 01/06/19 at 21:00 Carvedilol (Coreg) 25 mg BID PO Last administered on 01/09/19 08:31; Admin Dose 25 MG; Start 01/06/19 at 09:00 Clopidogrel Bisulfate (plaVIX) 75 mg DAILY PO Last administered on 01/09/19 08:31; Admin Dose 75 MG; Start 01/06/19 at 09:00 Gabapentin (Neurontin) 200 mg QHS PO Last administered on 01/08/19 20:23; Admin Dose 200 MG; Start 01/06/19 at 21:00 Insulin Glargine (Lantus) 10 units QHS SC Last administered on 01/08/19 20:26; Admin Dose 10 UNITS; Start 01/06/19 at 21:00 IV Flush (NS 3 ml) 3 ml PER PROTOCOL IV ; Start 01/06/19 at 03:00 Ondansetron HCl (Zofran Inj) 4 mg Q6H PRN IV NAUSEA/VOMITING; Start 01/06/19 at 03:00 Acetaminophen (Tylenol Tab) 650 mg Q6H PRN PO .PAIN 1-3 OR TEMP Last administered on 01/06/19 08:54; Admin Dose 650 MG; Start 01/06/19 at 03:00 Docusate Sodium (Colace) 100 mg Q12H PRN PO .CONSTIPATION; Start 01/06/19 at 03:00 Bisacodyl (Dulcolax) 5 mg DAILY PRN PO .CONSTIPATION; Start 01/06/19 at 03:00 Diagnostic Test (Pha) (Accu-Chek) 1 ea 02 XX Last administered on 01/09/19at 02:00; Admin Dose 1 EA; Start 01/07/19 at 02:00 Insulin Aspart (Novolog Insulin Pen) NOVOLOG *MILD* ALGORITHM WITH MEALS BEDTIME SC Last administered on 01/09/19at 12:20; Admin Dose 1 UNIT; Start 01/06/19 at 08:00 Miscellaneous Information 1 ea NOTE XX ; Start 01/06/19 at 05:00 Glucose (Glutose) 15 gm Q15M PRN PO DECREASED GLUCOSE; Start 01/06/19 at 05:00 Glucose (Glutose) 22.5 gm Q15M PRN PO DECREASED GLUCOSE; Start 01/06/19 at 05:00 Dextrose (D50w Syringe) 25 ml Q15M PRN IV DECREASED GLUCOSE; Start 01/06/19 at 05:00 Dextrose (D50w Syringe) 50 ml Q15M PRN IV DECREASED GLUCOSE; Start 01/06/19 at 05:00 Glucagon (Glucagen) 1 mg Q15M PRN IM DECREASED GLUCOSE; Start 01/06/19 at 05:00 Glucose (Glutose) 15 gm Q15M PRN BUCCAL DECREASED GLUCOSE; Start 01/06/19 at 05:00 Clonidine (Catapres) 0.1 mg Q6H PRN PO SBP GREATER THAN 170; Start 01/06/19 at 08:30 Montelukast Sodium (Singulair) 10 mg HS PO Last administered on 01/08/19at 20 :23; Admin Dose 10 MG; Start 01/06/19 at 21:00 Loratadine (Claritin) 10 mg DAILY PO Last administered on 01/09/19 08:31; Admin Dose 10 MG; Start 01/07/19 at 09:00 Ferrous Sulfate (Ferrous Sulfate (Ec)) 325 mg DAILY PO Last administered on 01/09/19at 08:31; Admin Dose 325 MG; Start 01/06/19 at 09:00 Insulin Aspart (Novolog Insulin Pen) 4 unit WITH MEALS SC Last administered on 01/09/19at 12:19; Admin Dose 4 UNIT; Start 01/06/19 at 17:35 Heparin Sodium (Porcine) (Heparin (5000 Units/1ml)) 5,000 unit BID SC Last administered on 01/08/19at 08:27; Admin Dose 5,000 UNIT; Start 01/06/19 at 21:00; Status Hold Guaifenesin/ Dextromethorphan (Robitussin Dm Liquid Cup) 5 ml Q4H PRN PO Cough Last administered on 01/07/19at 13:42; Admin Dose 5 ML; Start 01/07/19 at 13:00 Albuterol/ Ipratropium (Duoneb) 3 ml Q6HWA RESP THERAPY HHN Last administered on 01/09/19at 13:51; Admin Dose 3 ML; Start 01/07/19 at 14:00 Albuterol/ Ipratropium (Duoneb) 3 ml Q2H RESP THERAPY PRN HHN SHORTNESS OF BREATH; Start 01/07/19 at 14:30 Levofloxacin (Levaquin) 750 mg Q48H PO Last administered on 01/08/19at 14:13; Admin Dose 750 MG; Start 01/08/19 at 13:30 Amlodipine Besylate (Norvasc) 5 mg DAILY PO Last administered on 01/09/19at 12:17; Admin Dose 5 MG; Start 01/09/19 at 10:30 CAROLINE CHRISTIANSEN NP Jan 09, 2019 14:23
[2019-01-09 14:54] VITALS: BP 150/68; PULSE 74; RESP 20
--- NOTE | 2019-01-09 17:22 | CONS ---
Assessment/Plan Assessment/Plan Assessment/Plan (Daily) 1. acute hyperkalemia due to PHIL 2. Acute kidney injury on CKD IV due to sepsis and Hemodynamics 3. sepsis due to PNA and GI infection 4. Diarrhea- neg c- diff 5. possible Community acquired PNA 6. H/O DM II - unstable 7. 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 H/o CHF 9. Anemia - Hgb 7.3 s/p 1 U PRBC Plan: BUN/Cr 43/3.25, K normal, Na 146, Plan for 1 U PRBC IV abx zosyn and azithromycin, Azithromycin has been stopped Resume home dose of lasix pt has a full CKD work up done in clinic no need to repeat it he has CKD IV due to DM nephropahty will follow up Consultation Date/Type/Reason Admit Date/Time Jan 06, 2019 at 03:01 Initial Consult Date 01/06/19 Type of Consult NEPHROLOGY Requesting Provider: DMITRY PALMER Date/Time of Note DATE: 01/09/19 TIME: 17:22 Exam/Review of Systems Exam Vitals Vital Signs Date Temp Pulse Resp B/P (MAP) Pulse Ox O2 O2 Flow FiO2 Time Delivery Rate 01/09/19 74 20 150/68 92 Room Air 14:54 (95) 01/09/19 21 13:52 01/09/19 98.2 08:04 01/06/19 2.0 03:00 Intake and Output 01/08/19 01/08/19 01/09/19 1515:00 23:00 07:00 IntakeIntake Total 480 ml 1300 ml OutputOutput Total 600 ml BalanceBalance 480 ml 700 ml Exam Constitutional: alert Respiratory: congested cough, crackles/rales, diminished breath sounds Cardiovascular: regular rate and rhythm, nl pulses Gastrointestinal: soft, tender (TTP diffusely ) Musculoskeletal: swelling (1-2+ pitting edema ) 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, nl mental status, nl speech, nl strength Lymph: nl lymph nodes Results Result Diagram: 01/09/19 0538 01/09/19 0538 Results 24hrs Laboratory Tests Test 01/08/19 20:18 01/09/19 02:18 01/09/19 05:38 01/09/19 08:07 Bedside Glucose 223 H 113 106 White Blood Count 5.7 Red Blood Count 2.66 L Hemoglobin 7.4 L Hematocrit 23.9 L Mean Corpuscular 89.8 Volume Mean Corpuscular 27.8 L Hemoglobin Mean Corpuscular 31.0 L Hemoglobin Concent Red Cell 13.1 Distribution Width Platelet Count 142 Mean Platelet Volume 10.7 H Immature 1.200 H Granulocytes % Neutrophils % 46.1 Lymphocytes % 40.9 Monocytes % 7.3 Eosinophils % 4.0 Basophils % 0.5 Nucleated Red Blood 0.0 Cells % Immature 0.070 H Granulocytes # Neutrophils # 2.6 Lymphocytes # 2.4 Monocytes # 0.4 Eosinophils # 0.2 Basophils # 0.0 Nucleated Red Blood 0.0 Cells # Sodium Level 146 H Potassium Level 4.8 Chloride Level 116 H Carbon Dioxide Level 22 Anion Gap 8 Blood Urea Nitrogen 43 H Creatinine 3.25 H Est Glomerular 19 L Filtrat Rate mL/min Glucose Level 89 # Calcium Level 8.5 Phosphorus Level 3.8 Magnesium Level 1.8 Iron Level 58 Total Iron Binding 239 L Capacity Percent Iron 24 Saturation Ferritin 63.1 Total Bilirubin 0.3 Direct Bilirubin 0.00 Indirect Bilirubin 0.3 Aspartate Amino 26 Transf (AST/SGOT) Alanine 31 Aminotransferase (AL T/SGPT) Alkaline Phosphatase 68 Total Protein 6.0 L Albumin 2.9 L Globulin 3.10 Albumin/Globulin 0.93 Ratio Test 01/09/19 12:16 Bedside Glucose 177 Medications Medication Current Medications Aspirin (Aspirin) 81 mg DAILY PO Last administered on 01/09/19 08:31; Admin Dose 81 MG; Start 01/06/19 at 09:00 Atorvastatin Calcium (Lipitor) 10 mg QHS PO Last administered on 01/08/19 20:23; Admin Dose 10 MG; Start 01/06/19 at 21:00 Carvedilol (Coreg) 25 mg BID PO Last administered on 01/09/19 08:31; Admin Dose 25 MG; Start 01/06/19 at 09:00 Clopidogrel Bisulfate (plaVIX) 75 mg DAILY PO Last administered on 01/09/19 08:31; Admin Dose 75 MG; Start 01/06/19 at 09:00 Gabapentin (Neurontin) 200 mg QHS PO Last administered on 01/08/19 20:23; Admin Dose 200 MG; Start 01/06/19 at 21:00 Insulin Glargine (Lantus) 10 units QHS SC Last administered on 01/08/19at 20:26; Admin Dose 10 UNITS; Start 01/06/19 at 21:00 IV Flush (NS 3 ml) 3 ml PER PROTOCOL IV ; Start 01/06/19 at 03:00 Ondansetron HCl (Zofran Inj) 4 mg Q6H PRN IV NAUSEA/VOMITING; Start 01/06/19 at 03:00 Acetaminophen (Tylenol Tab) 650 mg Q6H PRN PO .PAIN 1-3 OR TEMP Last administered on 01/06/19at 08:54; Admin Dose 650 MG; Start 01/06/19 at 03:00 Docusate Sodium (Colace) 100 mg Q12H PRN PO .CONSTIPATION; Start 01/06/19 at 03:00 Bisacodyl (Dulcolax) 5 mg DAILY PRN PO .CONSTIPATION; Start 01/06/19 at 03:00 Diagnostic Test (Pha) (Accu-Chek) 1 ea 02 XX Last administered on 01/09/19at 02:00; Admin Dose 1 EA; Start 01/07/19 at 02:00 Insulin Aspart (Novolog Insulin Pen) NOVOLOG *MILD* ALGORITHM WITH MEALS BEDTIME SC Last administered on 01/09/19at 12:20; Admin Dose 1 UNIT; Start 01/06/19 at 08:00 Miscellaneous Information 1 ea NOTE XX ; Start 01/06/19 at 05:00 Glucose (Glutose) 15 gm Q15M PRN PO DECREASED GLUCOSE; Start 01/06/19 at 05:00 Glucose (Glutose) 22.5 gm Q15M PRN PO DECREASED GLUCOSE; Start 01/06/19 at 05:00 Dextrose (D50w Syringe) 25 ml Q15M PRN IV DECREASED GLUCOSE; Start 01/06/19 at 05:00 Dextrose (D50w Syringe) 50 ml Q15M PRN IV DECREASED GLUCOSE; Start 01/06/19 at 05:00 Glucagon (Glucagen) 1 mg Q15M PRN IM DECREASED GLUCOSE; Start 01/06/19 at 05:00 Glucose (Glutose) 15 gm Q15M PRN BUCCAL DECREASED GLUCOSE; Start 01/06/19 at 05:00 Clonidine (Catapres) 0.1 mg Q6H PRN PO SBP GREATER THAN 170 Last administered on 01/09/19at 14:22; Admin Dose 0.1 MG; Start 01/06/19 at 08:30 Montelukast Sodium (Singulair) 10 mg HS PO Last administered on 01/08/19 20:23; Admin Dose 10 MG; Start 01/06/19 at 21:00 Loratadine (Claritin) 10 mg DAILY PO Last administered on 01/09/19 08:31; Admin Dose 10 MG; Start 01/07/19 at 09:00 Ferrous Sulfate (Ferrous Sulfate (Ec)) 325 mg DAILY PO Last administered on 01/09/19 08:31; Admin Dose 325 MG; Start 01/06/19 at 09:00 Insulin Aspart (Novolog Insulin Pen) 4 unit WITH MEALS SC Last administered on 01/09/19 12:19; Admin Dose 4 UNIT; Start 01/06/19 at 17:35 Heparin Sodium (Porcine) (Heparin (5000 Units/1ml)) 5,000 unit BID SC Last administered on 01/08/19 08:27; Admin Dose 5,000 UNIT; Start 01/06/19 at 21:00; Status Hold Guaifenesin/ Dextromethorphan (Robitussin Dm Liquid Cup) 5 ml Q4H PRN PO Cough Last administered on 01/07/19 13:42; Admin Dose 5 ML; Start 01/07/19 at 13:00 Albuterol/ Ipratropium (Duoneb) 3 ml Q6HWA RESP THERAPY HHN Last administered on 01/09/19 13:51; Admin Dose 3 ML; Start 01/07/19 at 14:00 Albuterol/ Ipratropium (Duoneb) 3 ml Q2H RESP THERAPY PRN HHN SHORTNESS OF BREATH; Start 01/07/19 at 14:30 Levofloxacin (Levaquin) 750 mg Q48H PO Last administered on 01/08/19 14:13; Admin Dose 750 MG; Start 01/08/19 at 13:30 Amlodipine Besylate (Norvasc) 5 mg DAILY PO Last administered on 01/09/19 1 2:17; Admin Dose 5 MG; Start 01/09/19 at 10:30 ADIS MARKS MD Jan 09, 2019 17:22
[2019-01-09 19:28] VITALS: BP 151/65; PULSE 69; RESP 20
[2019-01-09] MEDS: GABAPENTIN 100 MG CAP PO SCH (20:32)
[2019-01-09] MEDS: MONTELUKAST 10 MG TAB PO SCH (20:32)
[2019-01-09] MEDS: ATORVASTATIN 10 MG TAB PO SCH (20:32)
[2019-01-09] MEDS: INSULIN GLARGINE [LANTus] (100 UNITS/ML) SYG SC SCH (20:34)
[2019-01-10 01:58] VITALS: BP 153/69; PULSE 68; RESP 20
[2019-01-10] MEDS: ACCU-CHEK XX SCH (02:00)
[2019-01-10 07:30] VITALS: BP 167/73; PULSE 67; RESP 20
[2019-01-10] MEDS: INSULIN ASPART [NOVOLOG] 3 ML PEN SC SCH ×5 (08:00→13:31)
[2019-01-10] MEDS: LORATADINE 10 MG TAB PO SCH (08:25)
[2019-01-10] MEDS: AMLODIPINE 5 MG TAB PO SCH (08:25)
[2019-01-10] MEDS: ASPIRIN 81 MG TAB PO SCH (08:26)
[2019-01-10] MEDS: FERROUS SULFATE (EC) 325 MG TAB PO SCH (08:26)
[2019-01-10] MEDS: CLOPIDOGREL 75 MG TAB PO SCH (08:28)
[2019-01-10] MEDS: ALBUTEROL/IPRATROPIUM (NEB) 3 ML AMP HHN SCH (08:49)
[2019-01-10] MEDS: GUAIFENESIN/DM 5ML CUP PO PRN (09:22)
[2019-01-10 09:23] VITALS: BP 136/63; PULSE 67
--- NOTE | 2019-01-10 11:07 | CONS ---
Assessment/Plan Assessment/Plan Assessment/Plan (Daily) 1. acute hyperkalemia due to PHIL 2. Acute kidney injury on CKD IV due to sepsis and Hemodynamics 3. sepsis due to PNA and GI infection 4. Diarrhea- neg c- diff 5. possible Community acquired PNA 6. H/O DM II - unstable 7. 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 H/o CHF 9. Anemia - Hgb 7.3 s/p 1 U PRBC Plan: BUN/Cr 43/3.25, K normal, Na 146, Plan for 1 U PRBC IV abx zosyn and azithromycin, Azithromycin has been stopped Resume home dose of lasix pt has a full CKD work up done in clinic no need to repeat it he has CKD IV due to DM nephropahty will follow up Consultation Date/Type/Reason Admit Date/Time Jan 06, 2019 at 03:01 Initial Consult Date 01/06/19 Type of Consult NEPHROLOGY Requesting Provider: DMITRY PALMER Date/Time of Note DATE: 01/10/19 TIME: 11:07 Exam/Review of Systems Exam Vitals Vital Signs Date Temp Pulse Resp B/P (MAP) Pulse Ox O2 O2 Flow FiO2 Time Delivery Rate 01/10/19 67 136/63 09:23 (87) 01/10/19 20 95 21 08:50 01/10/19 98.4 Room Air 07:30 Intake and Output 01/09/19 01/09/19 01/10/19 1515:00 23:00 07:00 IntakeIntake Total 240 ml 540 ml BalanceBalance 240 ml 540 ml Results Result Diagram: 01/10/19 0547 01/10/19 0547 Results 24hrs Laboratory Tests Test 01/09/19 12:16 01/09/19 17:40 01/09/19 20:31 01/10/19 05:47 Bedside Glucose 177 277 H 177 White Blood Count 7.0 # Red Blood Count 3.08 L Hemoglobin 8.7 L Hematocrit 27.7 L Mean Corpuscular 89.9 Volume Mean Corpuscular 28.2 L Hemoglobin Mean Corpuscular 31.4 L Hemoglobin Concent Red Cell 13.2 Distribution Width Platelet Count 155 Mean Platelet Volume 10.9 H Immature 2.000 H Granulocytes % Neutrophils % 49.1 Lymphocytes % 36.4 Monocytes % 7.7 Eosinophils % 3.9 Basophils % 0.9 Nucleated Red Blood 0.0 Cells % Immature 0.140 H Granulocytes # Neutrophils # 3.4 Lymphocytes # 2.5 Monocytes # 0.5 Eosinophils # 0.3 Basophils # 0.1 Nucleated Red Blood 0.0 Cells # Sodium Level 143 Potassium Level 4.9 Chloride Level 114 H Carbon Dioxide Level 22 Anion Gap 7 Blood Urea Nitrogen 43 H Creatinine 3.15 H Est Glomerular 20 L Filtrat Rate mL/min Glucose Level 121 Calcium Level 8.6 Test 01/10/19 08:20 Bedside Glucose 122 Medications Medication Current Medications Aspirin (Aspirin) 81 mg DAILY PO Last administered on 01/10/19 08:26; Admin Dose 81 MG; Start 01/06/19 at 09:00 Atorvastatin Calcium (Lipitor) 10 mg QHS PO Last administered on 01/09/19 20:32; Admin Dose 10 MG; Start 01/06/19 at 21:00 Carvedilol (Coreg) 25 mg BID PO Last administered on 01/10/19 08:25; Admin Dose 25 MG; Start 01/06/19 at 09:00 Clopidogrel Bisulfate (plaVIX) 75 mg DAILY PO Last administered on 01/10/19 08:28; Admin Dose 75 MG; Start 01/06/19 at 09:00 Gabapentin (Neurontin) 200 mg QHS PO Last administered on 01/09/19 20:32; Admin Dose 200 MG; Start 01/06/19 at 21:00 Insulin Glargine (Lantus) 10 units QHS SC Last administered on 01/09/19 20:34; Admin Dose 10 UNITS; Start 01/06/19 at 21:00 IV Flush (NS 3 ml) 3 ml PER PROTOCOL IV ; Start 01/06/19 at 03:00 Ondansetron HCl (Zofran Inj) 4 mg Q6H PRN IV NAUSEA/VOMITING; Start 01/06/19 at 03:00 Acetaminophen (Tylenol Tab) 650 mg Q6H PRN PO .PAIN 1-3 OR TEMP Last administered on 01/06/19 08:54; Admin Dose 650 MG; Start 01/06/19 at 03:00 Docusate Sodium (Colace) 100 mg Q12H PRN PO .CONSTIPATION; Start 01/06/19 at 03:00 Bisacodyl (Dulcolax) 5 mg DAILY PRN PO .CONSTIPATION; Start 01/06/19 at 03:00 Diagnostic Test (Pha) (Accu-Chek) 1 ea 02 XX Last administered on 01/09/19at 02:00; Admin Dose 1 EA; Start 01/07/19 at 02:00 Insulin Aspart (Novolog Insulin Pen) NOVOLOG *MILD* ALGORITHM WITH MEALS BEDTIME SC Last administered on 01/09/19at 17:43; Admin Dose 4 UNIT; Start 01/06/19 at 08:00 Miscellaneous Information 1 ea NOTE XX ; Start 01/06/19 at 05:00 Glucose (Glutose) 15 gm Q15M PRN PO DECREASED GLUCOSE; Start 01/06/19 at 05:00 Glucose (Glutose) 22.5 gm Q15M PRN PO DECREASED GLUCOSE; Start 01/06/19 at 05:00 Dextrose (D50w Syringe) 25 ml Q15M PRN IV DECREASED GLUCOSE; Start 01/06/19 at 05:00 Dextrose (D50w Syringe) 50 ml Q15M PRN IV DECREASED GLUCOSE; Start 01/06/19 at 05:00 Glucagon (Glucagen) 1 mg Q15M PRN IM DECREASED GLUCOSE; Start 01/06/19 at 05:00 Glucose (Glutose) 15 gm Q15M PRN BUCCAL DECREASED GLUCOSE; Start 01/06/19 at 05:00 Clonidine (Catapres) 0.1 mg Q6H PRN PO SBP GREATER THAN 170 Last administered on 01/09/19at 14:22; Admin Dose 0.1 MG; Start 01/06/19 at 08:30 Montelukast Sodium (Singulair) 10 mg HS PO Last administered on 01/09/19at 20:32; Admin Dose 10 MG; Start 01/06/19 at 21:00 Loratadine (Claritin) 10 mg DAILY PO Last administered on 01/10/19 08:25; Admin Dose 10 MG; Start 01/07/19 at 09:00 Ferrous Sulfate (Ferrous Sulfate (Ec)) 325 mg DAILY PO Last administered on 01/10/19 08:26; Admin Dose 325 MG; Start 01/06/19 at 09:00 Insulin Aspart (Novolog Insulin Pen) 4 unit WITH MEALS SC Last administered on 01/10/19 08:23; Admin Dose 4 UNIT; Start 01/06/19 at 17:35 Heparin Sodium (Porcine) (Heparin (5000 Units/1ml)) 5,000 unit BID SC Last administered on 01/08/19 08:27; Admin Dose 5,000 UNIT; Start 01/06/19 at 21:00; Status Hold Guaifenesin/ Dextromethorphan (Robitussin Dm Liquid Cup) 5 ml Q4H PRN PO Cough Last administered on 01/10/19 09:22; Admin Dose 5 ML; Start 01/07/19 at 13:00 Albuterol/ Ipratropium (Duoneb) 3 ml Q6HWA RESP THERAPY HHN Last administered on 01/10/19 08:49; Admin Dose 3 ML; Start 01/07/19 at 14:00 Albuterol/ Ipratropium (Duoneb) 3 ml Q2H RESP THERAPY PRN HHN SHORTNESS OF BREATH; Start 01/07/19 at 14:30 Levofloxacin (Levaquin) 750 mg Q48H PO Last administered on 01/08/19at 14:13; Admin Dose 750 MG; Start 01/08/19 at 13:30 Amlodipine Besylate (Norvasc) 5 mg DAILY PO Last administered on 01/10/19 08:25; Admin Dose 5 MG; Start 01/09/19 at 10:30 ADIS MARKS MD Jan 10, 2019 11:07
--- NOTE | 2019-01-10 11:37 | DS ---
Date/Time of Note Date/Time of Note DATE: 01/10/19 TIME: 11:36 Discharge Summary Admission/Discharge Info Admit Date/Time Jan 06, 2019 at 03:01 Discharge Date/Time Discharge Diagnosis 1. S/P sepsis with leukocytosis, tachycardia, tachypnea, and febrile illness, present on admission secondary to underlying community-acquired pneumonia. 2. Community-acquired pneumonia. 3. Ischemic cardiomyopathy. 4. History of CAD. 5. Chronic kidney disease. 6. Thrombocytopenia. 7. Dyslipidemia. 8. Normocytic anemia. Patient Condition: Stable Hospital Course This is a 68-year-old male history of hypertension, CAD, CKD, who came to the hospital due to reports of fever and cough. He also reported having some shortness of breath. Patient did have chest x-ray done. He was found to have sepsis with pneumonia. He was provided with appropriate antibiotics. During his course of stay he did improve. He was also noted with renal insufficiency and he was seen by pharmacovigilance specialist. We did avoid nephrotoxic medications as possible. We did monitor his renal panel. He was otherwise medically with his cardiovascular medications for his cardiomyopathy and antiplatelet and statin for history of CAD. He was noted to be thrombocytopenic initially while he was on Zosyn for his pneumonia we did discontinue this and change his antibiotics appropriately. He was noted to be anemic likely of chronic disease. No evidence of bleeding. He was provided with blood transfusion. He did improve with this. During his course of stay he did improve. Plan of care was discussed with the patient and he verbalized understanding. He was advised for outpatient follow-up with pharmacovigilance specialist. On the day of discharge patient was in stable condition Discussed POC with Dr. Juarez Hulbert Meds Active Scripts Guaifenesin* (Robitussin*) 100 Mg/5 Ml Syrup, 200 MG PO Q4H PRN for COUGH, #6 OZ Prov:CAROLINE CHRISTIANSEN MANAGER [employer] 01/10/19 Gabapentin* (Gabapentin*) 100 Mg Capsule, 200 MG PO QHS, #30 CAP Prov:CAROLINE CHRISTIANSEN MANAGER [employer] 01/09/19 Amlodipine Besylate* (Amlodipine Besylate*) 5 Mg Tablet, 5 MG PO DAILY, #30 TAB Prov:CAROLINE CHRISTIANSEN MANAGER [employer] 01/09/19 Carvedilol* (Carvedilol*) 25 Mg Tablet, 25 MG PO BID, #60 TAB Prov:CAROLINE CHRISTIANSEN MANAGER [employer] 01/09/19 Levofloxacin* (Levaquin*) 750 Mg Tablet, 750 MG PO DAILY, #7 TAB Prov:CAROLINE CHRISTIANSEN MANAGER [employer] 01/09/19 Ferrous Sulfate (Ferrous Sulfate) 325 Mg Tablet.dr, 325 MG PO DAILY, #30 TAB Prov:CAROLINE CHRISTIANSEN NP 01/09/19 Atorvastatin Calcium (Atorvastatin Calcium) 10 Mg Tablet, 10 MG PO QHS, #30 TAB Prov:EBONY LEBRON MD 04/01/16 Insulin Glargine* (Lantus*) 100 Unit/Ml Soln, 10 UNIT SC QHS for 90 Days Prov:WILNER CANSECO MD 04/01/16 [Nicotine (14 Mg/24 Hr)] 1 PATCH PATCH No Conflict Check, 1 PATCH TRANSDERM DAILY, #30 Prov:EBONY LEBRON MD 04/01/16 Aspirin (Aspirin) 81 Mg Chew, 81 MG PO DAILY, #30 TAB 1 Refill Prov:EBONY LEBRON MD 04/01/16 Reported Medications Cetirizine Hcl* (Cetirizine Hcl*) 10 Mg Tab.chew, 10 MG PO BID, #30 TAB 01/06/19 Clonidine Hcl* (Clonidine Hcl*) 0.1 Mg Tab, 0.1 MG PO Q6 for sbp > 160, TAB 01/06/19 Montelukast Sodium* (Montelukast Sodium*) 5 Mg Tab.chew, 10 MG PO DAILY, #30 TAB 01/06/19 Clopidogrel Bisulfate (Clopidogrel) 75 Mg Tablet, 75 MG PO DAILY, #30 TAB 12/25/16 Discontinued Reported Medications Furosemide* (Furosemide*) 40 Mg Tablet, 40 MG PO DAILY for edema, TAB 01/06/19 Carvedilol* (Carvedilol*) 25 Mg Tablet, 12.5 MG PO BID, #60 TAB 12/25/16 Lisinopril* (Lisinopril*) 10 Mg Tablet, 10 MG PO DAILY, #30 TAB 12/25/16 Spironolactone* (Aldactone*) 25 Mg Tablet, 25 MG PO DAILY, #30 TAB 12/25/16 Discontinued Scripts Sulfamethoxazole/Trimethoprim* (Bactrim Ds* Tablet) 1 Each Tablet, 1 TAB PO BID, #20 TAB Prov:LAMBERT MARIANO PA-C 02/27/18 Cephalexin* (Keflex*) 500 Mg Capsule, 500 MG PO QID for 10 Days, CAP Prov:LAMBERT MARIANO PA-C 02/27/18 Gabapentin* (Gabapentin*) 100 Mg Capsule, 200 MG PO QHS, #30 CAP 0 Refills Prov:FERNANDEZ GIANG MD 12/27/16 Mupirocin* (Bactroban*) 2% -22 Gram Oint...g., 1 APPLIC TOP TID for 30 Days, #1 TUB SITE OF APPLICATION: Prov:FERNANDEZ GIANG MD 12/27/16 Vitamin B Complex (B Complex # 1) 1 Each Tablet, 1 EACH PO DAILY for 30 Days, #30 TAB 3 Refills Prov:FERNANDEZ GIANG MD 12/27/16 Sitagliptin Phos/Metformin HCl (Janumet 50-1,000 mg Tablet) 1 Each Tablet, 1 EACH PO BID, #60 TAB Prov:EBONY LEBRON MD 04/01/16 Nitroglycerin* (Nitrostat*) 0.4 Mg Tab.subl, 1 TAB SL Q5M PRN for CHEST PAIN, #30 Prov:EBONY LEBRON MD 04/01/16 Follow-up Plan Follow up with Dr. Antwon Hodges in one week Office Address Antwon Hodges M.D., [address] [address] Office Primary Care Provider Antwon Hodges MD Time spent on discharge: > 30 minutes Pending Labs Laboratory Tests Test 01/09/19 12:16 01/09/19 17:40 01/09/19 20:31 01/10/19 05:47 Bedside 177 277 177 Glucose mg/dL (70-220) mg/dL (70-220) mg/dL (70-220) White Blood 7.0 Count 10^3/ul (4.8-1 0.8) Red Blood 3.08 Count 10^6/ul (4.70- 6.10) Hemoglobin 8.7 g/dl (14.0-18. 0) Hematocrit 27.7 % (42.0-52.0) Mean 89.9 Corpuscular fl (82.0-101.0 Volume ) Mean 28.2 Corpuscular pg (29.0-33.0) Hemoglobin Mean 31.4 Corpuscular g/dl (32.0-37. Hemoglobin Conc 0) ent Red Cell 13.2 Distribution % (11.5-14.5) Width Platelet Count 155 10^3/UL (140-4 15) Mean Platelet 10.9 Volume fl (7.4-10.4) Immature 2.000 Granulocytes % % (0.001-0.429 ) Neutrophils % 49.1 % (39.0-77.0) Lymphocytes % 36.4 % (15.0-51.0) Monocytes % 7.7 % (0.0-11.0) Eosinophils % 3.9 % (0.0-7.0) Basophils % 0.9 % (0.0-2.0) Nucleated Red 0.0 Blood Cells % /100WBC (0.0-0 .0) Immature 0.140 Granulocytes # 10^3/ul (0.0-0 .031) Neutrophils # 3.4 10^3/ul (1.6-7 .5) Lymphocytes # 2.5 10^3/ul (0.8-2 .9) Monocytes # 0.5 10^3/ul (0.3-0 .9) Eosinophils # 0.3 10^3/ul (0.0-0 .5) Basophils # 0.1 10^3/ul (0.0-0 .1) Nucleated Red 0.0 Blood Cells # 10^3/ul (0.0-0 .0) Sodium Level 143 mmol/L (135-14 4) Potassium 4.9 Level mmol/L (3.5-5. 1) Chloride Level 114 mmol/L (97-110 ) Carbon Dioxide 22 Level mmol/L (21-31) Anion Gap 7 (5-13) Blood Urea 43 Nitrogen mg/dl (7-20) Creatinine 3.15 mg/dl (0.61-1. 24) Est Glomerular 20 Filtrat mL/min (>60) Rate mL/min Glucose Level 121 mg/dl (70-220) Calcium Level 8.6 mg/dl (8.4-10. 2) Test 7/30/19 08:20 Bedside 122 Glucose mg/dL (70-220) CAROLINE CHRISTIANSEN NP Jan 10, 2019 11:37
[2019-01-10] MEDS: LEVOFLOXACIN 750 MG TABLET PO SCH (12:21)
== END 2019-01-10 14:00 | disposition home or self-care (01) | DRG 871 ==
LOC: E/R 21:45 → PP2 01-06 03:01
PROVIDERS: ADMIT Family Medicine; ATTEND Family Medicine
PROC: 30233N1 Transfusion of Nonautologous Red Blood Cells into Peripheral Vein, Percutaneous Approach (ICD-10-PCS; principal; 2019-01-09)
DX: A41.9 Sepsis, unspecified organism (principal); J18.9 Pneumonia, unspecified organism; I13.0 Hypertensive heart and chronic kidney disease with heart failure and stage 1 through stage 4 chronic kidney disease, or unspecified chronic kidney disease; N18.4 Chronic kidney disease, stage 4 (severe); N17.9 Acute kidney failure, unspecified; E11.22 Type 2 diabetes mellitus with diabetic chronic kidney disease; I50.9 Heart failure, unspecified; I25.5 Ischemic cardiomyopathy; E11.21 Type 2 diabetes mellitus with diabetic nephropathy; D69.6 Thrombocytopenia, unspecified; E83.42 Hypomagnesemia; D63.1 Anemia in chronic kidney disease; I25.10 Atherosclerotic heart disease of native coronary artery without angina pectoris; Z79.82 Long term (current) use of aspirin; Z79.4 Long term (current) use of insulin; Z79.84 Long term (current) use of oral hypoglycemic drugs; Z95.5 Presence of coronary angioplasty implant and graft
CPT/HCPCS: 36415; 36430; 71045; 71250; 80048; 80053; 80061; 81001; 82728; 82962; 83036; 83540; 83605; 83735; 84100; 84443; 84484; 85014; 85018; 85025; 85610; 85730; 86850; 86900; 86901; 86920; 87086; 93005; 94640; 94664; 96374; 96375; J0456; J0696; J1644; J1815; J2543; J7030; J7040; P9016